=== PATIENT | male | born 1955 | race Caucasian/White ===

== ENCOUNTER → 2017-08-11 07:03 | Outpatient (CLI) | payer OTHER, SELFPAY ==
--- NOTE | 2017-08-11 07:45 | MRI_ITS ---
STUDY: MRI BRAIN WITH AND WITHOUT CONTRAST (ATTENTION INTERNAL AUDITORY CANALS - I.A.C.'s) REASON FOR EXAM: Male, 61 years old. Left ear tinnitus for 4 weeks TECHNIQUE: Standardized multiplanar fat and water weighted pulse sequences were obtained. 9 ml of Gadavist contrast material was administered intravenously for the contrast portion of the examination. COMPARISON: None. FINDINGS: Normal bilateral temporal bones. Normal bilateral internal auditory canals. There is no demonstrated intracanalicular or cisternal vestibular schwannoma (acoustic neuroma). There is no enhancement of the bilateral VIIth or VIIIth cranial nerves. Normal bilateral cochlea, vestibules and semicircular canals. Normal size of the ventricles and extra-axial spaces for the patient's age. Normal white matter tracts of the supratentorial brain. Normal bilateral basal ganglia. Normal thalami. Normal flow voids within the major intracranial circulation suggesting patency by spin echo criteria. Normal venous enhancement. There is no enhancing intra-axial or extra-axial abnormality. There is no extra-axial fluid accumulation. Normal sella turcica, pituitary gland, infundibular stalk, optic chiasm and hypothalamus. Normal tectal plate and pineal gland. Normal midbrain, pk and medulla. Normal cerebellum. Normal basal cisterns. No demonstrated orbital abnormality, within the constraints of a routine brain study. Right sphenoid sinus disease. Left mastoid sinus disease. Normal visualized soft tissue structures. Normal visualized upper cervical spine. MRI/Brain W/WO Contrast IMPRESSION: Normal unenhanced and enhanced MRI of the bilateral internal auditory canals (I.A.C's). No evidence of acute intra-axial pathology. Right sphenoid and left mastoid sinus disease. Electronically Signed: Saroj Villanueva MD at 3:20 EDT Tel , Service support ,
== END ==
PROVIDERS: Family Provider Internal Medicine; PCP Internal Medicine; Visit Provider Otolaryngology Otolaryngology/Facial Plastic Surgery
DX: H91.92 Unspecified hearing loss, left ear (principal)
CPT/HCPCS: 70553; A9585

== ENCOUNTER 2019-08-16 18:26 | Emergency (ER) | payer OTHER, SELFPAY ==
[2019-08-16 18:27] VITALS: BP 165/105; PULSE 87; RESP 16; TEMP 36.4; O2SAT 99; BMI 30.9
[2019-08-16] MEDS: Ondansetron 4 MG/2 ML Vial IV ×2 (19:08→21:20)
--- NOTE | 2019-08-16 19:16 | CT_ITS ---
STUDY: CT ABDOMEN AND PELVIS WITHOUT CONTRAST REASON FOR EXAM: Male, 63 years old. FREQUENT URINATION WITH DECREASED AMOUNTS, RIGHT FLANK PAIN AND ABD PAIN, HX HTN RADIATION DOSAGE (If Supplied By Facility): CTDIvol = ( 11.54 ) mGy, DLP = ( 623.03 ) mGycm TECHNIQUE: Transaxial images were obtained from the dome of the diaphragm to the symphysis pubis without oral contrast, and without intravenous contrast. Sagittal and coronal images were reconstructed. Individualized dose optimization techniques were used for this CT. COMPARISON: None. FINDINGS: There are mild bibasilar pulmonary opacities. The visualized portions of the heart are within normal limits. Normal liver. Normal gallbladder and extrahepatic biliary system. Normal spleen. Normal pancreas. Normal bilateral adrenal glands. There are multiple bilateral renal cysts. There are multiple right renal calculi. Largest measures 3 mm. There is moderate right hydronephrosis and hydroureter. There is a 3.5 mm calculus within the distal right ureter at the ureterovesical junction. There is 2.6 cm x 2 cm left renal cyst with peripheral calcification. There is a 1 cm hyperdense lesion in the upper pole of the left kidney. 1 mm calculus within upper pole left kidney best seen on coronal imaging. Normal visualized stomach. Normal small intestine. Normal colon. Punctate appendicolith otherwise normal appendix. No CT evidence for appendicitis Normal abdominal aorta. Normal inferior vena cava. Normal retroperitoneum. Normal urinary bladder. Normal abdominal wall. Normal osseous structures. CT/Abdomen/Pelvis without Cont IMPRESSION: moderate right hydronephrosis and hydroureter. There is a 3.5 mm calculus within the distal right ureter at the ureterovesical junction Bilateral renal nephrolithiasis Multiple bilateral renal cysts Complicated 2.6 x 2 cm left renal cyst with peripheral calcification Indeterminate 1 cm hyperdense lesion within the upper pole of the left kidney most likely a hemorrhagic cyst. This should be further evaluated with CT with contrast or MRI with and without contrast to exclude solid renal lesion Small periumbilical fatty hernia Punctate appendicoliths, no appendicitis Electronically Signed: Reginald Schultz, at 21:04 EDT Tel , Service support ,
[2019-08-16] MEDS: HYDROmorphone 1 MG/ML Syringe IV ×2 (19:21→21:21)
[2019-08-16 19:30] LABS: Bacteria 0 SEEN /hpf (None Seen); Squamous Epithelial Cells - UA 0 SEEN /hpf (0-5); White Blood Cells 0 SEEN /hpf (0-5)
[2019-08-16 19:32] LABS: Absolute Lymphocyte Count 1.59 X10^3/uL (0.83-4.51); Absolute Neutrophil Count 10.7 X10^3/uL (2.0-7.7); Basophil# 0.02 X10^3/uL; Basophil% 0.2 % (0-1); Color, Urine Yellow (Yellow); Eosinophil# 0.01 X10^3/uL; Eosinophils% 0.1 % (0-5); Glucose, Dipstick Normal (Normal); Hematocrit 45.3 % (40-54); Ketone-Dipstick 5 mg/dl (Negative); Leukocyte Esterase-Dipstick Negative /ul (Negative); Lymphocyte # 1.59 X10^3/ul (4.0); Lymphocyte % 12.4 % (19-41); Mean Corp Hgb Conc 35.3 g/dL (32-36); Mean Corpuscular Hgb 30.3 pg (27.0-32.0); Mean Corpuscular Volume 85.8 fL (80-94); Mean Platelet Vol. 9.5 fl (6.2-12.0); Monocyte# 0.44 X10^3/uL; Monocyte% 3.4 % (0-10); NRBC Flagged by Analyzer 0 % (0-5); Neutrophil # 10.71 X10^3/uL (2.7-7.7); Neutrophil % 83.5 % (47-70); Nitrite-Dipstick Negative (Negative); Occult Blood-Urine 150 /ul (Negative); Platelet Count 240 K/mm3 (150-450); Protein-Dipstick 100 mg/dl (Negative); RBC Distribution Width CV 12.9 % (11.6-14.6); RBC Distribution Width SD 39.9 fl (35.1-43.9); Red Blood Count 5.28 M/mm3 (4.6-6.2); Urine Bilirubin Dipstick Negative (Negative); Urine Clarity Clear (Clear); Urine Urobilinogen Normal (Normal); White Blood Count 12.8 K/mm3 (4.4-11.0)
[2019-08-16 19:37] LABS: Mucous, Urine RARE /hpf (<or=2+)
[2019-08-16 19:38] LABS: Red Blood Cells-Urine 0-5 SEEN /hpf (0-5)
[2019-08-16 19:40] LABS: Anion Gap 10 (5-15); BUN 23 mg/dL (7-18); BUN/Creat Ratio 23.8 RATIO (10-20); Calcium,Total 10.2 mg/dL (8.5-10.1); Chloride 103 mmol/L (98-107); Creatinine, Serum 0.97 mg/dL (0.70-1.30); EST Glomerular Filtration Rate 84 mL/min (>60); Est Glom Filt Rate - Afr Amer 101 mL/min (>60); Estimated Creatinine Clearance 79.97 ml/min; Glucose 114 mg/dL (74-106); Potassium 3.3 mmol/L (3.5-5.1); Sodium Level 138 mmol/L (136-145)
[2019-08-16] MEDS: 0.9% Normal Saline 1,000 ML 125 ML IV (20:22)
--- NOTE | 2019-08-16 22:21 | ED.DCSUM_ITS ---
- ER Visit Summary Date of Service: 08/16/19 Chief Complaint: Flank pain radiating to his groin. History of Present Illness: The patient is a 63 M past medical history of hypertension. Patient states that he had right flank pain started this morning gradually. Associated nausea vomiting secondary to the pain. This is been pretty constant but at times it waxes and wanes in severity. He feels the urge to urinate but says it does not hurt to pee. He has not seen any gross blood. He is able to empty his bladder when he voids. He denies any fever or chills. No abdominal trauma. No prior history. Physical Examination: Older male no acute distress complain of pain vital signs are stable afebrile. H EENT exam unremarkable. Neck nontender no lymphadenopathy. Lungs clear to auscultation bilaterally. Heart regular rhythm no murmur. Abdomen soft, mildly tender right lower quadrant. Not McBurney's point. No peritoneal signs. No hernia or masses. No pulsatile mass. No distention. External exam unremarkable nontender. Extremities moves all 4. Neurovascular intact. Back nontender. Neurologically is awake alert with no focal motor deficits. Test Results: CBC shows white count 12.8 hemoglobin 16. Electrolytes unremarkable potassium 3.3 normal creatinine and gap UA positive for blood but no signs of infection. CT flank study without contrast read both by the radiologist and me shows a right distal ureter 3.5 mm stone with hydroureter and hydronephrosis. There is also stones in both kidneys and renal cyst. The appendix is not seen and there is no signs of appendicitis. Emergency Department Course and Treatment: This appears to be an acute kidney stone. Patient was treated with Dilaudid fluids and Zofran. On multiple repeat exams his pain is much better. He had I discussed all test results. He is comfortable being discharged home. Treatment Plan: [place] for pain. Zofran for nausea. Follow-up with urology. Disposition: Discharge Impression: Acute right flank pain secondary to distal right 3 mm ureteral stone Incidental finding of a renal cyst that may need further evaluation. This note was generated with [employer] dictation software. It may contain incorrect words, spelling, and punctuation that were not noted in review of the chart prior to signing ED Disposition - Plan for ED Patient: Referrals: Garry Moran [Primary Care Provider] -
--- NOTE | 2019-08-16 22:24 | DCINST.ED_ITS ---
ED Disposition - Plan for ED Patient: Disposition: Home or Assisted Living Instructions: ED Renal Stone w Colic Prescriptions: Hydrocodone/Acetaminophen [[place] 10-325 Tablet] 1 ea PO Q4H PRN PRN #14 tab PRN Reason: Pain Or Fever Prescription Printed Ondansetron [Zofran Odt] 4 mg PO Q8H PRN PRN #10 tab PRN Reason: Nausea Prescription Printed Referrals: Garry Moran [Primary Care Provider] - As Needed Elfego Madison MD [STAFF PHYSICIAN] - 3-5 Days if not improving Additional Instructions: Plenty of fluids. Strain your urine for the past stone. Return if fever, intractable pain or intractable vomiting. This is a 3.5 mm stone and should pass. [place] for pain. Zofran for nausea. Plenty of fluids and fiber to prevent constipation due to the pain medication. Have a cyst on your kidney that may need further evaluation. You can follow-up with your primary care physician or the urologist about that.
== END 2019-08-16 22:44 | disposition home or self-care (01) ==
PROVIDERS: Emergency Provider Emergency Medicine; PCP Internal Medicine
DX: R10.9 Unspecified abdominal pain (principal); N20.0 Calculus of kidney; I10 Essential (primary) hypertension
CPT/HCPCS: 74176; 80048; 81001; 85025; 96361; 96374; 96375; 96376; 99283; J7030; A4216; J2405

== ENCOUNTER 2020-12-13 14:01 | Inpatient (IN) | payer OTHER, SELFPAY ==
[2020-12-13] VITALS (12 sets, daily range): BP systolic 90–158; BP diastolic 61–98; PULSE 53–93; RESP 15–32; TEMP 35.5–37.1; O2SAT 92–99; BMI 29.5
--- NOTE | 2020-12-13 | APP_PTH ---
PATIENT: RICARDO MERCADO LOC: MS3 U#:[id number] AGE/SX: 65/M ROOM: [facility] [place] RE12/14/[address]: Dr. Pb Lacey MD : 1955 BED: 1 DIS: 12/15/2020 SPEC #: [id number] RECD: 12/14/20 07:10 STATUS: MALENA NOGUEIRAUmu #: [id number] CELSO: 12/13/20 00:[address]: Pb Lacey DEPT: SURGICAL PATHOLOGY RECD BY: Arturo Alfredo ENTERED: 12/14/20 08:51 SP TYPE: APPENDIX OTHR DR: Dr. Garry Moran MD Tissues: Appendix, NOS Procedures: Surgery Specimen Level III HEADER OPERATION: Laparoscopic appendectomy PRE-OP DIAGNOSIS: Acute appendicitis TISSUE SUBMITTED: Appendix MICROSCOPIC DIAGNOSIS Appendix, appendectomy: Fecal impaction, acute appendicitis and acute serositis. AM:vish 12/15/2020 MICROSCOPIC DESCRIPTION Slides are reviewed. GROSS DESCRIPTION Received in fixative is one container labeled with the patient's name and designated appendix. The specimen consists of an L-shaped appendix measuring 6 cm in length and up to 1 cm in diameter. A focal area of rupture is noted 1 cm away from the tip. The serosa is congested. No obvious perforation is?identified. The lumen is filled with hemorrhagic and fecal material. No fecalith is identified. Audiometrist sections are submitted in one cassette. / SJ:vish 12/14/20 TC:2 CPT: 52039
[2020-12-13 14:28] LABS: Absolute Lymphocyte Count 1.66 X10^3/uL (0.83-4.51); Absolute Neutrophil Count 8.9 X10^3/uL (2.0-7.7); Basophil# 0.04 X10^3/uL; Basophil% 0.4 % (0-1); Eosinophil# 0.02 X10^3/uL; Eosinophils% 0.2 % (0-5); Hematocrit 43.7 % (40-54); Hemoglobin 15.2 g/dL (13.0-16.5); Lymphocyte # 1.66 X10^3/ul (0.83-4.51); Lymphocyte % 14.8 % (19-41); Mean Corp Hgb Conc 34.8 g/dL (32-36); Mean Corpuscular Hgb 30.3 pg (27.0-32.0); Mean Corpuscular Volume 87.1 fL (80-94); Mean Platelet Vol. 9.6 fl (6.2-12.0); Monocyte% 5.3 % (0-10); NRBC Flagged by Analyzer 0 % (0-5); Platelet Count 231 K/mm3 (150-450); RBC Distribution Width CV 13.1 % (11.6-14.6); RBC Distribution Width SD 41.3 fl (35.1-43.9); Red Blood Count 5.02 M/mm3 (4.6-6.2); White Blood Count 11.3 K/mm3 (4.4-11.0)
[2020-12-13 14:37] LABS: Anion Gap 7 (5-15); BUN 18 mg/dL (7-18); BUN/Creat Ratio 22.3 RATIO (10-20); Calcium,Total 8.9 mg/dL (8.5-10.1); Chloride 104 mmol/L (98-107); Creatinine, Serum 0.81 mg/dL (0.70-1.30); EST Glomerular Filtration Rate 103 mL/min (>60); Est Glom Filt Rate - Afr Amer 124 mL/min (>60); Estimated Creatinine Clearance 93.35 ml/min; Glucose 106 mg/dL (74-106); Potassium 3.8 mmol/L (3.5-5.1); Sodium Level 137 mmol/L (136-145)
--- NOTE | 2020-12-13 15:48 | CT_ITS ---
We are attempting to reach an attending provider to discuss findings. An addendum with communication details will be sent when the communication is complete. STUDY: CT ABDOMEN AND PELVIS WITH CONTRAST REASON FOR EXAM: Male, 65 years old. abdominal pain. Left partial renal nephrectomy RADIATION DOSAGE (If Supplied By Facility): CTDIvol = ( 14.29 ) mGy, DLP = ( 986.19 ) mGycm TECHNIQUE: Transaxial images were obtained from the dome of the diaphragm to the symphysis pubis without oral contrast. IV 100mL Isovue-300 was administered. Sagittal and coronal images were reconstructed. Individualized dose optimization techniques were used for this CT. COMPARISON: 08/16/2019 report only FINDINGS: The visualized lung bases are unremarkable. The visualized portions of the heart are within normal limits. Nonspecific fatty infiltrated liver without mass or bile duct dilatation Normal gallbladder and extrahepatic biliary system. Normal spleen. Normal pancreas. Normal bilateral adrenal glands. There are multiple approximately 5 tiny nonobstructing right renal calculi. Multiple small renal cysts.. Postsurgical changes status post partial nephrectomy of the upper pole of the left kidney. There are 3 simple cysts in left kidney. Normal visualized stomach. Normal small intestine. Normal colon. There are appendicoliths noted appendix which is diffusely dilated measuring approximately 12 mm in size suspicious for early changes of acute appendicitis extending into the lower right pelvis though there is no appreciable thickening of the wall or inflammatory stranding in the fat at this time Minor atherosclerotic changes of the aorta without evidence for aneurysm.. Normal inferior vena cava. Normal retroperitoneum. Normal urinary bladder. Nonspecific enlargement of prostate Normal abdominal wall. Lumbar spine demonstrates degenerative changes CT/Abdomen/Pelvis W IV Cont ONLY IMPRESSION: Findings which may be consistent with early changes of acute appendicitis. Postsurgical changes status post partial nephrectomy of the left kidney. Right nephrolithiasis without evidence for hydronephrosis. Bilateral renal cysts. Electronically Signed: Bimal Candelaria MD at 16:49 EDT , Service support ,
--- NOTE | 2020-12-13 15:49 | EDS_ITS ---
HPI History of Present Illness Chief Complaint: Abd Pain Informant: patient Narrative Narrative: 65-year-old male presents the emergency room with lower abdominal pain. Symptoms began acutely at around 0900 hours. He states that it came on quite strong and is now mostly a dull ache. He notes a couple episodes of vomiting. No bowel changes. No fevers. He has had a history of a partial left nephrectomy due to renal cancer. He also had a kidney stone about a year and a half ago. [facility] Medical History (Updated 12/13/20 @ 17:[address] Pb Stanley DO) Hypercholesterolemia Hypertension Renal cancer Home Medications atenolol 50 mg PO DAILY 09/06/13 [History Last Taken Unknown] atorvastatin 10 mg PO QHS 09/06/13 [History Last Taken Unknown] ondansetron 4 mg PO Q8H PRN PRN #10 tab 08/16/19 [Rx Last Taken Unknown] hydrochlorothiazide 12.5 mg PO DAILY 12/13/20 [History Last Taken Unknown] losartan 100 mg PO DAILY 12/13/20 [History Last Taken Unknown] sertraline 100 mg PO DAILY 12/13/20 [History Last Taken Unknown] Allergy/AdvReac Type Severity Reaction Status Date / Time No Known Allergies Allergy Verified 12/13/20 14:05 Surgical History H/O partial nephrectomy Social History (Updated 12/13/20 @ 15:[address] Pb Stanley DO) Smoking Status: Never smoker substance use type: does not use ROS ROS ED Constitutional Constitutional ED: Denies chills or weight loss Eyes Eyes: Denies change in vision or diplopia ENT ENT ED: Denies ear pain, rhinorrhea or sore throat Cardiovascular Cardiovascular: Denies chest pain, orthopnea, palpitations or racing heartbeat Respiratory/Chest Respiratory/Chest: Denies cough, dyspnea or orthopnea Gastrointestinal Gastrointestinal: Reports abdominal pain, nausea and vomiting; Denies constipation or diarrhea Genitourinary Genitourinary ED: Denies dysuria, hematuria or urinary frequency Musculoskeletal Musculoskeletal: Denies arthralgias or myalgias Integumentary Denies abscess or rash Neurologic Neurologic: Denies headache(s) or weakness Psychiatric Psychiatric: Denies anxiety, depression, suicidal ideation or suicidal thoughts Endocrine Endocrinology: Denies polydipsia, polyphagia or polyuria Allergic/Immunologic Allergic/Immunologic ED: Denies mouth swelling, tongue swelling or urticaria EXAM Physical Exam Const Vital Signs: 12/13/20 14:02 Temperature 96 F L Temperature Source Temporal Pulse Rate 53 L Respiratory Rate 17 Blood Pressure 117/68 Blood Pressure Mean 84 Pulse Ox 99 Oxygen Delivery Method Room Air Positive well nourished and well developed General Appearance ED: well developed HEENT Reports normocephalic, head/scalp atraumatic and moist mucous membranes Eyes PERRL and EOMs intact bilaterally Neck no lymphadenopathy, supple and no JVD Resp normal respiratory effort and clear to auscultation bilaterally Cardio regular rate, regular rhythm and no murmurs GI Palpation: soft and tender RLQ; Negative for guarding or rebound tenderness present Back/Spine no CVA tenderness and normal ROM Extremity normal to inspection General Extremety ED: Negative for edema General Extremity: Negative for edema Neuro oriented x3 and CN's II-XII intact bilaterally Sensorium / Orientation: alert Motor Exam: strength 5/5 throughout Psych mental status grossly normal Mood & Affect: Negative for depressed or tearful Skin no rashes or lesions noted and no wounds MDM MDM MDM Narrative Medical decision making narrative: White count returns 11.3. Urinalysis no overt infection. CT of the pelvis demonstrates findings consistent with appendicitis. Patient received pain and nausea medication as well as IV fluids. He is remained n.p.o. He will also get a Covid test and Zosyn. I spoke with Dr. Lacey from surgery who will be seeing the patient Lab Data Attestation: I reviewed the patient's lab results. Labs: Laboratory Results - last 24 hr 12/13/20 12/13/20 12/13/20 14:10 14:10 16:05 WBC 11.3 H RBC 5.02 Hgb 15.2 Hct 43.7 MCV 87.1 MCH 30.3 MCHC 34.8 RDW Std Deviation 41.3 RDW Coeff of Selin 13.1 Plt Count 231 MPV 9.6 Immature Gran % (Auto) 0.300 Neut % (Auto) 79.0 H Lymph % (Auto) 14.8 L [place] % (Auto) 5.3 Eos % (Auto) 0.2 Baso % (Auto) 0.4 Absolute Neuts (auto) 8.9 H Absolute Lymphs (auto) 1.66 Nucleated RBC % 0 Sodium 137 Potassium 3.8 Chloride 104 Carbon Dioxide 26.0 Anion Gap 7 BUN 18 Creatinine 0.81 Estim Creat Clear Calc 93.35 Est GFR (MDRD) Af Amer 124 Est GFR (MDRD) Non-Af 103 BUN/Creatinine Ratio 22.3 H Glucose 106 Calcium 8.9 Urine Color Yellow Urine Clarity Clear Urine pH 5.0 Ur Specific [place] 1.025 Urine Protein 15 H Urine Glucose (UA) Normal Urine Ketones Negative Urine Occult Blood Negative Urine Nitrite Negative Urine Bilirubin Negative Urine Urobilinogen Normal Ur Leukocyte Esterase 25 H Urine RBC 0 SEEN Urine WBC 0-5 SEEN Ur Squamous Epith Cells 0 SEEN Urine Bacteria 1+ Urine Mucus 3+ Radiography Diagnostic Testing: Radiology Impression Abdomen/Pelvis CT 12/13/20 15:48 IMPRESSION: Findings which may be consistent with early changes of acute appendicitis. Postsurgical changes status post partial nephrectomy of the left kidney. Right nephrolithiasis without evidence for hydronephrosis. Bilateral renal cysts. Electronically Signed: Bimal Candelaria MD at 16:49 EDT , Service support , Discharge Plan Triage Chief Complaint: Abd Pain ED Provider: Pb Stanley Dx/Rx/DC Orders Clinical Impression: Acute appendicitis Prescriptions: No Action atorvastatin 20 MG tablet 10 mg PO QHS RF: 0 atenolol 50 MG tablet 50 mg PO DAILY RF: 0 ondansetron 4 MG tablet 4 mg PO Q8H PRN PRN (Reason: Nausea) Qty: 10 RF: 0 sertraline 100 mg tablet 100 mg PO DAILY RF: 0 hydrochlorothiazide 12.5 mg capsule 12.5 mg PO DAILY RF: 0 losartan 100 mg tablet 100 mg PO DAILY RF: 0 Primary Care Provider: Garry Moran Referrals: Garry Moran MD [Primary Care Provider] - Disposition Disposition: [facility]
[2020-12-13] MEDS: Ondansetron 4 MG/2 ML Vial IV (16:04)
[2020-12-13] MEDS: Morphine 4 MG/ML Syringe IV (16:04)
[2020-12-13] MEDS: 0.9% Normal Saline 1,000 ML 1000 ML IV (16:04)
[2020-12-13 16:13] LABS: Red Blood Cells-Urine 0 SEEN /hpf (0-5); Squamous Epithelial Cells - UA 0 SEEN /hpf (0-5)
[2020-12-13 16:18] LABS: Color, Urine Yellow (Yellow); Glucose, Dipstick Normal (Normal); Ketone-Dipstick Negative (Negative); Leukocyte Esterase-Dipstick 25 /ul (Negative); Nitrite-Dipstick Negative (Negative); Occult Blood-Urine Negative /ul (Negative); Protein-Dipstick 15 mg/dl (Negative); Specific Gravity, Urine 1.025 (1.002-1.030); Urine Bilirubin Dipstick Negative (Negative); Urine Clarity Clear (Clear); Urine Urobilinogen Normal (Normal)
[2020-12-13 16:35] LABS: Bacteria 1+ /hpf (None Seen); Mucous, Urine 3+ /hpf (<or=2+); White Blood Cells 0-5 SEEN /hpf (0-5)
--- NOTE | 2020-12-13 17:03 | NURSING ---
DR CASTELAN FOR DR MOY
--- NOTE | 2020-12-13 17:11 | NURSING ---
DR CASTELAN IN ER
--- NOTE | 2020-12-13 17:12 | NURSING ---
OR FLIP ACUTE APPENDICITIS
--- NOTE | 2020-12-13 17:27 | CON.PCM.SX_ITS ---
Assessment & Plan Assessment/Plan (1) Acute appendicitis: QUALIFIERS: Acute appendicitis type: with localized peritonitis Appendicitis gangrene presence: without gangrene Appendicitis perforation presence: without perforation Appendicitis abscess presence: without abscess Qualified Code(s): K35.30 - Acute appendicitis with localized peritonitis, without perforation or gangrene PLAN: Plan will be to perform a laparoscopic appendectomy. Risk benefits include bleeding infection possible delayed abscess formation of all been reviewed with the patient. We reviewed the pre-operative plans with the patient. Risks and benefits of the procedure were fully explained, including but not limited to infection, neurovascular injury, continued pain, arthritis, stiffness, need for further surgery, re-injury, DVT, PE, general risks of anesthesia, and loss of the limb or life. The patient understands all the risks and does wish to proceed with written consent. HPI Consult Data Date of Consult: 12/13/20 HPI Narrative HPI Narrative: RICARDO MERCADO, is a 65 M who presents to the emergency room with lower abdominal pain. Symptoms began acutely at around 0900 hours. He states that it came on quite strong and is now mostly a dull ache. He notes a couple episodes of vomiting. No bowel changes. No fevers. He has had a history of a partial left nephrectomy due to renal cancer. He also had a kidney stone about a year and a half ago. CT scan of the abdomen and pelvis was obtained which showed early acute appendicitis. No signs of abscess or perforation. [facility] Medical History Hypercholesterolemia Hypertension Renal cancer Home Medications atenolol 50 mg PO DAILY 09/06/13 [History Last Taken 12/13/20] atorvastatin 10 mg PO DAILY 12/13/20 [History Last Taken 12/13/20] hydrochlorothiazide 12.5 mg PO DAILY 12/13/20 [History Last Taken 12/13/20] losartan 100 mg PO DAILY 12/13/20 [History Last Taken 12/13/20] sertraline 100 mg PO DAILY 12/13/20 [History Last Taken 12/13/20] Allergy/AdvReac Type Severity Reaction Status Date / Time No Known Allergies Allergy Verified 12/13/20 14:05 Surgical History H/O partial nephrectomy Social History Smoking Status: Never smoker substance use type: does not use ROS Constitutional Constitutional: Denies chills or fatigue Eyes Eyes: Denies blurry vision ENT HEENT: Denies dysphagia Cardiovascular Cardiovascular: Denies chest pain Respiratory/Chest Respiratory/Chest: Denies cough or dyspnea Gastrointestinal Gastrointestinal: Reports abdominal pain, nausea and vomiting; Denies constipation or diarrhea Genitourinary Genitourinary: Denies change in urinary stream Physical Exam Const alert and oriented x3 General Appearance: cooperative HEENT normocephalic and head/scalp atraumatic Eyes PERRL and EOMs intact bilaterally Neck no JVD Lymph Lymphatic: lymphadenopathy Resp clear to auscultation bilaterally Cardio Rate: regular rate Rhythm: regular rhythm GI soft to palpation Auscultation: normoactive bowel sounds Palpation: tender McBurney's point Bladder / Kidney Exam: no CVA tenderness Extremity normal to inspection Lab / Micro Data Result Diagrams: 12/13/20 14:10 12/13/20 14:10 Labs: Laboratory Results - last 24 hr 12/13/20 14:10: WBC 11.3 H, RBC 5.02, Hgb 15.2, Hct 43.7, MCV 87.1, MCH 30.3, MCHC 34.8, RDW Std Deviation 41.3, RDW Coeff of Selin 13.1, Plt Count 231, MPV 9.6, Immature Gran % (Auto) 0.300, Neut % (Auto) 79.0 H, Lymph % (Auto) 14.8 L, [place] % (Auto) 5.3, Eos % (Auto) 0.2, Baso % (Auto) 0.4, Absolute Neuts (auto) 8.9 H, Absolute Lymphs (auto) 1.66, Nucleated RBC % 0 12/13/20 14:10: Sodium 137, Potassium 3.8, Chloride 104, Carbon Dioxide 26.0, Anion Gap 7, BUN 18, Creatinine 0.81, Estim Creat Clear Calc 93.35, Est GFR (MDRD) Af Amer 124, Est GFR (MDRD) Non-Af 103, BUN/Creatinine Ratio 22.3 H, Glucose 106, Calcium 8.9 12/13/20 16:05: Urine Color Yellow, Urine Clarity Clear, Urine pH 5.0, Ur Specific [place] 1.025, Urine Protein 15 H, Urine Glucose (UA) Normal, Urine Ketones Negative, Urine Occult Blood Negative, Urine Nitrite Negative, Urine Bilirubin Negative, Urine Urobilinogen Normal, Ur Leukocyte Esterase 25 H, Urine RBC 0 SEEN, Urine WBC 0-5 SEEN, Ur Squamous Epith Cells 0 SEEN, Urine Bacteria 1+, Urine Mucus 3+ Radiology Impression Abdomen/Pelvis CT 12/13/20 15:48 IMPRESSION: Findings which may be consistent with early changes of acute appendicitis. Postsurgical changes status post partial nephrectomy of the left kidney. Right nephrolithiasis without evidence for hydronephrosis. Bilateral renal cysts. Electronically Signed: Bimal Candelaria MD at 16:49 EDT , Service support , ADDENDUM: 12/13/20 1718 IMPRESSION: Findings which may be consistent with early changes of acute appendicitis. Postsurgical changes status post partial nephrectomy of the left kidney. Right nephrolithiasis without evidence for hydronephrosis. Bilateral renal cysts. N.B. : Pb Stanley MD, confirmed on 12/13/2020 17:11:11 (ET) that the referring physician received the results and does not require a verbal communication. Electronically Signed: Bimal Candelaria MD at 16:49 EDT , Service support ,
--- NOTE | 2020-12-13 17:48 | EKG12_ITS ---
Test Reason : PREOP Blood Pressure : / mmHG Vent. Rate : 057 BPM Atrial Rate : 057 BPM P-R Int : 194 ms QRS Dur : 088 ms QT Int : 472 ms P-R-T Axes : 047 -08 027 degrees QTc Int : 459 ms Sinus bradycardia Otherwise normal ECG Confirmed by JEREMÍAS CR, REMI ([id number]), social media editor GABRIELLE ROGEL ([id number]) on 12/16/2020 10:01:32 AM Referred By: Confirmed By:REMI VERONICA MD
[2020-12-13] MEDS: 0.9% Normal Saline 1,000 ML 75 ML IV ×2 (18:30→21:30)
[2020-12-13] MEDS: Bupivacaine Mpf 0.5% 30 ML VIAL (19:01)
--- NOTE | 2020-12-13 19:06 | OP.PCM_ITS ---
Problems Associated Problem List Diagnoses (1) Acute appendicitis: Report of Operation Date of Procedure: 12/13/20 Pre-Operative Diagnosis: Acute appendicitis Post-Operative Diagnosis: Same Surgery/Procedure Performed:: Laparoscopic appendectomy Surgeon: Pb Lacey information technology assistant: None information technology assistant: Grant Thomas Type of Anesthesia: General Anesthesiologist: Carlos Schumacher Specimen's removed: Appendix Estimated Blood Loss (mL): < 25 cc Description of Procedure: Patient was brought into the operating room. Placed in the supine position. Under excellent general endotracheal ovation abdomen was sterilely prepped draped in usual fashion. Local was injected infraumbilically curvilinear incision was made. Dissection was carried down to the umbilical area had a very tiny umbilical defect varies needle placed inside the abdomen the abdomen was insufflated 15 torr a 10/12 trocar was placed without difficulty. Patient was placed in the headdown and rotated to the left. Suprapubic #5 trocar was placed, laterally a #5 trocar was placed. Both of these under direct visualization without injury to underlying structures patient was noted to have acute appendicitis very thin walled appendix as soon as I touched it it opened up and I had to contain some stool coming from it which I was easily able to do. I came down on the mesoappendix with the Enseal. I transected the base the appendix with a 45 linear cutter[address] Placed the specimen in a specimen bag and delivered through the umbilical port without difficulty. Around the small bowel no Meckel's diverticulum was identified. I irrigated out the pelvis with 2 L of irrigation all my irrigant was clear I saw no stool material within the peritoneal area. He did have a small little bleeding injury which I controlled with touch cautery. In the end he had excellent hemostasis. I removed the trochars under direct visualization good epistasis was noted. I closed the umbilical defect with 3 interrupted sutures of 3-0 nylon. Local was injected into the umbilical area. Skin incisions were closed with subcuticular stitches of 4-0 Monocryl. Steri-Strips were applied sterile dressings were applied and the patient tolerated the procedure well. Admit VTE Documentation VTE Present on Admission: No VTE Mechan Device Prophylaxis: SCD's VTE Pharm Prophylaxis ordered?: No Reason prophylaxis not ordered:: Treatment Not Indicated
--- NOTE | 2020-12-13 19:13 | EX.PCM.DISCH ---
Discharge Instructions Procedure Appendectomy Diet Discharge Diet: Light diet - advance as tolerated (if you have questions about your diet instructions, please talk to you doctor.) Activity Discharge Activity: May Not Drive (for 3-5 days or while taking narcotic pain meds.) May shower in (days): 1 Dressing / Incision Call your doctor if your incision/area has: Continuous Slow Oozing, Sudden Increased Bleeding, Increased Pain/ Swelling, Increased Redness and Foul Smelling Discharge Call your doctor if you observe: Fever of 101 or Higher Suture Line Care: Avoid Pulling/Pushing and Avoid Pinching/Bending Additional Dressing/Incision Instructions:: Keep dressing clean and dry. Change or remove dressing in 2 days. Leave steri strips for 1 week. May protect with a gauze bandaid. Follow Up Care Please Follow Up With: Flaquita Mckeon PA-C When: Call office to schedule an appointment to be seen in 1 week. Test Results: Test results from this visit will be discussed in further detail at your follow-up appointment, if applicable. Discharge Plan Admission Admit Date/Time: 12/13/20 18:47 Attending Provider: Pb Lacey Primary Care Provider: Garry Moran Instructions Patient Instructions: What Is Appendicitis?, Surgery for Appendicitis, Discharge Instructions for ... Discharge Orders/Prescriptions Prescriptions: New oxycodone-acetaminophen [Endocet] 5-325 mg tablet 1 tab PO Q4H PRN (Reason: pain) 5 Days Qty: 20 RF: 0 Continued atenolol 50 MG tablet 50 mg PO DAILY RF: 0 sertraline 100 mg tablet 100 mg PO DAILY RF: 0 hydrochlorothiazide 12.5 mg capsule 12.5 mg PO DAILY RF: 0 losartan 100 mg tablet 100 mg PO DAILY RF: 0 atorvastatin 10 mg tablet 10 mg PO DAILY RF: 0 Referrals / Follow Up: Garry Moran MD [Primary Care Provider] -
[2020-12-13] MEDS: oxyCODONE 5 MG Tablet PO (22:13)
[2020-12-14] VITALS (9 sets, daily range): BP systolic 126–143; BP diastolic 78–87; PULSE 84–92; RESP 16–18; TEMP 36.4–37.1; O2SAT 86–96
[2020-12-14] MEDS: HYDROmorphone 0.5 MG/0.5 ML SYRINGE IV (00:10)
[2020-12-14] MEDS: 0.9% Saline Lock 10 ML Syringe IV (00:15)
[2020-12-14] MEDS: oxyCODONE 5 MG Tablet PO ×2 (04:55→08:48)
[2020-12-14 06:18] LABS: Absolute Lymphocyte Count 0.81 X10^3/uL (0.83-4.51); Absolute Neutrophil Count 11.5 X10^3/uL (2.0-7.7); Basophil# 0.01 X10^3/uL; Basophil% 0.1 % (0-1); Hematocrit 40.6 % (40-54); Hemoglobin 13.9 g/dL (13.0-16.5); Lymphocyte # 0.81 X10^3/ul (0.83-4.51); Lymphocyte % 6.3 % (19-41); Mean Corp Hgb Conc 34.2 g/dL (32-36); Mean Corpuscular Hgb 29.9 pg (27.0-32.0); Mean Corpuscular Volume 87.3 fL (80-94); Mean Platelet Vol. 9.1 fl (6.2-12.0); Monocyte# 0.47 X10^3/uL; Monocyte% 3.7 % (0-10); NRBC Flagged by Analyzer 0 % (0-5); Neutrophil # 11.49 X10^3/uL (2.7-7.7); Neutrophil % 89.6 % (47-70); Platelet Count 186 K/mm3 (150-450); RBC Distribution Width CV 13.4 % (11.6-14.6); Red Blood Count 4.65 M/mm3 (4.6-6.2); White Blood Count 12.8 K/mm3 (4.4-11.0)
[2020-12-14 06:43] LABS: Anion Gap 6 (5-15); BUN 13 mg/dL (7-18); BUN/Creat Ratio 16.6 RATIO (10-20); Calcium,Total 8.2 mg/dL (8.5-10.1); Chloride 105 mmol/L (98-107); Creatinine, Serum 0.78 mg/dL (0.70-1.30); EST Glomerular Filtration Rate 106 mL/min (>60); Est Glom Filt Rate - Afr Amer 128 mL/min (>60); Estimated Creatinine Clearance 96.94 ml/min; Glucose 110 mg/dL (74-106); Potassium 3.5 mmol/L (3.5-5.1); Sodium Level 139 mmol/L (136-145)
--- NOTE | 2020-12-14 11:40 | PN.SURG_ITS ---
Subjective Subjective Patient had a rough night last night. Significant abdominal bloating some discomfort. He is not passing any flatus nor is he had a bowel movement yet he is complaining of a headache. Objective Data Objective Data Abdomen is distended dressings are dry hypoactive bowel sounds Vital Signs: Vital Signs Temp Pulse Resp BP Pulse Ox 98.6 F 89 18 138/86 H 92 12/14/20 09:20 12/14/20 09:20 12/14/20 09:20 12/14/20 09:20 12/14/20 09:41 Oxygen Flow Rate (L/min) 2 Oxygen Delivery Method Nasal Cannula Weight: 200 lb Body Mass Index (BMI) 29.5 Intake & Output: Intake and Output for Last 24 Hours 12/12/20 12/13/20 12/14/20 23:59 23:59 23:59 Intake Total 2049 / 0 1912.5 / 1912.5 Output Total 475 / 475 250 / 250 Balance 1575 / 1575 1662.5 / 1662.5 Lab / Micro Data Result Diagrams: 12/14/20 06:04 12/14/20 06:04 Labs: Laboratory Results - last 24 hr 12/13/20 14:10: WBC 11.3 H, RBC 5.02, Hgb 15.2, Hct 43.7, MCV 87.1, MCH 30.3, MCHC 34.8, RDW Std Deviation 41.3, RDW Coeff of Selin 13.1, Plt Count 231, MPV 9.6, Immature Gran % (Auto) 0.300, Neut % (Auto) 79.0 H, Lymph % (Auto) 14.8 L, [place] % (Auto) 5.3, Eos % (Auto) 0.2, Baso % (Auto) 0.4, Absolute Neuts (auto) 8.9 H, Absolute Lymphs (auto) 1.66, Nucleated RBC % 0 12/13/20 14:10: Sodium 137, Potassium 3.8, Chloride 104, Carbon Dioxide 26.0, Anion Gap 7, BUN 18, Creatinine 0.81, Estim Creat Clear Calc 93.35, Est GFR (MDRD) Af Amer 124, Est GFR (MDRD) Non-Af 103, BUN/Creatinine Ratio 22.3 H, Glucose 106, Calcium 8.9 12/13/20 16:05: Urine Color Yellow, Urine Clarity Clear, Urine pH 5.0, Ur Specific [place] 1.025, Urine Protein 15 H, Urine Glucose (UA) Normal, Urine Ketones Negative, Urine Occult Blood Negative, Urine Nitrite Negative, Urine Bilirubin Negative, Urine Urobilinogen Normal, Ur Leukocyte Esterase 25 H, Urine RBC 0 SEEN, Urine WBC 0-5 SEEN, Ur Squamous Epith Cells 0 SEEN, Urine Bacteria 1+, Urine Mucus 3+ 12/14/20 06:04: WBC 12.8 H, RBC 4.65, Hgb 13.9, Hct 40.6, MCV 87.3, MCH 29.9, MCHC 34.2, RDW Std Deviation 43.0, RDW Coeff of Selin 13.4, Plt Count 186, MPV 9.1, Immature Gran % (Auto) 0.300, Neut % (Auto) 89.6 H, Lymph % (Auto) 6.3 L, [place] % (Auto) 3.7, Eos % (Auto) 0.0, Baso % (Auto) 0.1, Absolute Neuts (auto) 11.5 H, Absolute Lymphs (auto) 0.81 L, Nucleated RBC % 0 12/14/20 06:04: Sodium 139, Potassium 3.5, Chloride 105, Carbon Dioxide 28.0, Anion Gap 6, BUN 13, Creatinine 0.78, Estim Creat Clear Calc 96.94, Est GFR (MDRD) Af Amer 128, Est GFR (MDRD) Non-Af 106, BUN/Creatinine Ratio 16.6, Glucose 110 H, Calcium 8.2 L Micro: Microbiology 12/13/20 Unknown Tissue - Aerobic & Anaerobic Swabs Gram Stain - Final 12/13/20 Unknown Tissue - Aerobic & Anaerobic Swabs Wound Culture - Preliminary GNR lactose parliamentary archivist 12/13/20 17:05 Mucosa - Nose SARS-CoV-2 Antigen (Rapid) - Final Radiography Diagnostic Testing: Radiology Impression Abdomen/Pelvis CT 12/13/20 15:48 IMPRESSION: Findings which may be consistent with early changes of acute appendicitis. Postsurgical changes status post partial nephrectomy of the left kidney. Right nephrolithiasis without evidence for hydronephrosis. Bilateral renal cysts. Electronically Signed: Bimal Candelaria MD at 16:49 EDT , Service support , ADDENDUM: 12/13/20 1718 IMPRESSION: Findings which may be consistent with early changes of acute appendicitis. Postsurgical changes status post partial nephrectomy of the left kidney. Right nephrolithiasis without evidence for hydronephrosis. Bilateral renal cysts. N.B. : Pb Stanley MD, confirmed on 12/13/2020 17:11:11 (ET) that the referring physician received the results and does not require a verbal communication. Electronically Signed: Bimal Candelaria MD at 16:49 EDT , Service support , Assessment & Plan Assessment/Plan (1) Acute appendicitis: QUALIFIERS: Acute appendicitis type: with localized peritonitis Appendicitis gangrene presence: without gangrene Appendicitis perforation presence: without perforation Appendicitis abscess presence: without abscess Qualified Code(s): K35.30 - Acute appendicitis with localized peritonitis, without perforation or gangrene PLAN: Postoperative day #1 We will make the patient a full admit. His white count did elevate slightly. We will keep him on his antibiotics. It is growing out a gram-negative lactose parliamentary archivist.
[2020-12-14] MEDS: Acetaminophen 325 MG Tablet 650 MG PO (12:02)
[2020-12-14] MEDS: 0.9% Normal Saline 1,000 ML 15 ML IV (12:04)
[2020-12-14] MEDS: Ibuprofen 600 MG Tablet PO (17:01)
[2020-12-14] MEDS: Senna/Docusate Sodium 1 Tablet 2 TABLET PO (19:15)
--- NOTE | 2020-12-14 23:54 | NURSING ---
Pt was able to ambulate independently in halls this evening. Encouraged ambulation and use of IS
[2020-12-15] MEDS: 0.9% Normal Saline 1,000 ML 75 ML IV (00:26)
[2020-12-15] MEDS: oxyCODONE 5 MG Tablet PO ×3 (00:27→15:29)
[2020-12-15 02:05] VITALS: BP 150/82; PULSE 82; RESP 18; TEMP 36.5; O2SAT 93
[2020-12-15] MEDS: Ibuprofen 600 MG Tablet PO (02:51)
[2020-12-15 06:32] LABS: Absolute Lymphocyte Count 0.84 X10^3/uL (0.83-4.51); Absolute Neutrophil Count 11.3 X10^3/uL (2.0-7.7); Basophil# 0.03 X10^3/uL; Basophil% 0.2 % (0-1); Eosinophil# 0.03 X10^3/uL; Eosinophils% 0.2 % (0-5); Lymphocyte # 0.84 X10^3/ul (0.83-4.51); Lymphocyte % 6.5 % (19-41); Mean Corp Hgb Conc 34.1 g/dL (32-36); Mean Corpuscular Hgb 30.1 pg (27.0-32.0); Mean Corpuscular Volume 88.2 fL (80-94); Mean Platelet Vol. 9.5 fl (6.2-12.0); Monocyte# 0.59 X10^3/uL; Monocyte% 4.6 % (0-10); NRBC Flagged by Analyzer 0 % (0-5); Neutrophil # 11.26 X10^3/uL (2.7-7.7); Neutrophil % 87.9 % (47-70); Platelet Count 177 K/mm3 (150-450); RBC Distribution Width CV 13.6 % (11.6-14.6); RBC Distribution Width SD 43.8 fl (35.1-43.9); Red Blood Count 4.65 M/mm3 (4.6-6.2); White Blood Count 12.8 K/mm3 (4.4-11.0)
[2020-12-15] MEDS: Acetaminophen 325 MG Tablet 650 MG PO (06:39)
[2020-12-15 06:50] LABS: AST(SGOT) 15 U/L (15-37); Alanine Aminotransfer ALT/SGPT 21 U/L (16-61); Albumin, Serum 3.6 g/dL (3.2-5.0); Alkaline Phosphatase 71 U/L (45-117); Anion Gap 5 (5-15); BUN 10 mg/dL (7-18); BUN/Creat Ratio 13.6 RATIO (10-20); Calcium,Total 8.9 mg/dL (8.5-10.1); Chloride 103 mmol/L (98-107); Creatinine, Serum 0.73 mg/dL (0.70-1.30); EST Glomerular Filtration Rate 115 mL/min (>60); Est Glom Filt Rate - Afr Amer 139 mL/min (>60); Estimated Creatinine Clearance 103.57 ml/min; Globulin 3.6 g/dL (2.2-4.2); Glucose 109 mg/dL (74-106); Potassium 3.1 mmol/L (3.5-5.1); Protein, Total 7.2 g/dL (6.4-8.2); Sodium Level 138 mmol/L (136-145)
[2020-12-15 07:17] VITALS: BP 160/94; PULSE 83; RESP 16; TEMP 36.9; O2SAT 93
[2020-12-15] MEDS: Senna/Docusate Sodium 1 Tablet 2 TABLET PO (07:21)
[2020-12-15 07:42] VITALS: O2SAT 93
[2020-12-15] MEDS: Calcium Carbonate 500 MG Tablet 1000 MG PO (07:55)
--- NOTE | 2020-12-15 11:25 | CASEMGMT ---
PRANEETH TAVAREZ Assessment: Face to Face with pt for initial transition planning/care coordination assessment. PRANEETH TAVAREZ introduced self and role at [facility], pt voices understanding and consents to assessment. Pt is A/O x4 and answers all questions appropriately at this time. Pt sitting up in chair in no distress. Care providers, pharmacy, and demographics verified/updated. Admitting Dx: acute appendicitis PCP:Luisa Specialists: Nephro from [facility], pt unsure of name. Preferred Pharmacy: [facility] while inpatient. Insurance: [employer] Prescription Benefit: yes LW/HPOA: Pt denies having any LW/DPOA. LNOK: Mady Morales, Living Arrangements: Pt lives with in a two story house with two steps to enter. Pt is I in ADL's and denies concerns at home. Transportation: Pt drives self and denies concerns with transportation. DME/HHC/SNF: Pt denies having any DME at home, hx of HHC or SNF stays. 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 Pt states no concerns with going home at time of dc. Pt states no further concerns/needs. CM to follow. Advised pt to ask CM if any further question/concerns/needs arise, voices understanding. Pt Goal: Home Plan: Home with support.
--- NOTE | 2020-12-15 13:32 | NURSING ---
pharmacy notified to change 1400 zosyn to [address] truong d/t brittney.
--- NOTE | 2020-12-15 13:37 | PCM.PN.SRG ---
Subjective Subjective Had some shoulder pain last night.Patient feeling significantly better today. Passing flatus. Objective Data Objective Data Dressings are dry abdomen is significantly softer today. No rebound guarding or peritoneal signs are identified. Vital Signs: Vital Signs Temp Pulse Resp BP Pulse Ox 98.5 F 83 16 160/94 H 93 12/15/20 07:17 12/15/20 07:17 12/15/20 07:17 12/15/20 07:17 12/15/20 07:42 Oxygen Flow Rate (L/min) 2 Oxygen Delivery Method Room Air Weight: 200 lb Body Mass Index (BMI) 29.5 Intake & Output: Intake and Output for Last 24 Hours 12/13/20 12/14/20 12/15/20 23:59 23:59 23:59 Intake Total 2050 / 2050 2802.75 / 2802.75 2226.25 / 2226.25 Output Total 475 / 475 250 / 250 Balance 1575 / 1575 2552.75 / 2552.75 2226.25 / 2226.25 Lab / Micro Data Result Diagrams: 12/15/20 06:20 12/15/20 06:20 Labs: Laboratory Results - last 24 hr 12/15/20 06:20: WBC 12.8 H, RBC 4.65, Hgb 14.0, Hct 41.0, MCV 88.2, MCH 30.1, MCHC 34.1, RDW Std Deviation 43.8, RDW Coeff of Selin 13.6, Plt Count 177, MPV 9.5, Immature Gran % (Auto) 0.600, Neut % (Auto) 87.9 H, Lymph % (Auto) 6.5 L, [place] % (Auto) 4.6, Eos % (Auto) 0.2, Baso % (Auto) 0.2, Absolute Neuts (auto) 11.3 H, Absolute Lymphs (auto) 0.84, Nucleated RBC % 0 12/15/20 06:20: Sodium 138, Potassium 3.1 L, Chloride 103, Carbon Dioxide 30.0, Anion Gap 5, BUN 10, Creatinine 0.73, Estim Creat Clear Calc 103.57, Est GFR (MDRD) Af Amer 139, Est GFR (MDRD) Non-Af 115, BUN/Creatinine Ratio 13.6, Glucose 109 H, Calcium 8.9, Total Bilirubin 1.00, AST 15, ALT 21, Alkaline Phosphatase 71, Total Protein 7.2, Albumin 3.6, Globulin 3.6, Albumin/Globulin Ratio 1.0 Micro: Microbiology 12/13/20 Unknown Tissue - Aerobic & Anaerobic Swabs Gram Stain - Final 12/13/20 Unknown Tissue - Aerobic & Anaerobic Swabs Wound Culture - Preliminary Escherichia coli 12/13/20 17:05 Mucosa - Nose SARS-CoV-2 Antigen (Rapid) - Final Assessment & Plan Assessment/Plan (1) Acute appendicitis: QUALIFIERS: Acute appendicitis type: with localized peritonitis Appendicitis gangrene presence: without gangrene Appendicitis perforation presence: without perforation Appendicitis abscess presence: without abscess Qualified Code(s): K35.30 - Acute appendicitis with localized peritonitis, without perforation or gangrene PLAN: Postoperative day #2 patient is ready to be discharged.
--- NOTE | 2020-12-15 13:38 | PCM.DC.SUM ---
Providers Date of Admission: 12/14/20 Primary Care Physician: Dr. Garry Moran MD Reason For Visit: ACUTE APPENDICITIS Diagnosis Discharge Diagnosis (1) Acute appendicitis: Status: Acute Code(s): K35.80 - Unspecified acute appendicitis Qualifiers: Acute appendicitis type: with localized peritonitis Appendicitis gangrene presence: without gangrene Appendicitis perforation presence: without perforation Appendicitis abscess presence: without abscess Qualified Code(s): K35.30 - Acute appendicitis with localized peritonitis, without perforation or gangrene Medications at Discharge Home Medications atenolol 50 mg PO DAILY 09/06/13 atorvastatin 10 mg PO DAILY 12/13/20 hydrochlorothiazide 12.5 mg PO DAILY 12/13/20 losartan 100 mg PO DAILY 12/13/20 oxycodone-acetaminophen [Endocet] 1 tab PO Q4H PRN 5 Days #20 tab 12/13/20 sertraline 100 mg PO DAILY 12/13/20 levofloxacin 500 mg PO DAILY #10 tab 12/15/20 Hospital Course Operations appendectomy Summary of Care Provided Hospital Course: This is a 65-year-old gentleman who presented to the hospital with acute appendicitis. Underwent a laparoscopic appendectomy appendix was very friable and was in the process of rupturing. He tolerated the procedure well cultures grew out E. coli which was sensitive to the antibiotics he was on he subsequently is going to be sent home on Levaquin 500 mg once daily. He will follow-up in 1 week with Flaquita Wilson. Weight / BMI Weight Weight: 200 lb Body Mass Index (BMI) 29.5 ABG / Lab / Microbiology Data Result Diagrams: 12/15/20 06:20 12/15/20 06:20 Laboratory: Laboratory Results - last 24 hr 12/15/20 06:20: WBC 12.8 H, RBC 4.65, Hgb 14.0, Hct 41.0, MCV 88.2, MCH 30.1, MCHC 34.1, RDW Std Deviation 43.8, RDW Coeff of Selin 13.6, Plt Count 177, MPV 9.5, Immature Gran % (Auto) 0.600, Neut % (Auto) 87.9 H, Lymph % (Auto) 6.5 L, [place] % (Auto) 4.6, Eos % (Auto) 0.2, Baso % (Auto) 0.2, Absolute Neuts (auto) 11.3 H, Absolute Lymphs (auto) 0.84, Nucleated RBC % 0 12/15/20 06:20: Sodium 138, Potassium 3.1 L, Chloride 103, Carbon Dioxide 30.0, Anion Gap 5, BUN 10, Creatinine 0.73, Estim Creat Clear Calc 103.57, Est GFR (MDRD) Af Amer 139, Est GFR (MDRD) Non-Af 115, BUN/Creatinine Ratio 13.6, Glucose 109 H, Calcium 8.9, Total Bilirubin 1.00, AST 15, ALT 21, Alkaline Phosphatase 71, Total Protein 7.2, Albumin 3.6, Globulin 3.6, Albumin/Globulin Ratio 1.0 Microbiology: Microbiology 12/13/20 Unknown Tissue - Aerobic & Anaerobic Swabs Gram Stain - Final 12/13/20 Unknown Tissue - Aerobic & Anaerobic Swabs Wound Culture - Preliminary Escherichia coli 12/13/20 17:05 Mucosa - Nose SARS-CoV-2 Antigen (Rapid) - Final D/C Instructions Discharge Diet: Light diet - advance as tolerated (if you have questions about your diet instructions, please talk to you doctor.) May shower in (days): 1 Call your doctor if your incision/area has: Continuous Slow Oozing, Sudden Increased Bleeding, Increased Pain/ Swelling, Increased Redness and Foul Smelling Discharge Call your doctor if you observe: Fever of 101 or Higher Suture Line Care: Avoid Pulling/Pushing and Avoid Pinching/Bending Additional Dressing/Incision Instructions: Keep dressing clean and dry. Change or remove dressing in 2 days. Leave steri strips for 1 week. May protect with a gauze bandaid. Please Follow Up With: Flaquita Mckeon PA-C When: Call office to schedule an appointment to be seen in 1 week. Meaningful Use Info Meaningful Use Diagnoses (Choose all that apply): None applicable Discharge Plan Admission Admit Date/Time: 12/14/20 11:40 Attending Provider: Pb Lacey Primary Care Provider: Garry Moran Instructions Patient Instructions: What Is Appendicitis?, Surgery for Appendicitis, Discharge Instructions for ... Discharge Orders/Prescriptions Prescriptions: New oxycodone-acetaminophen [Endocet] 5-325 mg tablet 1 tab PO Q4H PRN (Reason: pain) 5 Days Qty: 20 RF: 0 levofloxacin 500 mg tablet 500 mg PO DAILY Qty: 10 RF: 0 Continued atenolol 50 MG tablet 50 mg PO DAILY RF: 0 sertraline 100 mg tablet 100 mg PO DAILY RF: 0 hydrochlorothiazide 12.5 mg capsule 12.5 mg PO DAILY RF: 0 losartan 100 mg tablet 100 mg PO DAILY RF: 0 atorvastatin 10 mg tablet 10 mg PO DAILY RF: 0 Referrals / Follow Up: Garry Moran MD [Primary Care Provider] -
[2020-12-15 13:41] VITALS: BP 140/93; PULSE 93; RESP 18; TEMP 37; O2SAT 92
[2020-12-15] MEDS: levoFLOXacin IV 500 MG/100 ML BAG 100 MG IV (14:17)
--- NOTE | 2020-12-15 15:15 | PHA.DC.MC ---
Pharmacy Service has performed discharge medication reconciliation and counseling for this patient. 1. LEVOFLOXACIN 500MG PO DAILY X 10 DAYS 2. OXYCODONE/ACETAMINOPHEN 5/325MG 1T PO Q4H PRN PAIN The patient's discharge medication list was reviewed for discrepancies and discrepancies were resolved. Home Medications atenolol 50 mg PO DAILY 09/06/13 atorvastatin 10 mg PO DAILY 12/13/20 hydrochlorothiazide 12.5 mg PO DAILY 12/13/20 losartan 100 mg PO DAILY 12/13/20 oxycodone-acetaminophen [Endocet] 1 tab PO Q4H PRN 5 Days #20 tab 12/13/20 sertraline 100 mg PO DAILY 12/13/20 levofloxacin 500 mg PO DAILY #10 tab 12/15/20 The patient was counseled on the following discharge medications and changes in medications for homegoing were reviewed. The Reason for Use, instructions for use, and potential side effects were reviewed for all new medications. The patient's questions regarding all of their medications were answered. The patient was able to verbally demonstrate an understanding of their discharge medications.
[2020-12-15] MEDS: 0.9% Saline Lock 10 ML Syringe IV (15:28)
[2020-12-15] MEDS: Ondansetron 4 MG/2 ML Vial IV (15:29)
== END 2020-12-15 16:46 | disposition home or self-care (01) | DRG 343 ==
LOC: ED 17:05 → SDC 17:17 → MS3 19:54
PROVIDERS: Admitting Provider Surgery; Emergency Provider Emergency Medicine; PCP Internal Medicine; Visit Provider Surgery
PROC: 0DTJ4ZZ Resection of Appendix, Percutaneous Endoscopic Approach (ICD-10-PCS; CPT 44970; principal; 2020-12-13 18:30)
DX: K35.30 Acute appendicitis with localized peritonitis, without perforation or gangrene (principal); Z85.528 Personal history of other malignant neoplasm of kidney; I10 Essential (primary) hypertension; E78.00 Pure hypercholesterolemia, unspecified; Z79.899 Other long term (current) drug therapy; Z90.5 Acquired absence of kidney; R00.1 Bradycardia, unspecified
CPT/HCPCS: 36415; 74177; 80048; 80053; 81001; 85025; 87070; 87075; 87077; 87186; 87205; 87426; 88304; 93005; 94762; 99251; 99284; J7030; Q9967; A4216; C1760; G0463; J2405

== ENCOUNTER 2021-11-05 05:12 | Emergency (ER) | payer OTHER, SELFPAY ==
[2021-11-05 05:14] VITALS: BP 161/99; PULSE 85; RESP 14; TEMP 36.6; O2SAT 97; BMI 31.6
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
[2021-11-05] MEDS: Diphth,Pertuss(Acell),Tet Vac 0.5 ML Vial IM (06:33)
[2021-11-05 07:09] VITALS: BP 118/69; PULSE 72; RESP 16; O2SAT 97
== END 2021-11-05 07:10 | disposition home or self-care (01) ==
PROVIDERS: Emergency Provider Emergency Medicine; PCP Internal Medicine; Visit Provider Emergency Medicine
DX: S91.312A Laceration without foreign body, left foot, initial encounter (principal); T24.009A Burn of unspecified degree of unspecified site of unspecified lower limb, except ankle and foot, initial encounter; T20.00XA Burn of unspecified degree of head, face, and neck, unspecified site, initial encounter; Z23 Encounter for immunization; X58.XXXA Exposure to other specified factors, initial encounter
CPT/HCPCS: 12004; 90471; 90715; 99285

== ENCOUNTER 2023-01-05 11:12 | Emergency (ER) | payer OTHER, SELFPAY ==
[2023-01-05 11:12] VITALS: BP 163/97; PULSE 90; RESP 18; TEMP 36; O2SAT 100; BMI 31.3
--- NOTE | 2023-01-05 11:18 | EX.ED.UPPERE ---
HPI <DAKOTA Rebolledo - Last Filed: 01/05/23 11:46> History of Present Illness Chief Complaint: Laceration Narrative Narrative: 67-year-old male has a laceration on his left wrist from moving a fan just prior to arrival. Bleeding is controlled. He denies weakness numbness or tingling. He is right-hand dominant. States tetanus was updated 1 year ago. PFSH <DAKOTA Rebolledo - Last Filed: 01/05/23 11:46> [facility] Medical History Carpal tunnel syndrome on both sides Hypercholesterolemia Hypertension Renal cancer Home Medications atenolol 50 mg tablet 50 mg PO DAILY 09/06/13 [History Last Taken 12/13/20] atorvastatin 10 mg tablet 10 mg PO DAILY CHOLESTEROL 12/13/20 [History Last Taken 12/13/20] hydrochlorothiazide 12.5 mg capsule 12.5 mg PO DAILY FLUID 12/13/20 [History Last Taken 12/13/20] losartan 100 mg tablet 100 mg PO DAILY BP 12/13/20 [History Last Taken 12/13/20] sertraline 100 mg tablet 100 mg PO DAILY DEPRESSION 12/13/20 [History Last Taken 12/13/20] cephalexin 500 mg tablet 500 mg PO TID #30 tabs 04/22/22 [Rx Last Taken Unknown] Allergy/AdvReac Type Severity Reaction Status Date / Time No Known Allergies Allergy Verified 04/22/22 08:20 Surgical History H/O partial nephrectomy Social History Smoking Status: Never smoker substance use type: does not use ROS <DAKOTA Rebolledo - Last Filed: 01/05/23 11:46> ROS ED ROS Narrative Neuro: Negative for motor/sensory dysfunction. Skin: Positive for wound. Musc: Negative for joint pain, swelling. Heme: Negative for easy bruising, bleeding, lymphadenopathy. EXAM <DAKOTA Rebolledo - Last Filed: 01/05/23 11:46> Physical Exam Narrative Exam Narrative: CONST: Patient sitting in no acute distress. EYES: Normal inspection. NECK: Normal inspection. RESP: No respiratory distress, CTAB. CVS: Regular rate and rhythm, no murmur, no gallop. SKIN: 4 cm linear vertical laceration on the left mid volar wrist area extending onto the palm of the hand. No bleeding or foreign body. EXTREMITIES: Normal appearance, full range of motion of the left wrist and hand, normal motor and sensory function in median radial and ulnar distributions. 2+ radial pulse and brisk cap refill. NEURO: Oriented x4. PSYCH: Normal affect. Const Vital Signs: 01/05/23 11:12 Temperature 96.8 F L Temperature Source Temporal Pulse Rate 90 Respiratory Rate 18 Blood Pressure 163/97 H Blood Pressure Mean 119 Pulse Ox 100 Oxygen Delivery Method Room Air MDM <DAKOTA Rebolledo - Last Filed: 01/05/23 11:46> [facility] Narrative Medical decision making narrative: 4 cm left wrist laceration repaired. Neurovascularly intact. I discussed wound care and he was discharged in stable condition. I have personally performed a face to face assessment of the patient and have reviewed the LAMBERT Note. I performed a substantive portion of the visit including all aspects of the following. My lott findings include: 67-year-old male with left wrist and palm of hand laceration on a attic fan. Tetanus within the last year. He is right-hand dominant. Exam is [well-appearing male no acute distress. Vital signs stable afebrile. HEENT normal. Lungs clear. Heart regular rate and rhythm. There is a laceration of the skin and subcu tissue on the palmar aspect of the distal left wrist and proximal palm of the hand. It is 2 to 3 inches in length. Involves the skin and subcu tissue. There is dried blood but no active bleeding. No pulsatile bleeding. He has full flexion extension of the wrist and all digits of the hand. Normal touch sensation and cap refill. No foreign body.] Medical Decision Making [area will be cleaned with Shur-Clens. Washed. Irrigated. Explored. Closed using 4-0 Ethilon sutures.] Other additions or changes: [None] <Dr. Parish Kiran MD - Last Filed: 01/05/23 11:26> [facility] Narrative Medical decision making narrative: I have personally performed a face to face assessment of the patient and have reviewed the LAMBERT Note. I performed a substantive portion of the visit including all aspects of the following. My lott findings include: 67-year-old male with left wrist and palm of hand laceration on a attic fan. Tetanus within the last year. He is right-hand dominant. Exam is [well-appearing male no acute distress. Vital signs stable afebrile. HEENT normal. Lungs clear. Heart regular rate and rhythm. There is a laceration of the skin and subcu tissue on the palmar aspect of the distal left wrist and proximal palm of the hand. It is 2 to 3 inches in length. Involves the skin and subcu tissue. There is dried blood but no active bleeding. No pulsatile bleeding. He has full flexion extension of the wrist and all digits of the hand. Normal touch sensation and cap refill. No foreign body.] Medical Decision Making [area will be cleaned with Shur-Clens. Washed. Irrigated. Explored. Closed using 4-0 Ethilon sutures.] Other additions or changes: [None] Procedures <DAKOTA Rebolledo - Last Filed: 01/05/23 11:46> Lacerations left wrist: Length: 4 cm Depth: Sub Q Shape: Linear Prep: Sterile Conditions and Shure-Clens Laceration repair: Irrigated, Lidocaine, Skin sutures and Wound explored Irrigated (ml): 250 Number of Sutures/[place]: 6 Suture Information: Ethilon and 4-0 Discharge Plan Triage Chief Complaint: Laceration ED Midlevel Provider: Karen Mackay ED Provider: Parish Kiran Dx/Rx/DC Orders Clinical Impression: Laceration of left upper extremity Instructions: ED Laceration Extremity Prescriptions: No Action cephalexin 500 mg tablet 500 mg PO TID Qty: 30 0RF atenolol 50 MG tablet 50 mg PO DAILY sertraline 100 mg tablet 100 mg PO DAILY hydrochlorothiazide 12.5 mg capsule 12.5 mg PO DAILY losartan 100 mg tablet 100 mg PO DAILY atorvastatin 10 mg tablet 10 mg PO DAILY Primary Care Provider: Garry Moran Referrals: Garry Moran MD [Primary Care Provider] - Activity Restrictions/Additional Instructions: Keep area clean. You can shower as normal and then gently pat dry. Sutures need removed in 10 to 14 days. Please seek reevaluation sooner if you develop any signs of infection like redness, swelling, increased pain or pus. Disposition Disposition: Home, Self Care
== END 2023-01-05 11:52 | disposition home or self-care (01) ==
PROVIDERS: Emergency Provider Emergency Medicine; PCP Internal Medicine; Visit Provider Emergency Medicine
DX: S61.512A Laceration without foreign body of left wrist, initial encounter (principal); X58.XXXA Exposure to other specified factors, initial encounter
CPT/HCPCS: 12002; 99284

== ENCOUNTER 2023-09-13 01:27 | Inpatient (IN) | payer OTHER, MEDICARE, SELFPAY ==
[2023-09-13] VITALS (42 sets, daily range): BP systolic 82–154; BP diastolic 49–107; PULSE 76–136; RESP 14–48; TEMP 36.6–40.8; O2SAT 86–899; BMI 31.9; BMI 31.8
--- NOTE | 2023-09-13 01:34 | CT_ITS ---
STUDY: CT ABDOMEN AND PELVIS WITH CONTRAST REASON FOR EXAM: Male, 67 years old. abd pain RADIATION DOSAGE (If Supplied By Facility): CTDIvol = ( 20.30 ) mGy, DLP = ( 2686.48 ) mGycm TECHNIQUE: IV 100mL Isovue-370 was administered. Transaxial images were obtained from the dome of the diaphragm to the symphysis pubis in the portal venous phase. Multiplanar coronal and sagittal images were reformatted. Individualized Dose Optimization Techniques Were Used For This CT. COMPARISON: No relevant prior comparison study available FINDINGS: LOWER CHEST: Lung bases are clear. No cardiomegaly or pericardial effusion. LIVER: The liver is normal in size, shape, and attenuation. No focal mass. GALLBLADDER AND BILIARY TREE: The gallbladder is normally distended. No gallstones. No gallbladder wall thickening or edema. No pericholecystic fluid. No intra- or extrahepatic biliary ductal dilation. PANCREAS: No focal cystic or solid mass. SPLEEN: Normal size without focal cystic or solid mass. ADRENAL GLANDS: No nodules. KIDNEYS AND URETERS: Normal renal size and position. No hydronephrosis or nephrolithiasis. PERITONEUM: No ascites or free air. No other fluid collection. BOWEL: The stomach is unremarkable. Normal caliber small bowel. There is no obstruction. No colonic wall thickening or inflammation. No free air or free fluid. No evidence of acute appendicitis. LYMPH NODES: No enlarged mesenteric or retroperitoneal lymph nodes. VESSELS: Aorta is non-dilated. URINARY BLADDER: Decompressed by Gonzales catheter. REPRODUCTIVE ORGANS: No pelvic masses. ABDOMINAL WALL: No discrete abdominal or pelvic wall hernia. BONES: No lytic or blastic abnormality. CT/Abdomen/Pelvis W IV Cont ONLY IMPRESSION: No acute findings to explain the patient''s symptomatology. Electronically Signed: Tim Gant MD at 4:05 EDT ,
--- NOTE | 2023-09-13 01:34 | CT_ITS ---
INDICATION: altered mental EXAMINATION: CT BRAIN - CT Head or Brain W/O Contrast Injection TECHNIQUE: Multiple axial images were obtained of the head without intravenous contrast. A radiation dose optimization technique was used for this scan. IV Contrast dosage and agent: None. RADIATION DOSAGE (If Supplied By Facility): CTDIvol = ( 44.99 ) mGy, DLP = ( 846.73 ) mGycm COMPARISON: FINDINGS: BRAIN PARENCHYMA: No intra- or extra-axial hemorrhage. No evidence of acute infarct. No intracranial mass or mass effect. There is preservation of the rivera/white matter interface. Posterior fossa structures are unremarkable. No parenchymal abnormality. CSF SPACES: No cerebral volume loss. No hydrocephalus. Basal cisterns are patent. CALVARIUM, SKULL BASE, PARANASAL SINUSES AND MASTOID AIR CELLS: Regional soft tissues and scalp unremarkable. Calvarium and skull base are intact. Paranasal sinuses are clear. Mastoid air cells are clear. No discrete lytic or blastic abnormalities. ORBITS: Both globes, extraocular muscles, optic nerves and retrobulbar fat appear unremarkable. CT/Brain/Head without Contrast IMPRESSION: No acute intracranial finding. Electronically Signed: Tim Gant MD at 3:44 EDT ,
--- NOTE | 2023-09-13 01:34 | EKG12_ITS ---
Test Reason : A-FIB Blood Pressure : / mmHG Vent. Rate : 139 BPM Atrial Rate : 000 BPM P-R Int : 000 ms QRS Dur : 082 ms QT Int : 310 ms P-R-T Axes : 000 -10 -50 degrees QTc Int : 471 ms Atrial fibrillation with rapid ventricular response Low voltage QRS Inferior infarct , age undetermined Cannot rule out Anterior infarct , age undetermined Abnormal ECG No previous ECGs available Confirmed by DOMINIQUE CR, AIMEE ([id number]), newspaper or periodical editor GABRIELLE ROGEL ([id number]) on 09/20/2023 11:44:13 AM Referred By: RUIZ Confirmed By:AIMEE FOX MD
--- NOTE | 2023-09-13 01:34 | RAD_ITS ---
INDICATION: cough EXAMINATION/TECHNIQUE: X-RAY - XR Chest 1 View COMPARISON: No relevant prior comparison study available FINDINGS: LINES/DEVICES: None. LUNGS: The lungs are well expanded. No consolidation, edema or effusion. No pneumothorax. MEDIASTINUM AND CARDIOVASCULAR STRUCTURES: Cardiac silhouette not enlarged. Central airways and mediastinal contour are unremarkable. BONES AND SOFT TISSUES: No acute osseous abnormalities. RAD/Chest 1 View (Portable) IMPRESSION: No acute pulmonary finding. Electronically Signed: Tim Gant MD at 3:39 EDT ,
[2023-09-13] MEDS: Acetaminophen 650 MG Suppository RC (01:49)
[2023-09-13] MEDS: 0.9% Normal Saline (1000mL) 1,000 ML 999 ML IV ×3 (01:49→03:03)
[2023-09-13 01:50] LABS: Absolute Lymphocyte Count 0.81 X10^3/uL (0.83-4.51); Absolute Neutrophil Count 0.8 X10^3/uL (2.0-7.7); Basophil# 0.01 X10^3/uL; Basophil% 0.6 % (0-1); Hematocrit 45.6 % (40-54); Hemoglobin 15.4 g/dL (13.0-16.5); Lymphocyte # 0.81 X10^3/ul (0.83-4.51); Lymphocyte % 47.1 % (19-41); Mean Corp Hgb Conc 33.8 g/dL (32-36); Mean Corpuscular Hgb 29.3 pg (27.0-32.0); Mean Corpuscular Volume 86.7 fL (80-94); Mean Platelet Vol. 9.7 fl (6.2-12.0); Monocyte# 0.03 X10^3/uL; Monocyte% 1.7 % (0-10); NRBC Flagged by Analyzer 0 % (0-5); Neutrophil # 0.83 X10^3/uL (2.7-7.7); Neutrophil % 48.3 % (47-70); POSITIVE DIFFERENTIAL YES; Platelet Count 185 K/mm3 (150-450); RBC Distribution Width CV 13.5 % (11.6-14.6); RBC Distribution Width SD 42.9 fl (35.1-43.9); Red Blood Count 5.26 M/mm3 (4.6-6.2); White Blood Count 1.7 K/mm3 (4.4-11.0)
[2023-09-13 01:53] LABS: Differential Indicated SCAN CRITERIA MET
[2023-09-13 02:02] LABS: International Normalized Ratio 1.2
[2023-09-13 02:03] LABS: Partial Thromboplast Time 24.1 Seconds (24.1-36.2)
[2023-09-13 02:08] LABS: Color, Urine Yellow (Yellow); Glucose, Dipstick Normal (Normal); Ketone-Dipstick 5 mg/dl (Negative); Leukocyte Esterase-Dipstick 500 /ul (Negative); Nitrite-Dipstick Positive (Negative); Occult Blood-Urine 250 /ul (Negative); Protein-Dipstick 100 mg/dl (Negative); Specific Gravity, Urine 1.015 (1.002-1.030); Urine Bilirubin Dipstick Negative (Negative); Urine Clarity Sl. Cloudy (Clear); Urine Urobilinogen Normal (Normal)
[2023-09-13] MEDS: Piperacil/Tazobactam 3.375 GM in 0.9% Normal Saline (50mL MB+) 50 ML IV ×3 (02:13→22:48)
[2023-09-13 02:16] LABS: Procalcitonin 1.77 ng/mL (0.00-0.09)
[2023-09-13 02:17] LABS: AST(SGOT) 31 U/L (15-37); Alanine Aminotransfer ALT/SGPT 45 U/L (16-61); Alkaline Phosphatase 87 U/L (45-117); Anion Gap 13 (5-15); BUN 22 mg/dL (7-18); BUN/Creat Ratio 15.3 RATIO (10-20); Bilirubin, Direct 0.43 mg/dL (0.00-0.30); Calcium,Total 9.7 mg/dL (8.5-10.1); Chloride 102 mmol/L (98-107); Creatinine, Serum 1.44 mg/dL (0.70-1.30); EST Glomerular Filtration Rate 52 mL/min (>60); Est Glom Filt Rate - Afr Amer 63 mL/min (>60); Estimated Creatinine Clearance 59.07 ml/min; Globulin 3.7 g/dL (2.2-4.2); Glucose 118 mg/dL (74-106); Magnesium 1.4 mg/dL (1.6-2.6); Potassium 3.8 mmol/L (3.5-5.1); Protein, Total 7.7 g/dL (6.4-8.2); Sodium Level 137 mmol/L (136-145); Thyroid Stim Hormone (TSH) 0.51 uIU/mL (0.358-3.74)
[2023-09-13] MEDS: Vancomycin HCl 1,500 MG in 0.9% Normal Saline (500mL Bag) 500 ML 250 MG IV (02:21)
[2023-09-13] MEDS: Ondansetron 4 MG/2 ML Vial IV (02:22)
[2023-09-13 02:26] LABS: Lactic Acid 6.3 mmol/L (0.4-1.9)
[2023-09-13 02:28] LABS: Bacteria 3+ /hpf (None Seen); Red Blood Cells-Urine 25-50 SEEN /hpf (0-5); Squamous Epithelial Cells - UA 5-10 SEEN /hpf (0-5); White Blood Cells 50-100 SEEN /hpf (0-5)
[2023-09-13 02:29] LABS: Mucous, Urine RARE /hpf (<or=2+)
[2023-09-13 02:57] LABS: Differential Comment SCANNED
--- NOTE | 2023-09-13 04:24 | HP.PCM.HOS_ITS ---
HPI - General General Date of Admission: 09/13/23 Date of Service: 09/13/23 Chief Complaint: Fevers and chills, confusion HPI Narrative RICARDO MERCADO, is a 67 M who presented to [facility] ED via EMS on 09/13/2023 with worsening fevers and chills and confusion. Patient seen at bedside in the ED, present. Patient was sitting up in bed and making eye contact with me, but he appeared confused and was not answering any questions appropriately for me. He was not able to tell me where he was. He did have fairly shallow breaths and was breathing around 30-40 times per minute, however he did not look like he was working hard to breathe by any means. He only had underwear on and had no blankets over him because he was feeling very warm. provided patient's history. Patient has a history of prostate cancer, had radical prostatectomy done at [facility] about 7 weeks ago. She states that he tolerated the procedure well. He did have a UTI about 2 weeks after the procedure that was treated with outpatient antibiotics and improved. noted that he began to have some chills yesterday evening and then he fairly quickly became encephalopathic that prompted her to call EMS to bring him in. On arrival to the ED, patient was found to have a rectal temp of 105F. Heart rate was in the 120s and 130s, BP was normal, respiration rate was elevated in the 30s to 40s with oxygen saturations in the 90 to 95% range on 3 to 4 L nasal cannula. CBC showed a WBC count of 1.7 that was lymphocytic predominant. UA f indings were consistent with infection. Lactate was 6.3. CT abdomen pelvis with contrast, CT brain without contrast and chest x-ray all showed no significant findings. Patient was given doses of vancomycin and Zosyn as well as 1 L of normal saline, and patient was admitted for further management. [facility] Medical History Carpal tunnel syndrome on both sides Cellulitis of left hand Hypercholesterolemia Hypertension Laceration of left hand Renal cancer Home Medications atenolol 50 mg tablet 50 mg PO DAILY 09/06/13 [History Last Taken 12/13/20] atorvastatin 10 mg tablet 10 mg PO DAILY CHOLESTEROL 12/13/20 [History Last Taken 12/13/20] hydrochlorothiazide 12.5 mg capsule 12.5 mg PO DAILY FLUID 12/13/20 [History Last Taken 12/13/20] losartan 100 mg tablet 100 mg PO DAILY BP 12/13/20 [History Last Taken 12/13/20] sertraline 100 mg tablet 100 mg PO DAILY DEPRESSION 12/13/20 [History Last Taken 12/13/20] Allergy/AdvReac Type Severity Reaction Status Date / Time No Known Allergies Allergy Verified 09/13/23 01:28 Surgical History H/O partial nephrectomy Social History Smoking Status: Never smoker substance use type: does not use ROS Review of Systems ROS Unobtainable: due to encephalopathy Vital Signs Vital Signs Vital Signs: 09/13/23 01:29 09/13/23 01:27 09/13/23 01:50 Temperature 99.1 F 99.1 F 105.4 F H Temperature Source Axillary Axillary Rectal Pulse Rate 132 H 132 H 136 H Respiratory Rate 38 H 21 H 35 H Blood Pressure 132/103 H 132/103 H 129/67 H Blood Pressure Mean 112 112 87 Pulse Ox 86 91 92 Oxygen Delivery Method Room Air Nasal Cannula Nasal Cannula Oxygen Flow Rate (L/min) 2 4 09/13/23 02:27 09/13/23 02:35 09/13/23 03:00 Temperature 101.5 F H 99.1 F Temperature Source Oral Oral Pulse Rate 130 H 131 H 120 H Respiratory Rate 48 H 44 H 22 H Blood Pressure 154/88 H 122/81 H 121/71 H Blood Pressure Mean 110 94 87 Pulse Ox 93 93 97 Oxygen Delivery Method Nasal Cannula Nasal Cannula Nasal Cannula Oxygen Flow Rate (L/min) 4 4 09/13/23 03:00 09/13/23 04:00 09/13/23 04:00 Temperature 97.9 F 97.9 F Temperature Source Oral Oral Pulse Rate 120 H 120 H 120 H Respiratory Rate 22 H 20 H 20 H Blood Pressure 121/71 H 130/83 H 130/83 H Blood Pressure Mean 87 98 98 Pulse Ox 97 95 95 Oxygen Delivery Method Nasal Cannula Nasal Cannula Nasal Cannula Oxygen Flow Rate (L/min) 4 4 09/13/23 04:09 Temperature 97.9 F Temperature Source Temporal Pulse Rate 119 H Respiratory Rate 20 H Blood Pressure 130/83 H Blood Pressure Mean 98 Pulse Ox 95 Oxygen Delivery Method Nasal Cannula Oxygen Flow Rate (L/min) 4 Weight Weight: 98.1 kg Body Mass Index (BMI) 31.9 Physical Exam Const alert and no apparent distress Constitutional Narrative: Elderly male, obese, sitting up fairly comfortably in bed, making eye contact but appears confused and is not answering any questions appropriately, otherwise in no acute distress. General Appearance: cooperative and comfortable HEENT normocephalic, head/scalp atraumatic, hearing grossly normal bilaterally and nasal mucous membranes and turbinates normal HEENT Narrative: Dry mucous membranes. Eyes PERRL, EOMs intact bilaterally and conjunctivae normal Neck full ROM Chest inspection of chest normal Resp normal respiratory effort, normal air movement, no use of accessory muscles and clear to auscultation bilaterally Cardio regular rate, regular rhythm, no murmurs and peripheral pulses 2+ throughout GI normal to inspection, nondistended, normoactive bowel sounds, soft to palpation, non-tender and non-distended Back/Spine normal ROM Extremity normal to inspection, full ROM and no pedal edema Skin no rashes or lesions noted Neuro moves all extremities and no focal motor deficits Results Lab / Micro Data 09/13/23 01:30 09/13/23 01:30 Labs: Laboratory Results - last 24 hr 09/13/23 01:30: WBC 1.7 L, RBC 5.26, Hgb 15.4, Hct 45.6, MCV 86.7, MCH 29.3, MCHC 33.8, RDW Std Deviation 42.9, RDW Coeff of Selin 13.5, Plt Count 185, MPV 9.7, Immature Gran % (Auto) 2.300 H, Neut % (Auto) 48.3, Lymph % (Auto) 47.1 H, [place] % (Auto) 1.7, Eos % (Auto) 0.0, Baso % (Auto) 0.6, Absolute Neuts (auto) 0.8 L, Absolute Lymphs (auto) 0.81 L, Nucleated RBC % 0, Differential Comment SCANNED, PT 15.0 H, INR 1.2, APTT 24.1, Sodium 137, Potassium 3.8, Chloride 102, Carbon Dioxide 22.0, Anion Gap 13, BUN 22 H, Creatinine 1.44 H, Estim Creat Clear Calc 59.07, Est GFR (MDRD) Af Amer 63, Est GFR (MDRD) Non-Af 52 L, BUN/Creatinine Ratio 15.3, Glucose 118 H, Lactic Acid 6.3 H*, Calcium 9.7, Magnesium 1.4 L, Total Bilirubin 1.60 H, Direct Bilirubin 0.43 H, AST 31, ALT 45, Alkaline Phosphatase 87, Ammonia 11.0, Total Protein 7.7, Albumin 4.0, Globulin 3.7, Procalcitonin 1.77 H, TSH 0.51 09/13/23 02:00: Urine Color Yellow, Urine Clarity Sl. Cloudy, Urine pH 6.0, Ur Specific [place] 1.015, Urine Protein 100 H, Urine Glucose (UA) Normal, Urine Ketones 5 H, Urine Occult Blood 250 H, Urine Nitrite Positive H, Urine Bilirubin Negative, Urine Urobilinogen Normal, Ur Leukocyte Esterase 500 H, Urine RBC 25- 50 SEEN, Urine WBC 50-100 SEEN, Ur Squamous Epith Cells 5-10 SEEN, Urine Bacteria 3+, Urine Mucus RARE Micro: Microbiology 09/13/23 01:58 Mucosa - Nose SARS-CoV-2, Influenza & RSV (PCR) - Final Imaging Radiology Impression Abdomen/Pelvis CT 09/13/23 01:34 IMPRESSION: No acute findings to explain the patient''s symptomatology. Electronically Signed: Tim Gant MD at 4:05 EDT , Brain CT 09/13/23 01:34 IMPRESSION: No acute intracranial finding. Electronically Signed: Tim Gant MD at 3:44 EDT , Chest X-Ray 09/13/23 01:34 IMPRESSION: No acute pulmonary finding. Electronically Signed: Tim Gant MD at 3:39 EDT , Assessment & Plan Assessment/Plan (1) Sepsis: (2) Urinary tract infection: PLAN: Plan Patient is a 67-year-old male who presented [facility] ED on 09/12/2024 for with fevers/chills and confusion. 1. Sepsis without shock presumed secondary to UTI ? Admit under inpatient status to PCU. Presented with severe fever, suspected urinary source with dirty UA, elevated lactic acid, acute renal dysfunction and acute encephalopathy; thus, met sepsis criteria on admission. UA showed 500 leukocyte esterase, positive nitrites, 3+ bacteria. CT abdomen pelvis with contrast showed bladder was decompressed by Gonzales catheter, normal-sized kidneys and ureters. Will treat with IV Zosyn for now. Was given 1 L of IV fluids in the ED, will give another 1 L over the next 8 hours. 2. Acute toxic encephalopathy ? Patient has remained alert during hospitalization but was not able to answer any questions appropriately for me on day of admission. CT brain without contrast on admit was nonacute. Treatment as above. 3. Leukopenia ? WBC count 1.7 on admit. Suspect due to sepsis as above. No previous history of leukopenia reported in the chart for him. COVID/flu/RSV negative. Blood cultures, urine culture pending. Trend daily CBC. Treated with IV antibiotics as noted above. 4. JUSTIN ? Creatinine 1.44 on admit, baseline appears to be around 0.7-0.9. Seems most likely prerenal in setting from recent poor p.o. intake. Given IV fluids as noted above. Follow-up a.m. BMP. 5. Elevated lactic acid ? Lactate 6.3 on admit. No anion gap noted. Very likely secondary to dehydration. Given IV fluids as noted above. Follow-up repeat lactate. 6. Recent history of prostate cancer s/p radical prostatectomy, history of BPH with obstructive symptoms ? Per , patient had procedure done over at [facility] about 7 weeks ago. Did have 1 small UTI about 2 weeks after the procedure that was treated with oral antibiotics and patient did fine. Outpatient follow-up as needed. Chronic medical conditions: ? Obesity: BMI 31 on admit. Complicates hospital course, care and prognosis. ? Hypertension: Holding home atenolol, losartan and hydrochlorothiazide given normotensive to borderline hypotensive on admit. ? Hyperlipidemia: Continue home statin. ? Mood disorder: Continue home sertraline. DVT prophylaxis: Lovenox CODE STATUS: Full code, verified Expected disposition: TBD Total clinical time spent by myself addressing the patient's medical issues, reviewing all the data, and collaborating with patient's care team: 55 minutes. Charges/Coding Visit Charges Inpatient E&M: 44876 Init Hosp L2
--- NOTE | 2023-09-13 04:24 | EDS_ITS ---
HPI History of Present Illness Chief Complaint: Confusion Informant: spouse/S.O. and EMS Narrative Narrative: Patient is a 67-year-old male with past medical history of renal cancer and prostate cancer as well as hypertension. He underwent a radical prostatectomy roughly 7 weeks ago. According to he has been doing well but that today he had a bout of vomiting and later in the day began with subjective fevers and chills. She states this evening/expert witness his mental status worsened and he reported increasing pain and secondary to this EMS was called to bring him in for evaluation [facility] Medical History Carpal tunnel syndrome on both sides Cellulitis of left hand Hypercholesterolemia Hypertension Laceration of left hand Renal cancer Home Medications atenolol 50 mg tablet 50 mg PO DAILY 09/06/13 [History Last Taken 12/13/20] atorvastatin 10 mg tablet 10 mg PO DAILY CHOLESTEROL 12/13/20 [History Last Taken 12/13/20] hydrochlorothiazide 12.5 mg capsule 12.5 mg PO DAILY FLUID 12/13/20 [History Last Taken 12/13/20] losartan 100 mg tablet 100 mg PO DAILY BP 12/13/20 [History Last Taken 12/13/20] sertraline 100 mg tablet 100 mg PO DAILY DEPRESSION 12/13/20 [History Last Taken 12/13/20] Allergy/AdvReac Type Severity Reaction Status Date / Time No Known Allergies Allergy Verified 09/13/23 01:28 Surgical History H/O partial nephrectomy Social History Smoking Status: Never smoker substance use type: does not use ROS ROS ED Constitutional Constitutional ED: Reports chills and fever(s) ENT ENT ED: Denies rhinorrhea or sore throat Cardiovascular Cardiovascular: Reports racing heartbeat; Denies chest pain Respiratory/Chest Respiratory/Chest: Reports cough; Denies dyspnea Gastrointestinal Gastrointestinal: Reports nausea and vomiting; Denies abdominal pain Genitourinary Genitourinary ED: Reports urinary frequency Musculoskeletal Musculoskeletal: Reports myalgias Integumentary Denies rash Neurologic Neurologic: Reports headache(s) EXAM Physical Exam Const Vital Signs: 09/13/23 01:29 09/13/23 01:27 09/13/23 01:50 Temperature 99.1 F 99.1 F 105.4 F H Temperature Source Axillary Axillary Rectal Pulse Rate 132 H 132 H 136 H Respiratory Rate 38 H 21 H 35 H Blood Pressure 132/103 H 132/103 H 129/67 H Blood Pressure Mean 112 112 87 Pulse Ox 86 91 92 Oxygen Delivery Method Room Air Nasal Cannula Nasal Cannula Oxygen Flow Rate (L/min) 2 4 09/13/23 02:27 09/13/23 02:35 09/13/23 03:00 Temperature 101.5 F H 99.1 F Temperature Source Oral Oral Pulse Rate 130 H 131 H 120 H Respiratory Rate 48 H 44 H 22 H Blood Pressure 154/88 H 122/81 H 121/71 H Blood Pressure Mean 110 94 87 Pulse Ox 93 93 97 Oxygen Delivery Method Nasal Cannula Nasal Cannula Nasal Cannula Oxygen Flow Rate (L/min) 4 4 09/13/23 03:00 09/13/23 04:00 09/13/23 04:00 Temperature 97.9 F 97.9 F Temperature Source Oral Oral Pulse Rate 120 H 120 H 120 H Respiratory Rate 22 H 20 H 20 H Blood Pressure 121/71 H 130/83 H 130/83 H Blood Pressure Mean 87 98 98 Pulse Ox 97 95 95 Oxygen Delivery Method Nasal Cannula Nasal Cannula Nasal Cannula Oxygen Flow Rate (L/min) 4 4 09/13/23 04:09 Temperature 97.9 F Temperature Source Temporal Pulse Rate 119 H Respiratory Rate 20 H Blood Pressure 130/83 H Blood Pressure Mean 98 Pulse Ox 95 Oxygen Delivery Method Nasal Cannula Oxygen Flow Rate (L/min) 4 Positive well nourished and well developed General Appearance ED: well developed; Negative for pallor HEENT Reports dry mucous membranes HEENT Narrative: No signs of infection movement posterior pharynx No airway edema or compromise Mouth ED: Yes dry mucous membranes Mouth: dry mucous membranes Eyes PERRL and EOMs intact bilaterally General Eye ED: Negative for scleral icterus Neck supple and no JVD Neck Narrative: No nuchal rigidity or meningeal signs noted Chest Wall palpation of chest normal Chest Narrative: No bony deformity or crepitance Resp clear to auscultation bilaterally Resp Narrative: Patient is tachypneic and breath sounds are diminished throughout but overall clear to auscultation Cardio regular rhythm Rate: tachycardic and other Other Details: Tachycardic rate with regular rhythm GI normal to inspection, nondistended, normoactive bowel sounds, non-tender, non- distended and no masses GI Narrative: Abdomen is soft nontender and nondistended with normal active bowel sounds. No voluntary guarding or rigidity or pulsatile mass Postsurgical changes are noted that are clean dry and intact without secondary findings to suggest infection Auscultation: normoactive bowel sounds Palpation: soft Extremity normal to inspection Extremity Narrative: No asymmetric edema no pitting edema negative Homans' sign bilaterally Neuro CN's II-XII intact bilaterally Neuro Narrative: Patient is obtunded with GCS of 13. No focal neurologic deficit noted Sensorium / Orientation: orientation impaired Skin no rashes or lesions noted Skin Narrative: Postsurgical changes are noted to his abdomen that are clean dry and intact without secondary changes to suggest infection General Skin Exam: Negative for jaundice or pallor MDM MDM MDM Narrative Medical decision making narrative: Patient arrived to the ER tachycardic tachypneic and hypertensive with this his mental status was diminished and according to the there was concern for infection/sepsis. The patient's GCS upon arrival was 13 but he is protecting his airway and therefore there is no need for emergent intubation. Differential diagnosis is for pneumonia versus COVID versus influenza versus RSV versus UTI versus acute kidney injury versus postsurgical infection. Secondary to concern for sepsis from secondary infection patient was started on vancomycin and Zosyn and given 30 mL/kg fluid bolus. Tylenol was given secondary to the fever. Blood cultures and urine cultures were also obtained. The patient's workup shows a decreased white blood cell count and neutropenia consistent with severe infection. Patient's procalcitonin value was also elevated consistent with infection. Otherwise there is no clinically significant laboratory findings other than the urine sample showing changes consistent with infection. After the patient's temperature improved and he was hydrated his mental status came to baseline. At this time he is still tachycardic but he has improved from initial arrival and his blood pressure is normalized. Therefore there is no need for vasopressors. Patient will be admitted to the hospital for further care of his infection but as he is not requiring intubation and vasopressors and has had improvement of mental status with control of his fever and do not feel there is need for ICU placement and he will be admitted to the stepdown floor History & Record Review Discussion w/independent historian: Patient and Family Lab Data Attestation: I reviewed the patient's lab results. Labs: Laboratory Results - last 24 hr 09/13/23 09/13/23 01:30 02:00 WBC 1.7 L RBC 5.26 Hgb 15.4 Hct 45.6 MCV 86.7 MCH 29.3 MCHC 33.8 RDW Std Deviation 42.9 RDW Coeff of Selin 13.5 Plt Count 185 MPV 9.7 Immature Gran % (Auto) 2.300 H Neut % (Auto) 48.3 Lymph % (Auto) 47.1 H [place] % (Auto) 1.7 Eos % (Auto) 0.0 Baso % (Auto) 0.6 Absolute Neuts (auto) 0.8 L Absolute Lymphs (auto) 0.81 L Nucleated RBC % 0 Differential Comment SCANNED PT 15.0 H INR 1.2 APTT 24.1 Sodium 137 Potassium 3.8 Chloride 102 Carbon Dioxide 22.0 Anion Gap 13 BUN 22 H Creatinine 1.44 H Estim Creat Clear Calc 59.07 Est GFR (MDRD) Af Amer 63 Est GFR (MDRD) Non-Af 52 L BUN/Creatinine Ratio 15.3 Glucose 118 H Lactic Acid 6.3 H* Calcium 9.7 Magnesium 1.4 L Total Bilirubin 1.60 H Direct Bilirubin 0.43 H AST 31 ALT 45 Alkaline Phosphatase 87 Ammonia 11.0 Total Protein 7.7 Albumin 4.0 Globulin 3.7 Procalcitonin 1.77 H TSH 0.51 Urine Color Yellow Urine Clarity Sl. Cloudy Urine pH 6.0 Ur Specific [place] 1.015 Urine Protein 100 H Urine Glucose (UA) Normal Urine Ketones 5 H Urine Occult Blood 250 H Urine Nitrite Positive H Urine Bilirubin Negative Urine Urobilinogen Normal Ur Leukocyte Esterase 500 H Urine RBC 25-50 SEEN Urine WBC 50-100 SEEN Ur Squamous Epith Cells 5-10 SEEN Urine Bacteria 3+ Urine Mucus RARE Radiography Diagnostic Testing: Clinical Impression(s) from Imaging Studies Abdomen/Pelvis CT 09/13/23 01:34 IMPRESSION: No acute findings to explain the patient''s symptomatology. Electronically Signed: Tim Gant MD at 4:05 EDT , Brain CT 09/13/23 01:34 IMPRESSION: No acute intracranial finding. Electronically Signed: Tim Gant MD at 3:44 EDT , Chest X-Ray 09/13/23 01:34 IMPRESSION: No acute pulmonary finding. Electronically Signed: Tim Gant MD at 3:39 EDT , Chest x-ray as interpreted by the emergency medicine physician reveals no acute infiltrate pneumothorax or pleural effusion Management Discussion w/another healthcare provider: Hospitalist Discharge Plan Triage Chief Complaint: Confusion ED Provider: Jovany Zaidi Dx/Rx/DC Orders Clinical Impression: Urinary tract infection, Pyrexia, Hyperlipidemia, Sepsis, Hypertension Prescriptions: No Action atenolol 50 MG tablet 50 mg PO DAILY sertraline 100 mg tablet 100 mg PO DAILY hydrochlorothiazide 12.5 mg capsule 12.5 mg PO DAILY losartan 100 mg tablet 100 mg PO DAILY atorvastatin 10 mg tablet 10 mg PO DAILY Primary Care Provider: Garry Moran Referrals: Garry Moran MD [Primary Care Provider] - Disposition Disposition: Acute Care [facility]
--- NOTE | 2023-09-13 05:14 | EKG12_ITS ---
Test Reason : DYSRHYTHMIA Blood Pressure : / mmHG Vent. Rate : 123 BPM Atrial Rate : 123 BPM P-R Int : 180 ms QRS Dur : 082 ms QT Int : 346 ms P-R-T Axes : 038 -19 033 degrees QTc Int : 495 ms Sinus tachycardia Minimal voltage criteria for LVH, may be normal variant ( R in aVL ) Inferior infarct , age undetermined Abnormal ECG Confirmed by RANJIT CR, TOLU ([id number]), material expeditor MARKUS TRUONG ([id number]) on 09/17/2023 10:09:51 AM Referred By: AM Confirmed By:MIKKI CHURCH MD
[2023-09-13 05:41] LABS: Reflex Lactate? Y
[2023-09-13] MEDS: Acetaminophen 325 MG Tablet 650 MG PO ×3 (06:09→19:41)
[2023-09-13] MEDS: Lactated Ringers 1,000 ML 125 ML IV (06:12)
--- NOTE | 2023-09-13 07:15 | RAD_ITS ---
STUDY: X-RAY CHEST REASON FOR EXAM: Male, 67 years old. Worsening hypoxia TECHNIQUE: Single AP portable view of the chest. COMPARISON: Comparison is made with prior study done earlier in the day. FINDINGS: EKG electrodes are seen. Mild degree of vascular congestion. Increased markings at the left lung base suggestive of left basilar atelectasis with blunting of the left costo phrenic angle. There is borderline cardiomegaly. Normal mediastinum and milka. Normal visualized pulmonary arteries. There is atherosclerotic tortuosity of the aortic arch and descending thoracic aorta. There are diffuse degenerative changes of the visualized thoracic spine. Normal visualized ribs, clavicles, and shoulders. There is no demonstrated abnormality of the visualized soft tissue structures of the upper abdomen. RAD/Chest 1 View (Portable) IMPRESSION: Mild degree of vascular congestion with increased markings at the left lung base suggestive of linear atelectasis with blunting of the left costophrenic angle. Borderline cardiomegaly. Electronically Signed: Phil Parisi MD at 8:32 EDT ,
[2023-09-13 07:21] LABS: Absolute Lymphocyte Count 0.27 X10^3/uL (0.83-4.51); Absolute Neutrophil Count 3.9 X10^3/uL (2.0-7.7); Basophil# 0.01 X10^3/uL; Basophil% 0.2 % (0-1); Hematocrit 41.3 % (40-54); Hemoglobin 13.9 g/dL (13.0-16.5); Lymphocyte # 0.27 X10^3/ul (0.83-4.51); Lymphocyte % 6.4 % (19-41); Mean Corp Hgb Conc 33.7 g/dL (32-36); Mean Corpuscular Hgb 29.7 pg (27.0-32.0); Mean Corpuscular Volume 88.2 fL (80-94); Mean Platelet Vol. 9.8 fl (6.2-12.0); Monocyte# 0.03 X10^3/uL; Monocyte% 0.7 % (0-10); NRBC Flagged by Analyzer 0 % (0-5); Neutrophil # 3.89 X10^3/uL (2.7-7.7); Neutrophil % 92.2 % (47-70); POSITIVE DIFFERENTIAL YES; POSITIVE MORPHOLOGY YES; Platelet Count 102 K/mm3 (150-450); RBC Distribution Width CV 13.9 % (11.6-14.6); Red Blood Count 4.68 M/mm3 (4.6-6.2); White Blood Count 4.2 K/mm3 (4.4-11.0)
[2023-09-13 07:34] LABS: Differential Indicated SCAN CRITERIA MET
[2023-09-13 07:36] LABS: Anion Gap 10 (5-15); BUN 23 mg/dL (7-18); BUN/Creat Ratio 15.8 RATIO (10-20); Calcium,Total 8.2 mg/dL (8.5-10.1); Chloride 107 mmol/L (98-107); Creatinine, Serum 1.46 mg/dL (0.70-1.30); EST Glomerular Filtration Rate 51 mL/min (>60); Est Glom Filt Rate - Afr Amer 62 mL/min (>60); Estimated Creatinine Clearance 58.23 ml/min; Glucose 94 mg/dL (74-106); Potassium 3.1 mmol/L (3.5-5.1); Sodium Level 140 mmol/L (136-145)
[2023-09-13 07:42] LABS: Lactic Acid 5.1 mmol/L (0.4-1.9)
[2023-09-13 08:04] LABS: Troponin-I HS 717 pg/mL (3.0-78.0)
[2023-09-13] MEDS: Sertraline 100 MG Tablet PO (08:31)
[2023-09-13] MEDS: Magnesium Sulfate 4gm/100mL 4 GM/100 ML IV.SOLN. IV (08:31)
[2023-09-13] MEDS: Enoxaparin 40 MG/0.4 ML Syringe SC (08:31)
--- NOTE | 2023-09-13 08:33 | EX.PCM.CONCC ---
Assessment & Plan Assessment/Plan (1) Sepsis: (2) Urinary tract infection: PLAN: Plan RECOMMENDATIONS: 1. Continue antimicrobial therapy, pending culture results. 2. Avoid further fluid resuscitation. 3. Initiate vasopressor support, if hypotension persists. 4. Aggressive electrolyte repletion. 5. Continue appropriate DVT prophylaxis. 6. Supplemental oxygen to maintain saturations at or above 90%. 7. Encourage incentive spirometer use and mobilize patient as tolerated. IMPRESSIONS: 1. Gram-negative septic shock Clinical concern for underlying gram-negative UTI with secondary hematogenous spread. The patient did develop fluid refractory hypotension, which required transfer to the medical intensive care unit. Ultimately, plan to initiate vasopressor support, if needed to maintain hemodynamic stability. Recommend holding additional IV fluids, given tenuous respiratory status. 2. Acute hypoxemic respiratory failure Clinical concern for pulmonary edema in the setting of volume resuscitation. Although troponin was elevated, BNP was unremarkable. Echocardiogram will be obtained. In the interim, supplemental oxygen will be weaned to maintain saturations at or above 90%. Volume optimization with diuretics can be considered once the patient's hemodynamic status has improved. BiPAP may need to be utilized. Arterial blood gas will be obtained. 3. Acute kidney injury Most likely prerenal in etiology in the setting #1. Continue current supportive care and monitor urine output. No current indication for renal replacement therapy. 4. Hypokalemia/hypophosphatemia/hypomagnesemia Aggressive electrolyte repletion as ordered. Recheck levels status post repletion. 5. Recent history of radical prostatectomy/obesity/hypertension/hyperlipidemia Complicates care, management, recovery and prognosis. Continue to hold home antihypertensives. This note was generated with [employer] dictation software. It may contain incorrect words, spelling, and punctuation that were not noted in checking the note before signing. HPI Consult Data Date of Consult: 09/13/23 HPI Narrative Reason for Consultation: Septic shock HPI Narrative: The patient is a 67-year-old male, with a history as outlined below, who presented to the emergency department via EMS on September 12 with altered mentation, fevers and chills. The patient reported that approximately 7 weeks ago he underwent a radical prostatectomy at [facility]. He did have a urinary tract infection following that procedure which was treated with outpatient antibiotics, with subsequent improvement. The patient currently denies any abdominal pain, dysuria, urgency or frequency. He does not utilize supplemental oxygen at his baseline. He does not endorse any pre-existing pulmonary conditions. He has never been diagnosed with obstructive sleep apnea. On presentation to the emergency department, the patient was documented to be febrile, tachycardic and tachypneic. He was initially hemodynamically stable. Laboratory evaluation was notable for acute kidney injury with a creatinine of 1.4 and lactate of 6.3. Troponin was elevated at 717 with a normal BNP. Urine analysis was notable for leukocyte esterase, nitrates and 3+ urine bacteria. CT abdomen/pelvis was unremarkable. Head CT demonstrated no acute intracranial process. The patient's most recent chest imaging study demonstrated a mild degree of pulmonary vascular congestion. The patient was initially ordered to receive IV fluids and antimicrobials. He was admitted to the progressive care unit. However, the patient ultimately developed hypotension, which necessitated transfer to the medical intensive care unit. On arrival to the ICU, the patient was noted to be alert and oriented to person place and time. He denied any specific complaints. [facility] Medical History (Updated 09/13/23 @ 06:24 by Yanci Dowling) Anxiety Carpal tunnel syndrome on both sides Cellulitis of left hand Depression Hypercholesterolemia Hypertension Kidney stones Laceration of left hand Renal cancer Home Medications atenolol 50 mg tablet 50 mg PO DAILY 09/06/13 [History Last Taken 12/13/20] atorvastatin 10 mg tablet 10 mg PO DAILY CHOLESTEROL 12/13/20 [History Last Taken 12/13/20] hydrochlorothiazide 12.5 mg capsule 12.5 mg PO DAILY FLUID 12/13/20 [History Last Taken 12/13/20] losartan 100 mg tablet 100 mg PO DAILY BP 12/13/20 [History Last Taken 12/13/20] sertraline 100 mg tablet 100 mg PO DAILY DEPRESSION 12/13/20 [History Last Taken 12/13/20] Allergy/AdvReac Type Severity Reaction Status Date / Time No Known Allergies Allergy Verified 09/13/23 01:28 Surgical History (Updated 09/13/23 @ 06:24 by Yanci Dowling) H/O partial nephrectomy History of appendectomy Social History Smoking Status: Never smoker substance use type: does not use ROS ROS Narrative 10 systems were reviewed with pertinent positives as noted in the HPI above. Physical Exam Const alert and no apparent distress Constitutional Narrative: Obese. Sitting upright in bed. General Appearance: cooperative HEENT normocephalic and head/scalp atraumatic Eyes PERRL, EOMs intact bilaterally and conjunctivae normal Neck supple General: trachea midline Chest inspection of chest normal Resp normal respiratory effort Resp Narrative: Mild Rales Cardio regular rate and regular rhythm GI normal to inspection, nondistended, normoactive bowel sounds Extremity no clubbing, cyanosis or edema Skin no rashes or lesions noted Neuro CN's II-XII intact bilaterally, moves all extremities and no focal motor deficits Psych cooperative and affect normal Lab / Micro Data 09/13/23 06:25 09/13/23 06:25 Labs: Laboratory Results - last 24 hr 09/13/23 01:30: WBC 1.7 L, RBC 5.26, Hgb 15.4, Hct 45.6, MCV 86.7, MCH 29.3, MCHC 33.8, RDW Std Deviation 42.9, RDW Coeff of Selin 13.5, Plt Count 185, MPV 9.7, Immature Gran % (Auto) 2.300 H, Neut % (Auto) 48.3, Lymph % (Auto) 47.1 H, Chambers % (Auto) 1.7, Eos % (Auto) 0.0, Baso % (Auto) 0.6, Absolute Neuts (auto) 0.8 L, Absolute Lymphs (auto) 0.81 L, Nucleated RBC % 0, Differential Comment SCANNED, PT 15.0 H, INR 1.2, APTT 24.1, Sodium 137, Potassium 3.8, Chloride 102, Carbon Dioxide 22.0, Anion Gap 13, BUN 22 H, Creatinine 1.44 H, Estim Creat Clear Calc 59.07, Est GFR (MDRD) Af Amer 63, Est GFR (MDRD) Non-Af 52 L, BUN/Creatinine Ratio 15.3, Glucose 118 H, Lactic Acid 6.3 H*, Calcium 9.7, Magnesium 1.4 L, Total Bilirubin 1.60 H, Direct Bilirubin 0.43 H, AST 31, ALT 45, Alkaline Phosphatase 87, Ammonia 11.0, Total Protein 7.7, Albumin 4.0, Globulin 3.7, Procalcitonin 1.77 H, TSH 0.51 09/13/23 02:00: Urine Color Yellow, Urine Clarity Sl. Cloudy, Urine pH 6.0, Ur Specific [place] 1.015, Urine Protein 100 H, Urine Glucose (UA) Normal, Urine Ketones 5 H, Urine Occult Blood 250 H, Urine Nitrite Positive H, Urine Bilirubin Negative, Urine Urobilinogen Normal, Ur Leukocyte Esterase 500 H, Urine RBC 25-50 SEEN, Urine WBC 50-100 SEEN, Ur Squamous Epith Cells 5-10 SEEN, Urine Bacteria 3+, Urine Mucus RARE 09/13/23 06:25: WBC 4.2 L, RBC 4.68, Hgb 13.9, Hct 41.3, MCV 88.2, MCH 29.7, MCHC 33.7, RDW Std Deviation 45.0 H, RDW Coeff of Selin 13.9, Plt Count 102 L, MPV 9.8, Immature Gran % (Auto) 0.500, Neut % (Auto) 92.2 H, Lymph % (Auto) 6.4 L, Chambers % (Auto) 0.7, Eos % (Auto) 0.0, Baso % (Auto) 0.2, Absolute Neuts (auto) 3.9, Absolute Lymphs (auto) 0.27 L, Nucleated RBC % 0, Sodium 140, Potassium 3.1 L, Chloride 107, Carbon Dioxide 23.0, Anion Gap 10, BUN 23 H, Creatinine 1.46 H, Estim Creat Clear Calc 58.23, Est GFR (MDRD) Af Amer 62, Est GFR (MDRD) Non-Af 51 L, BUN/Creatinine Ratio 15.8, Glucose 94, Lactic Acid 5.1 H*, Calcium 8.2 L, Phosphorus 1.0 L*, Troponin I High Sens 717 H*, B-Natriuretic Peptide 52.0 Micro: Microbiology 09/13/23 01:58 Mucosa - Nose SARS-CoV-2, Influenza & RSV (PCR) - Final Imaging Radiology Impression Abdomen/Pelvis CT 09/13/23 01:34 IMPRESSION: No acute findings to explain the patient''s symptomatology. Electronically Signed: Tim Gant MD at 4:05 EDT , Brain CT 09/13/23 01:34 IMPRESSION: No acute intracranial finding. Electronically Signed: Tim Gant MD at 3:44 EDT , Chest X-Ray 09/13/23 01:34 IMPRESSION: No acute pulmonary finding. Electronically Signed: Tim Gant MD at 3:39 EDT , Charges/Coding Visit Charges Inpatient E&M: 19820 Init Hosp L3
--- NOTE | 2023-09-13 08:37 | ECHOD_ITS ---
Reason For Study: abn ekg Procedure This was a 2D Doppler, Color Flow transthoracic echocardiogram. Exam performed in department. Left Ventricle Normal LV size. The estimated ejection fraction is 60 %. No evidence for diastolic dysfunction. No regional wall motion abnormalities noted. Right Ventricle Normal RV size. Normal systolic function. Atria The left and right atria are normal. No doppler evidence for ASD. Mitral Valve There is no mitral valve stenosis. Trivial mitral valve insufficiency. Tricuspid Valve There is no tricuspid stenosis. Trivial tricuspid valve insufficiency. Pulmonary artery systolic pressure is 30 mmHg. Aortic Valve Trisinus/trileaflet aortic valve. Aortic sclerosis, no stenosis. There is no aortic stenosis. No aortic valve insufficiency. Pulmonic Valve There is no pulmonic valvular stenosis. No pulmonic valve insufficiency. Great Vessels Normal aortic root. Pericardium/Pleural No pericardial effusion. MMode/2D Measurements & Calculations LVIDd: 4.4 cm IVSd: 1.7 cm Ao root diam: 3.6 cm LVIDs: 3.4 cm LVPWd: 1.5 cm FS: 22.7 % LAV(MOD-bp): 61.7 ml LVAd ap4: 29.6 cm2 SV(MOD-sp4): 43.4 ml LAV(MOD-bp) Indexed: 28.9 ml/m2 LVLd ap4: 8.3 cm LAV(MOD-sp2): 55.3 ml EDV(MOD-sp4): 89.8 ml LAV(MOD-sp4): 63.2 ml EDV(sp4-el): 90.1 ml LVAs ap4: 18.7 cm2 LVLs ap4: 6.3 cm ESV(MOD-sp4): 46.4 ml ESV(sp4-el): 46.7 ml EF(MOD-sp4): 48.3 % EF(sp4-el): 48.2 % SV(sp4-el): 43.5 ml LA A4 area: 19.8 cm2 LA dimension(2D): 3.2 cm RA A4 area: 11.9 cm2 TAPSE: 2.0 cm Time Measurements MV dec time: 0.11 sec Doppler Measurements & Calculations MV E max jay: 72.8 cm/sec Lat Peak E' Jay: 5.7 cm/sec Med Peak E' Jay: 8.6 cm/sec MV A max jay: 84.1 cm/sec E/E' lat: 12.7 E/E' med: 8.4 MV E/A: 0.87 MV V2 max: 88.5 cm/sec Ao V2 max: 131.3 cm/sec MV max P.1 mmHg MV dec slope: 656.0 cm/sec2 Ao max P.9 mmHg MV V2 mean: 48.6 cm/sec Ao V2 mean: 96.7 cm/sec MV mean P.2 mmHg Ao mean P.2 mmHg MV V2 VTI: 14.4 cm Ao V2 VTI: 22.0 cm AV (velocity ratio): 1.1 LV V1 max: 118.8 cm/sec PA V2 max: 93.5 cm/sec TR max jay: 245.0 cm/sec LV V1 max P.6 mmHg PA V2 mean: 71.2 cm/sec TR max P.0 mmHg LV V1 mean P.9 mmHg LV V1 mean: 76.7 cm/sec LV V1 VTI: 23.7 cm ECHO/Echo Complete Interpretation Summary The estimated ejection fraction is 60 %. No evidence for diastolic dysfunction. Trivial mitral valve insufficiency. Ordering Physician: Claire Arias Referring Physician: Garry tiwari Performed By: Adelita Avalos and Student
[2023-09-13] MEDS: Potassium Phosphate 40 MM in 0.9% Normal Saline (500mL Bag) 500 ML 62.5 MM IV (09:41)
[2023-09-13 09:47] LABS: Differential Comment SCANNED; Reactive Lymphocyte 1+
[2023-09-13 09:52] LABS: Allen Test Positive; Base Excess -7 mmol/L (-2 to +2); Bicarbonate 18.5 mmol/L (22-26); Blood Gas Specimen Type ART; Mode Not entered; O2 Delivery Device Venti Mask; PO2 90 mmHG (75-100); SITE R Radial; SO2 97 % (95-99); Total Carbon Dioxide 20 mmol/L; pCO2 31.2 mmHg (35-45); pH 7.38 (7.35-7.45)
--- NOTE | 2023-09-13 10:02 | CASEMGMT ---
PRANEETH TAVAREZ Assessment Face to Face with patient for initial transition planning/care coordination assessment. PRANEETH TAVAREZ introduced self and role at [facility], pt voices understanding. Pt is A&Ox4 and is resting comfortably in bed and is calm. Pt at bedside. Care providers, pharmacy, and demographics verified. Admitting dx: Sepsis, UTI LACE Strata: 1 PCP: Garry Moran Specialists: Dr. Martinez ([facility] - [facility]) Preferred Pharmacy: [facility] [place] Insurance: [employer] Prescription Benefit: Yes LNOK: Mady Morales (W) Living Arrangements: Pt lives with his in a 2 story home with a BM with handrails throughout with 2 steps to enter ADLs/IADLs: States Ind Transportation: Self, DME: Walk in shower. BP Cuff. Pulse Ox. Pt is currently on HF oxygen. Pt denies wearing oxygen at home. A local list of in-network DME companies provided to the pt. Pt chose [employer] for potential home oxygen needs. HHC/SNF: Denies history or needs Pt?s goal: Home Plan: Pt refuses HHC, OP Therapy, and SNF placement at this time. Pt wishes to return home once medically ready. Dr. Perez states to hold PT today. Will follow evaluation for recommendations once completed. CM to follow for home O2 needs. CM to follow for safe DC from [facility]. Saranya Dang RN, CM
[2023-09-13] MEDS: 0.9 % NaCl (Sterile) Posiflush 10 mL IV (11:52)
--- NOTE | 2023-09-13 11:57 | SEPSISATNOTE ---
Sepsis Attestation Sepsis Attestation: Agree w/Sepsis Date exam was performed: 09/13/23 Time exam was performed: 11:57 Possible Source of Sepsis: Genitourinary Sepsis Organ Dysfunction Criteria Present: SBP < 90 mmHg or MAP < 65 mmHg and Lactic Acid > 2 mmol/L Fluid Resuscitation Fluid resuscitation indicated?: Yes Fluid Resuscitation ordered: 30 ml/kg fluid bolus ordered Amount of fluid ordered: 3
[2023-09-13] MEDS: Polyethylene Glycol 3350 17 GM PACKET PO (13:28)
--- NOTE | 2023-09-13 14:32 | PCM.PN.HOSP ---
Reason for Visit Reason for Visit: Fevers/chills/confusion Subjective Subjective Mr. Morales is a 67-year-old white male who presented to the emergency department on 09/13/2023 early in the morning with fevers, chills, and confusion. His assisted with his history and physical in the emergency department as he was confused and not really able to partake in answering questions. She reported that he has a history of prostate cancer and had a radical prostatectomy at [facility] in [place] about 7 weeks ago. He evidently did well following the procedure but he did have a UTI about 2 weeks after the procedure was performed that was treated with outpatient antibiotics and improved. His reported that he began to have chills the day prior to presentation and fairly quickly became encephalopathic which prompted her to call the emergency department as she was concerned that me he may have a recurrent UTI. Upon arrival to the emergency department he was found to have a rectal temperature of 105 degrees, heart rate was in the 120s to 130s but blood pressure was in normal range at that time. He was tachypneic with respiratory rates between 30 and 40 and his oxygen saturations were 90 to 95% on 3 to 4 L nasal cannula. His CBC showed leukopenia with a white count of 1.7 and a lymphocytosis. Coags were normal. His chemistry panel showed normal electrolytes with a normal anion gap and a bicarb of 22. His BUN was 22 and his serum creatinine is 1.44 with an unknown baseline. His glucose was 118. His initial lactate was 6.3 with a repeat at 5.1. His phosphorus was 1.0 and his magnesium level was 1.4. Total bilirubin was mildly elevated 1.6 and his LFTs were normal. His troponin was 717 with a normal BNP. Procalcitonin was elevated at 1.77 with a TSH that was 0.5. His UA was suggestive of infection having nitrates, leuk esterase, white cells and 3+ bacteria. CT of the abdomen pelvis showed no acute findings. She the brain had no acute cranial findings. Chest x-ray had no acute pulmonary findings. Urine and blood cultures were obtained and he was started on vancomycin and Zosyn by the emergency department and then admitted to the PCU on Zosyn for suspected gram-negative infection. After he received antibiotics he unfortunately decompensated with regards to his blood pressure and was transferred to the ICU. Fluid boluses were given per sepsis guidelines at 30 cc/kg body weight and he was responsive to fluids. He is currently in ICU. His mentation seems to be improving. He still is on supplemental oxygen with some respiratory distress. But no extremis. His and daughter at the bedside. They do indicate he is appearing much better than he was upon presentation. Objective Data Objective Data Vital Signs: Vital Signs Temp Pulse Resp BP Pulse Ox O2 Del Method O2 Flow Rate 99.1 F 106 H 26 H 101/68 96 Venturi Mask 4 09/13/23 12:00 09/13/23 14:00 09/13/23 14:00 09/13/23 14:00 09/13/23 14:00 09/13/23 14:00 09/13/23 13:00 FiO2 50 09/13/23 14:00 Oxygen Flow Rate (L/min) 4 Oxygen Delivery Method Venturi Mask Weight: 98 kg Body Mass Index (BMI) 31.8 Intake & Output: Intake and Output for Last 24 Hours 09/11/23 09/12/23 09/13/23 23:59 23:59 23:59 Intake Total 4485 / 4485 Output Total 825 / 825 Balance 3660 / 3660 Lab / Micro Data 09/13/23 06:25 09/13/23 06:25 Labs: Laboratory Results - last 24 hr 09/13/23 01:30: WBC 1.7 L, RBC 5.26, Hgb 15.4, Hct 45.6, MCV 86.7, MCH 29.3, MCHC 33.8, RDW Std Deviation 42.9, RDW Coeff of Selin 13.5, Plt Count 185, MPV 9.7, Immature Gran % (Auto) 2.300 H, Neut % (Auto) 48.3, Lymph % (Auto) 47.1 H, Morrison % (Auto) 1.7, Eos % (Auto) 0.0, Baso % (Auto) 0.6, Absolute Neuts (auto) 0.8 L, Absolute Lymphs (auto) 0.81 L, Nucleated RBC % 0, Differential Comment SCANNED, PT 15.0 H, INR 1.2, APTT 24.1, Sodium 137, Potassium 3.8, Chloride 102, Carbon Dioxide 22.0, Anion Gap 13, BUN 22 H, Creatinine 1.44 H, Estim Creat Clear Calc 59.07, Est GFR (MDRD) Af Amer 63, Est GFR (MDRD) Non-Af 52 L, BUN/Creatinine Ratio 15.3, Glucose 118 H, Lactic Acid 6.3 H*, Calcium 9.7, Magnesium 1.4 L, Total Bilirubin 1.60 H, Direct Bilirubin 0.43 H, AST 31, ALT 45, Alkaline Phosphatase 87, Ammonia 11.0, Total Protein 7.7, Albumin 4.0, Globulin 3.7, Procalcitonin 1.77 H, TSH 0.51 09/13/23 02:00: Urine Color Yellow, Urine Clarity Sl. Cloudy, Urine pH 6.0, Ur Specific [place] 1.015, Urine Protein 100 H, Urine Glucose (UA) Normal, Urine Ketones 5 H, Urine Occult Blood 250 H, Urine Nitrite Positive H, Urine Bilirubin Negative, Urine Urobilinogen Normal, Ur Leukocyte Esterase 500 H, Urine RBC 25-50 SEEN, Urine WBC 50-100 SEEN, Ur Squamous Epith Cells 5-10 SEEN, Urine Bacteria 3+, Urine Mucus RARE 09/13/23 06:25: WBC 4.2 L, RBC 4.68, Hgb 13.9, Hct 41.3, MCV 88.2, MCH 29.7, MCHC 33.7, RDW Std Deviation 45.0 H, RDW Coeff of Selin 13.9, Plt Count 102 L, MPV 9.8, Immature Gran % (Auto) 0.500, Neut % (Auto) 92.2 H, Lymph % (Auto) 6.4 L, Morrison % (Auto) 0.7, Eos % (Auto) 0.0, Baso % (Auto) 0.2, Absolute Neuts (auto) 3.9, Absolute Lymphs (auto) 0.27 L, Nucleated RBC % 0, Differential Comment SCANNED, Reactive Lymphocytes 1+, Sodium 140, Potassium 3.1 L, Chloride 107, Carbon Dioxide 23.0, Anion Gap 10, BUN 23 H, Creatinine 1.46 H, Estim Creat Clear Calc 58.23, Est GFR (MDRD) Af Amer 62, Est GFR (MDRD) Non-Af 51 L, BUN/Creatinine Ratio 15.8, Glucose 94, Lactic Acid 5.1 H*, Calcium 8.2 L, Phosphorus 1.0 L*, Troponin I High Sens 717 H*, B-Natriuretic Peptide 52.0 Micro: Microbiology 09/13/23 01:30 Blood Culture (Wb) - Anticubital Right Blood Culture - Preliminary 09/13/23 01:35 Blood Culture (Wb) - Left Forearm Blood Culture - Preliminary 09/13/23 01:58 Mucosa - Nose SARS-CoV-2, Influenza & RSV (PCR) - Final ABG Data ABG results: ABG 09/13/23 09:34 Specimen Type ART Sample Site R Radial pH 7.38 Bicarbonate Actual 18.5 L Total CO2 20 Base Excess -7 L O2 Saturation 97 O2 % 50.0 ABG pCO2 31.2 L ABG pO2 90 Rebel Test Positive O2 Delivery Device Venti Mask Vent Mode Not entered Radiography Diagnostic Testing: Radiology Impression Abdomen/Pelvis CT 09/13/23 01:34 IMPRESSION: No acute findings to explain the patient''s symptomatology. Electronically Signed: Tim Gant MD at 4:05 EDT , Brain CT 09/13/23 01:34 IMPRESSION: No acute intracranial finding. Electronically Signed: Tim Gant MD at 3:44 EDT , Chest X-Ray 09/13/23 01:34 IMPRESSION: No acute pulmonary finding. Electronically Signed: Tim Gant MD at 3:39 EDT , Chest X-Ray 09/13/23 07:15 IMPRESSION: Mild degree of vascular congestion with increased markings at the left lung base suggestive of linear atelectasis with blunting of the left costophrenic angle. Borderline cardiomegaly. Electronically Signed: Phil Parisi MD at 8:32 EDT , Echocardiogram 09/13/23 08:37 Interpretation Summary The estimated ejection fraction is 60 %. No evidence for diastolic dysfunction. Trivial mitral valve insufficiency. Ordering Physician: Claire Arias Referring Physician: Garry tiwari Performed By: Adelita Avalos and Student Assessment & Plan Assessment/Plan (1) Sepsis: (2) Urinary tract infection: (3) Elevated troponin I level: (4) Acute hypoxic respiratory failure: (5) Hypomagnesemia: (6) Hypokalemia: (7) Hypophosphatemia: (8) Lactic acidosis: (9) Elevated serum creatinine: PLAN: Plan Sepsis shock secondary to probable gram-negative bacteremia due to UTI -Patient meets sepsis criteria with marked lactic acidosis, altered mental status, acute respiratory failure, fever and a source -Meets criteria for shock with lactate greater than 4 -Has been responsive to fluid boluses thus far and no pressors at this time are required -Continue Zosyn -Will narrow once we have culture results and sensitivities -No signs of obstruction on imaging -Continue monitoring in the ICU -Appreciate pulmonary/critical care involvement Acute hypoxic respiratory failure -ABG does not show any signs of hypercapnia and he seems to be oxygenating well on current oxygen -Could potentially be related to volume resuscitation however chest x-ray and troponin unremarkable -Echocardiogram is pending -May also just be related to his sepsis -Is not oxygen dependent at baseline and will wean oxygen as able Elevated serum creatinine -Baseline creatinine is unknown as of recent -Creatinine on admission was 1.44 -Will repeat tomorrow after hydration and volume resuscitation -Avoid nephrotoxins as able Elevated troponin -Likely related to septic shock -Check echocardiogram--> if no wall motion abnormality will defer cardiology and involvement Lactic acidosis -Related to the above -Patient appears to be compensating and acidosis seems to be resolving with fluid resuscitation Hypophosphatemia/hypomagnesemia/hypokalemia -Electrolytes are currently being replaced -Will repeat in a.m. Toxic/metabolic encephalopathy -Secondary to the above -Should improve with treatment of his underlying disease process Prostate cancer/BPH with obstruction -Once pressure stabilized we will start Flomax -Recently underwent radical prostatectomy -Encouraged outpatient follow-up Hypertension -Hold atenolol -Hold hydrochlorothiazide -Hold losartan -Reintroduce antihypertensives slowly once blood pressures allow hyperlipidemia -Continue home statin Obesity -BMI 31.9 -Recommend weight loss -Complicates treatment, prognosis, outcomes DVT prophylaxis -Continue enoxaparin 40 mg subcu daily CODE STATUS -Full code as was verified prior to admission Charges/Coding Visit Charges Inpatient E&M: 03208 Subs Hosp L2
--- NOTE | 2023-09-13 15:01 | PCM.OP.PRO ---
Procedure Report Date of Procedure: 09/13/23 Assessment & Plan Assessment/Plan (1) Sepsis: QUALIFIERS: Sepsis type: sepsis due to unspecified organism Sepsis acute organ dysfunction status: unspecified Qualified Code(s): A41.9 - Sepsis, unspecified organism PLAN: Procedures Radiology Radiology Access Procedures: PICC Procedure Time Out Time Out Informed consent given: Yes Consent signed: Yes Time out checklist: patient, procedure, site marked/identified, positioning of patient, supplies available and allergies confirmed Time out staff in room: Yes Time out verified: Yes Time out date: 09/13/23 Time out time: 13:34 PICC Line Consent Screening tool completed:: Yes Consent obtained:: Yes Consent given by (patient or responsible green party):: patient Line successful (if no, document why in comments):: Yes Insertion Reason for Insertion: Poor Venous Access Date of Insertion: 09/13/23 Ok to use: Yes Type of PICC inserted: Dual Power PICC PICC Lot #: [id number] PICC Reference #: [id number] Microintroducer Used: Yes (in kit) Ultrasound/Equipment Used: Probe Cover Kit Trimmed Length (cm): 47 Insertion Length (cm): 46 Exposed Length (cm): 1 Tip Placement: Caval Atrial Junction Placement Confirmation: 3CG Insertion Vein: Right Cephalic Insertion Attempts: 1 Local Anesthesia Used: Lidocaine 1% (in kit) Dressing Applied: Statlock and Tegaderm CHG Arm Measurement above site (in cm): 33 Patient Tolerated Procedure: Well Threading Difficulties: No Comments Comment: Patient identity was verified with two patient identifiers. Informed consent was obtained and time-out was completed. Hands were sanitized. The patient was positioned supine with right arm at 90 degrees. The patient's upper arm vasculature was assessed using ultrasound. Patency of the right basilic vein was confirmed and the vein was externally marked. An external measurement was obtained of 47 cm. External leads were applied to the patient's right upper chest and laterally and inferior of the umbilicus on the mid axillary line. Cap, mask, and prep gloves were donned. The underdrape was placed under the patient's arm. The site was prepped with chlorhexidine, and tourniquet was loosely applied. Prep gloves were discarded, and hands were sanitized. The sterile kit was opened with additional supplies dropped in. Sterile gown and gloves were donned, and the patient was draped. The sterile kit was assembled with needle, introducer, needless connectors, and each catheter lumen flushed with sterile normal saline. The marked site of insertion was anesthetized with 1% lidocaine from the kit. Patient tolerated well. The right basilic vein was then accessed using ultrasound guidance and guidewire was inserted to safety mira. The tourniquet was released. The access needle was removed while securing the guidewire in place. The site was again anesthetized with 1% lidocaine, prior to insertion of introducer sheath and dilator. Patient tolerated the insertion well. The catheter was trimmed to a length of 47 cm. Using 3C guidance, the catheter was then inserted through the introducer sheath, slowly. There was no resistance on insertion. The catheter followed the expected course of the vessel using 3CG tracking. The introducer sheath was retracted and peeled away, incrementally, while keeping the catheter secured. Maximal p-wave, without deflection, confirming placement in the cavoatrial junction, was obtained at an insertion length of 46 cm, leaving 1 cm external. The stylet was removed. A flushed needleless connector was attached to the lumen. Aspiration of the lumen was performed to remove any air and confirm blood return. Blood return was verified and each lumen was flushed with 10 ml of sterile normal saline in a pulsatile fashion. The each lumen was clamped with the last pulsed flush. Total sterile flushes used for the insertion was 7 10 ml syringes, 2 from the kit. Finally, the insertion site was cleaned with chlorhexidine, and the catheter was secured using a StatLock. The site was covered with a Tegaderm CHG Dressing and disinfecting caps were applied. Baseline arm circumference was obtained at the insertion site and measured 33 cm. The patient was provided with a patient education handout on PICC line care of infection prevention, heavy lifting restriction, maintaining mobility, and watching for any signs of infection. The primary nurse is aware that the PICC line is ready for use.
[2023-09-13] MEDS: HYDROmorphone 0.5 MG/0.5 ML SYRINGE IV (15:41)
[2023-09-13] MEDS: Atorvastatin Calcium 10 MG Tablet PO (22:49)
[2023-09-14] VITALS (50 sets, daily range): BP systolic 68–125; BP diastolic 49–95; PULSE 74–145; RESP 16–31; TEMP 36.6–37.1; O2SAT 90–100; BMI 33.4
[2023-09-14] MEDS: Acetaminophen 325 MG Tablet 650 MG PO ×6 (00:14→20:44)
[2023-09-14] MEDS: Norepinephrine 8 MG in 0.9% Normal Saline (250mL Bag) 242 ML 9.4 MG CONT INF (04:15)
[2023-09-14 04:46] LABS: Hematocrit 36.6 % (40-54); Hemoglobin 12.4 g/dL (13.0-16.5); Mean Corp Hgb Conc 33.9 g/dL (32-36); Mean Corpuscular Hgb 29.4 pg (27.0-32.0); Mean Corpuscular Volume 86.7 fL (80-94); Mean Platelet Vol. 10.2 fl (6.2-12.0); POSITIVE COUNT YES; POSITIVE DIFFERENTIAL YES; POSITIVE MORPHOLOGY YES; Platelet Count 59 K/mm3 (150-450); RBC Distribution Width CV 14.1 % (11.6-14.6); RBC Distribution Width SD 44.6 fl (35.1-43.9); Red Blood Count 4.22 M/mm3 (4.6-6.2); White Blood Count 12.3 K/mm3 (4.4-11.0)
[2023-09-14] MEDS: Piperacil/Tazobactam 3.375 GM in 0.9% Normal Saline (50mL MB+) 50 ML IV ×3 (05:13→20:44)
[2023-09-14 05:34] LABS: ALB/GLOB Ratio 0.9 RATIO (0.9-2.4); AST(SGOT) 150 U/L (15-37); Alanine Aminotransfer ALT/SGPT 141 U/L (16-61); Albumin, Serum 2.7 g/dL (3.2-5.0); Alkaline Phosphatase 63 U/L (45-117); Anion Gap 9 (5-15); BUN 27 mg/dL (7-18); BUN/Creat Ratio 20.3 RATIO (10-20); Calcium,Total 7.2 mg/dL (8.5-10.1); Chloride 105 mmol/L (98-107); Creatinine, Serum 1.33 mg/dL (0.70-1.30); EST Glomerular Filtration Rate 57 mL/min (>60); Est Glom Filt Rate - Afr Amer 69 mL/min (>60); Estimated Creatinine Clearance 63.93 ml/min; Globulin 2.9 g/dL (2.2-4.2); Glucose 96 mg/dL (74-106); Magnesium 2.3 mg/dL (1.6-2.6); Phosphorus 4.9 mg/dL (2.5-4.9); Potassium 3.1 mmol/L (3.5-5.1); Protein, Total 5.6 g/dL (6.4-8.2); Sodium Level 135 mmol/L (136-145)
[2023-09-14 06:02] LABS: Differential Indicated MANUAL DIFF
[2023-09-14 06:08] LABS: Lymphocyte 2 % (19-41); Metamyelocyte 5 % (0-1); Myelocyte 2 % (0-0); Neutrophil-Band 15 % (0-5); Neutrophil-Segmented 76 % (47-70); Total Cells Counted 100 (MANUAL DIFF)
[2023-09-14 06:10] LABS: Platelet Estimate MKD DEC (ADEQ)
[2023-09-14 06:12] LABS: Absolute Lymphocyte Count 0.25 X10^3/uL (0.83-4.51); Absolute Neutrophil Count 11.2 X10^3/uL (2.0-7.7)
[2023-09-14] MEDS: Potassium Chloride Oral Tablet 20 MEQ 60 MEQ PO (07:10)
--- NOTE | 2023-09-14 07:44 | PN.CC_ITS ---
Assessment & Plan Assessment/Plan (1) Sepsis: QUALIFIERS: Sepsis acute organ dysfunction status: unspecified Sepsis type: sepsis due to unspecified organism Qualified Code(s): A41.9 - Sepsis, unspecified organism (2) Urinary tract infection: PLAN: Plan RECOMMENDATIONS: 1. Continue antimicrobial therapy. 2. Continue Levophed to maintain a mean arterial pressure at or above 65 mmHg. 3. Potassium repletion as ordered. 4. Continue appropriate DVT prophylaxis. 5. Supplemental oxygen to maintain saturations at or above 90%. 6. Encourage incentive spirometer use and mobilize patient as tolerated. IMPRESSIONS: 1. Gram-negative septic shock Clinical concern for underlying gram-negative UTI with secondary hematogenous spread. The patient did develop fluid refractory hypotension, which required transfer to the medical intensive care unit and initiation of vasopressor support. The patient will be continued on Levophed to maintain a mean arterial pressure at or above 65 mmHg, along with antimicrobial therapy, pending finalized culture results. 2. Acute hypoxemic respiratory failure Clinical concern for pulmonary edema in the setting of volume resuscitation. Although troponin was elevated, BNP was unremarkable. Supplemental oxygen will be weaned to maintain saturations at or above 90%. Volume optimization with diuretics can be considered once the patient's hemodynamic status has improved. 3. Acute kidney injury Most likely prerenal in etiology in the setting #1. Continue current supportive care and monitor urine output. No current indication for renal replacement therapy. 4. Hypokalemia Aggressive electrolyte repletion as ordered. Recheck levels status post repletion. 5. Recent history of radical prostatectomy/obesity/hypertension/hyperlipidemia Complicates care, management, recovery and prognosis. Continue to hold home antihypertensives. TIME: 33 minutes of critical care time, independent of procedures, was spent addressing the patient's gram-negative septic shock, acute hypoxemic respiratory failure, acute kidney injury, review of all data and collaboration with care team. Subjective Subjective The patient was seen and examined at the bedside this morning. Events from the last 24 hours have been reviewed. The patient ultimately had to be initiated on Levophed yesterday and is currently infusing at 6 mcg/min. The patient is documented to be overall net +3.1 L for the hospitalization. The patient did report the presence of bilateral hand numbness and pain. Objective Data Objective Data The patient's most recent lab work, culture data and imaging studies have all been personally reviewed. Surface echocardiogram demonstrated normal LV size and function with an ejection fraction of 60%. Pulmonary artery systolic pressure was estimated to be 30 mmHg. Urine culture is pending. Blood cultures are demonstrating growth of gram-negative chavez, lactose operations manager station. Vital Signs: Vital Signs Temp Pulse Resp BP Pulse Ox O2 Del Method O2 Flow Rate 97.9 F 82 23 H 103/74 98 Nasal Cannula 3 09/14/23 06:00 09/14/23 06:30 09/14/23 06:30 09/14/23 06:30 09/14/23 06:30 09/14/23 06:00 09/14/23 06:30 FiO2 50 09/13/23 22:00 Oxygen Flow Rate (L/min) 3 Oxygen Delivery Method Nasal Cannula Weight: 226 lb 3.108 oz Body Mass Index (BMI) 33.4 Intake & Output: Intake and Output for Last 24 Hours 09/12/23 09/13/23 09/14/23 23:59 23:59 23:59 Intake Total 5948.3333 / 5948.3333 274.96 / 274.96 Output Total 2375 / 2375 700 / 700 Balance 3573.3333 / 3573.3333 -425.04 / -425.04 Lab / Micro Data Attestation: I reviewed the patient's lab results. 09/14/23 04:10 09/14/23 04:10 Labs: Laboratory Results - last 24 hr 09/13/23 06:25: Differential Comment SCANNED, Reactive Lymphocytes 1+, Phosphorus 1.0 L*, Troponin I High Sens 717 H*, B-Natriuretic Peptide 52.0 09/14/23 04:10: WBC 12.3 H, RBC 4.22 L, Hgb 12.4 L, Hct 36.6 L, MCV 86.7, MCH 29.4, MCHC 33.9, RDW Std Deviation 44.6 H, RDW Coeff of Selin 14.1, Plt Count 59 L , MPV 10.2, Neut % (Auto) Not Reportable, Absolute Neuts (auto) 11.2 H, Absolute Lymphs (auto) 0.25 L, Total Counted 100, Neutrophils % (Manual) 76 H, Band Neutrophils % 15 H, Lymphocytes % (Manual) 2 L, Metamyelocytes % 5 H, Myelocytes % 2 H, Diff Path Review May foll, Platelet Estimate MKD DEC, Sodium 135 L, Potassium 3.1 L, Chloride 105, Carbon Dioxide 21.0, Anion Gap 9, BUN 27 H, Creatinine 1.33 H, Estim Creat Clear Calc 63.93, Est GFR (MDRD) Af Amer 69, Est GFR (MDRD) Non-Af 57 L, BUN/Creatinine Ratio 20.3 H, Glucose 96, Calcium 7.2 L, Phosphorus 4.9, Magnesium 2.3, Total Bilirubin 2.70 H, AST 150 H, ALT 141 H, Alkaline Phosphatase 63, Total Protein 5.6 L, Albumin 2.7 L, Globulin 2.9, Albumin/Globulin Ratio 0.9 Micro: Microbiology 09/13/23 01:30 Blood Culture (Wb) - Anticubital Right Blood Culture - Preliminary 09/13/23 01:35 Blood Culture (Wb) - Left Forearm Blood Culture - Preliminary 09/13/23 01:58 Mucosa - Nose SARS-CoV-2, Influenza & RSV (PCR) - Final ABG Data ABG results: ABG 09/13/23 09:34 Specimen Type ART Sample Site R Radial pH 7.38 Bicarbonate Actual 18.5 L Total CO2 20 Base Excess -7 L O2 Saturation 97 O2 % 50.0 ABG pCO2 31.2 L ABG pO2 90 Rebel Test Positive O2 Delivery Device Venti Mask Vent Mode Not entered Radiography Diagnostic Testing: Radiology Impression Chest X-Ray 09/13/23 07:15 IMPRESSION: Mild degree of vascular congestion with increased markings at the left lung base suggestive of linear atelectasis with blunting of the left costophrenic angle. Borderline cardiomegaly. Electronically Signed: Phil Parisi MD at 8:32 EDT , Echocardiogram 09/13/23 08:37 Interpretation Summary The estimated ejection fraction is 60 %. No evidence for diastolic dysfunction. Trivial mitral valve insufficiency. Ordering Physician: Claire Arias Referring Physician: Garry tiwari Performed By: Adelita Avalos and Student Physical Exam Const alert and no apparent distress Constitutional Narrative: Obese. Sitting upright in bed. General Appearance: cooperative HEENT normocephalic and head/scalp atraumatic Eyes PERRL, EOMs intact bilaterally and conjunctivae normal Neck supple General: trachea midline Chest inspection of chest normal Resp normal respiratory effort and no use of accessory muscles Auscultation: Negative for rales, rhonchi or wheezes Cardio regular rate and regular rhythm GI normal to inspection, nondistended, normoactive bowel sounds Extremity no clubbing, cyanosis or edema Skin no rashes or lesions noted Neuro CN's II-XII intact bilaterally, moves all extremities and no focal motor deficit s Psych cooperative and affect normal Charges/Coding Procedures Hospitalists Procedures: 69481 Critical Care 1st Hr
[2023-09-14] MEDS: Sertraline 100 MG Tablet PO (08:19)
[2023-09-14] MEDS: Potassium Chloride 20mEq/100mL 20 MEQ/100 ML IV.SOLN. 100 MEQ IV BOLUS ×2 (09:27→10:33)
--- NOTE | 2023-09-14 12:02 | PN.HOSP_ITS ---
Reason for Visit Reason for Visit: Fever/chills/confusion Subjective Subjective Patient is up in a chair and feels much better today than did yesterday. He looks as if he is billing much better as well. No specific complaints today. Still intermittent fevers through the night. With Tmax of 103 degrees. I did talk to him and his about the fact that he probably has some obstructive sleep apnea. She agrees and has been trying to get him evaluated but he has been reluctant to do so. She did thank me for mentioning it to him. Will make referral at discharge. Objective Data Objective Data Vital Signs: Vital Signs Temp Pulse Resp BP Pulse Ox O2 Del Method O2 Flow Rate 97.9 F 86 20 H 110/82 H 96 Nasal Cannula 2 09/14/23 06:00 09/14/23 11:45 09/14/23 11:14 09/14/23 11:45 09/14/23 11:14 09/14/23 11:14 09/14/23 11:14 FiO2 50 09/13/23 22:00 Oxygen Flow Rate (L/min) 2 Oxygen Delivery Method Nasal Cannula Weight: 102.6 kg Body Mass Index (BMI) 33.4 Intake & Output: Intake and Output for Last 24 Hours 09/12/23 09/13/23 09/14/23 23:59 23:59 23:59 Intake Total 5948.3333 / 5948.3333 582.86 / 582.86 Output Total 2375 / 2375 1350 / 1350 Balance 3573.3333 / 3573.3333 -767.14 / -767.14 Lab / Micro Data 09/14/23 04:10 09/14/23 04:10 Labs: Laboratory Results - last 24 hr 09/14/23 04:10: WBC 12.3 H, RBC 4.22 L, Hgb 12.4 L, Hct 36.6 L, MCV 86.7, MCH 29.4, MCHC 33.9, RDW Std Deviation 44.6 H, RDW Coeff of Selin 14.1, Plt Count 59 L , MPV 10.2, Neut % (Auto) Not Reportable, Absolute Neuts (auto) 11.2 H, Absolute Lymphs (auto) 0.25 L, Total Counted 100, Neutrophils % (Manual) 76 H, Band Neutrophils % 15 H, Lymphocytes % (Manual) 2 L, Metamyelocytes % 5 H, Myelocytes % 2 H, Diff Path Review May , Platelet Estimate MKD DEC, Sodium 135 L, Potassium 3.1 L, Chloride 105, Carbon Dioxide 21.0, Anion Gap 9, BUN 27 H, Creatinine 1.33 H, Estim Creat Clear Calc 63.93, Est GFR (MDRD) Af Amer 69, Est GFR (MDRD) Non-Af 57 L, BUN/Creatinine Ratio 20.3 H, Glucose 96, Calcium 7.2 L, Phosphorus 4.9, Magnesium 2.3, Total Bilirubin 2.70 H, AST 150 H, ALT 141 H, Alkaline Phosphatase 63, Total Protein 5.6 L, Albumin 2.7 L, Globulin 2.9, Albumin/Globulin Ratio 0.9 Micro: Microbiology 09/13/23 02:00 Urine Catheter - [place] Urine Culture - Preliminary GNR lactose flatwork finisher hand 09/13/23 01:35 Blood Culture (Wb) - Left Forearm Blood Culture - Preliminary GNR lactose flatwork finisher hand 09/13/23 01:30 Blood Culture (Wb) - Anticubital Right Blood Culture - Preliminary GNR lactose flatwork finisher hand 09/13/23 01:58 Mucosa - Nose SARS-CoV-2, Influenza & RSV (PCR) - Final Radiography Diagnostic Testing: Radiology Impression Echocardiogram 09/13/23 08:37 Interpretation Summary The estimated ejection fraction is 60 %. No evidence for diastolic dysfunction. Trivial mitral valve insufficiency. Ordering Physician: Claire Arias Referring Physician: Garry tiwari Performed By: Adelita Avalos and Student Physical Exam Const alert, oriented x3, no apparent distress and well nourished Constitutional Narrative: Elderly male, obese, sitting up in a chair at the bedside, watching television and eating breakfast, is at the bedside, appears comfortable, no longer appears toxic HEENT normocephalic, head/scalp atraumatic and hearing grossly normal bilaterally HEENT Narrative: Mallampati is 3, no thrush Resp normal respiratory effort, normal air movement, no retractions, no use of accessory muscles and clear to auscultation bilaterally Auscultation: Negative for rales, rhonchi or wheezes Cardio regular rate, regular rhythm, S1 normal heart sound, S2 normal heart sound, no murmurs, no rub, no gallops and no clicks GI normal to inspection, nondistended, normoactive bowel sounds, soft to palpation and non-tender Extremity no clubbing, cyanosis or edema Extremity Narrative: Radial and pedal pulses are 2+ Neuro oriented x3, moves all extremities and no focal motor deficits Speech: speech normal Psych affect normal Psych Narrative: Very pleasant, eye contact is good, patient interacts appropriately and affect is much improved since he is feeling better Assessment & Plan Assessment/Plan (1) Sepsis: QUALIFIERS: Sepsis type: sepsis due to unspecified organism S epsis acute organ dysfunction status: unspecified Qualified Code(s): A41.9 - Sepsis, unspecified organism (2) Urinary tract infection: (3) Elevated troponin I level: (4) Acute hypoxic respiratory failure: (5) Hypomagnesemia: (6) Hypokalemia: (7) Hypophosphatemia: (8) Lactic acidosis: (9) Elevated serum creatinine: PLAN: Plan Sepsis shock secondary to probable gram-negative bacteremia due to UTI -Patient meets sepsis criteria with marked lactic acidosis, altered mental status, acute respiratory failure, fever and a source -Meets criteria for shock with lactate greater than 4 -Currently on Levophed at 5 mcg/min -Continue Zosyn -Urine and blood cultures ar for gram-negative chavez-lactose flatwork finisher hand -No signs of obstruction on imaging -Continue monitoring in the ICU -Appreciate pulmonary/critical care involvement -Will need close outpatient follow-up with urology after discharge Acute hypoxic respiratory failure -Likely related to the above -No signs of volume overload at this time -Sats are now 96% on 2 L nasal cannula and lungs are clear at this time Elevated serum creatinine -Baseline creatinine is unknown as of recent -Creatinine on admission was 1.44 and now 1.33 -Continue to trend -Avoid nephrotoxins as able Elevated troponin -Suspect demand ischemia related to septic shock -Echocardiogram shows normal EF with no wall motion abnormality Lactic acidosis -Resolved Hypophosphatemia/hypomagnesemia/hypokalemia -Phosphorus and magnesium have been normalized -Potassium is still low at 3.1 -Replacement given with oral K -Repeat in a.m. Thrombocytopenia -Anticipate related to sepsis and possibly antibiotic use -Continue to monitor -Subcu Lovenox on hold until platelet count is above 75,000 -Repeat lab in a.m. Hyperbilirubinemia/mild transaminitis -Highly suspect related to septic shock -Continue to monitor periodically for trend Toxic/metabolic encephalopathy -Resolved Prostate cancer/BPH with obstruction -Once pressure stabilized we will start Flomax -Recently underwent radical prostatectomy -Encouraged outpatient follow-up Hypertension -Hold atenolol -Hold hydrochlorothiazide -Hold losartan -Reintroduce antihypertensives slowly once blood pressures allow hyperlipidemia -Continue home statin Obesity -BMI 33.4 -Recommend weight loss -Complicates treatment, prognosis, outcomes DVT prophylaxis -Platelet count continues to drop likely related to septic shock with no signs of DIC -Will hold enoxaparin until platelet count is greater than 75,000 -Add SCDs CODE STATUS -Full code Charges/Coding Visit Charges Inpatient E&M: 36374 Subs Hosp L2
[2023-09-14] MEDS: Metoprolol Tartrate 5 MG/5 ML Vial 2.5 MG IV (13:39)
[2023-09-14 13:45] LABS: Pathologist Review Reviewed
[2023-09-14] MEDS: HYDROmorphone 0.5 MG/0.5 ML SYRINGE IV (15:28)
[2023-09-14] MEDS: Digoxin 250 MCG/ML Ampul IV (18:38)
[2023-09-14] MEDS: Atorvastatin Calcium 10 MG Tablet PO (20:45)
[2023-09-15] VITALS (32 sets, daily range): BP systolic 86–130; BP diastolic 60–94; PULSE 96–115; RESP 12–36; TEMP 36.4–37.1; O2SAT 92–98; BMI 33.3
[2023-09-15] MEDS: MELATONIN 3 MG TABLET PO ×2 (00:30→23:43)
[2023-09-15] MEDS: Acetaminophen 325 MG Tablet 650 MG PO ×2 (01:02→06:30)
[2023-09-15] MEDS: Ondansetron 4 MG/2 ML Vial IV ×2 (04:15→12:31)
[2023-09-15] MEDS: 0.9% Saline Lock 10 ML Syringe IV ×2 (04:15→10:25)
[2023-09-15 04:17] LABS: Hematocrit 40.8 % (40-54); Hemoglobin 14.1 g/dL (13.0-16.5); Mean Corp Hgb Conc 34.6 g/dL (32-36); Mean Corpuscular Hgb 29.5 pg (27.0-32.0); Mean Corpuscular Volume 85.4 fL (80-94); POSITIVE COUNT YES; POSITIVE MORPHOLOGY YES; Red Blood Count 4.78 M/mm3 (4.6-6.2); White Blood Count 11.6 K/mm3 (4.4-11.0)
[2023-09-15 04:42] LABS: ALB/GLOB Ratio 0.8 RATIO (0.9-2.4); AST(SGOT) 90 U/L (15-37); Alanine Aminotransfer ALT/SGPT 122 U/L (16-61); Albumin, Serum 2.8 g/dL (3.2-5.0); Alkaline Phosphatase 92 U/L (45-117); Anion Gap 5 (5-15); BUN 14 mg/dL (7-18); BUN/Creat Ratio 17.1 RATIO (10-20); Calcium,Total 8.3 mg/dL (8.5-10.1); Chloride 108 mmol/L (98-107); Creatinine, Serum 0.82 mg/dL (0.70-1.30); EST Glomerular Filtration Rate 100 mL/min (>60); Est Glom Filt Rate - Afr Amer 121 mL/min (>60); Estimated Creatinine Clearance 105.92 ml/min; Globulin 3.3 g/dL (2.2-4.2); Glucose 110 mg/dL (74-106); Potassium 3.9 mmol/L (3.5-5.1); Protein, Total 6.1 g/dL (6.4-8.2); Sodium Level 136 mmol/L (136-145)
[2023-09-15 05:23] LABS: Differential Indicated MANUAL DIFF
[2023-09-15 05:26] LABS: Eosinophil 1 % (0-5); Lymphocyte 11 % (19-41); Metamyelocyte 1 % (0-1); Monocyte 1 % (0-10); Neutrophil-Band 13 % (0-5); Neutrophil-Segmented 73 % (47-70); Total Cells Counted 100 (MANUAL DIFF)
[2023-09-15 05:28] LABS: Platelet Estimate MKD DEC (ADEQ)
[2023-09-15 05:29] LABS: Anisocytosis 1+; Macrocytosis 2+
[2023-09-15 05:30] LABS: Absolute Lymphocyte Count 1.27 X10^3/uL (0.83-4.51); Differential Comment SCANNED
[2023-09-15 05:32] LABS: Platelet Count 49 K/mm3 (150-450)
[2023-09-15] MEDS: Piperacil/Tazobactam 3.375 GM in 0.9% Normal Saline (50mL MB+) 50 ML IV (06:30)
[2023-09-15] MEDS: Amiodarone 150 MG in Dextrose 5%-Water (100mL Bag) 100 ML 600 MG IV BOLUS (10:15)
[2023-09-15] MEDS: Ceftriaxone 2 GM in 0.9% Normal Saline (50mL MB+) 50 ML IV (10:21)
[2023-09-15] MEDS: Sertraline 100 MG Tablet PO (10:26)
[2023-09-15] MEDS: Amiodarone 360 MG in Dextrose 5% Viaflo Bag 192.8 ML 33.3 MG CONT INF (10:27)
--- NOTE | 2023-09-15 10:54 | PCM.PN.TICU ---
Objective Data Objective Data Vital Signs: Vital Signs Last response Temperature 37.0 C 09/15/23 01:00 Temperature Source Axillary 09/15/23 01:00 Pulse Rate 105 H 09/15/23 06:00 Pulse Strength Normal (2+) 09/14/23 21:03 Respiratory Rate 25 H 09/15/23 06:00 Respiratory Effort Normal, Non-Labored 09/15/23 04:00 Respiratory Depth Normal 09/15/23 04:00 Respiratory Pattern Normal 09/15/23 04:00 Blood Pressure 97/71 09/15/23 10:15 Blood Pressure Mean 79 09/15/23 10:15 Blood Pressure Source Monitor 09/15/23 06:00 Blood Pressure Position Supine 09/15/23 06:00 Blood Pressure Location Left Arm 09/15/23 06:00 Pulse Ox 96 09/15/23 06:00 Oxygen Delivery Method Room Air 09/15/23 09:33 Oxygen Flow Rate (L/min) 2 09/14/23 11:14 Fraction of Inspired Oxygen (FIO2) 50 09/13/23 22:00 I&O: I&O Last 24 Hours 09/14/23 09/14/23 09/15/23 11:59 23:59 11:59 Intake Total 582.86 / 705.23 120.47 / 705.23 53.8 / 53.8 Output Total 1350 / 3150 900 / 3150 1650 / 1650 Balance -767.14 / -2444.77 -779.53 / -2444.77 -1596.2 / -1596.2 I&O: Total Stay 09/13/23 01:27 thru 09/15/23 07:59 Intake Total 4475.4633 Output Total 6241 Balance 430.4633 Current Meds Ordered / Administered: Current meds ordered / Administered Generic Name Dose Route Start Last Admin Trade Name Freq PRN Reason Stop Dose Admin Acetaminophen 650 mg 09/13/23 06:13 09/15/23 06:30 Acetaminophen 325 Mg Tablet PO 650 mg Q4H PRN PRN Administration Pain 1-10 Or Fever>100.7 Atorvastatin Calcium 10 mg 09/13/23 22:00 09/14/23 20:45 Atorvastatin Calcium 10 Mg Tablet PO 10 mg 2200 MAYRA Administration Hydromorphone HCl 0.5 mg 09/13/23 14:53 09/14/23 15:28 Hydromorphone 0.5 Mg/0.5 Ml Syringe IV 0.5 mg Q4H PRN PRN Administration Pain Score 6-10 Norepinephrine Bitartrate 8 mg 250 mls @ 9.375 mls/hr 09/14/23 03:35 09/15/23 07:59 / Sodium Chloride CONT INF Infused .[id number] MAYRA Titration Protocol 5 MCG/MIN Ceftriaxone Sodium 2 gm/ 50 mls @ 100 mls/hr 09/15/23 10:00 09/15/23 10:21 Sodium Chloride IV 100 mls/hr Q24 MAYRA Administration Amiodarone HCl 360 mg/ 200 mls @ 33.333 mls/hr 09/15/23 08:30 09/15/23 10:27 Dextrose CONT INF 09/15/23 14:29 1 mg/min .Q6H MAYRA 33.3 mls/hr Administration 1 MG/MIN Amiodarone HCl 360 mg/ 200 mls @ 16.667 mls/hr 09/15/23 14:30 Dextrose CONT INF 09/16/23 08:29 .Q12H MAYRA 0.5 MG/MIN Amiodarone HCl 360 mg/ 200 mls @ 16.667 mls/hr 09/16/23 08:30 Dextrose CONT INF .Q12H MAYRA 0.5 MG/MIN Melatonin 3 mg 09/13/23 04:56 09/15/23 00:30 Melatonin 3 Mg Tablet PO 3 mg QHS PRN PRN Administration INSOMNIA Ondansetron HCl 4 mg 09/13/23 04:56 09/15/23 04:15 Ondansetron 4 Mg/2 Ml Vial IV 4 mg Q8H PRN PRN Administration NAUSEA/VOMITING Polyethylene Glycol 17 gm 09/14/23 17:05 Polyethylene Glycol 3350 17 Gm Packet PO BID PRN PRN Constipation Sertraline HCl 100 mg 09/13/23 10:00 09/15/23 10:26 Sertraline 100 Mg Tablet PO 100 mg DAILY MAYRA Administration Sodium Chloride 10 - 40 ml 09/13/23 06:28 09/15/23 10:25 0.9% Saline Lock 10 Ml Syringe IV 10 ml UD PRN Administration SALINE FLUSH Lab / Micro Data 09/15/23 04:00 09/15/23 04:00 Labs: Laboratory Results - last 24 hr 09/14/23 04:10: Diff Path Review Reviewed 09/15/23 04:00: WBC 11.6 H, RBC 4.78, Hgb 14.1, Hct 40.8, MCV 85.4, MCH 29.5, MCHC 34.6, RDW Std Deviation 44.0 H, RDW Coeff of Selin 14.0, Plt Count 49 L*, MPV 11.0, Neut % (Auto) Not Reportable, Absolute Neuts (auto) 10.0 H, Absolute Lymphs (auto) 1.27, Total Counted 100, Neutrophils % (Manual) 73 H, Band Neutrophils % 13 H, Lymphocytes % (Manual) 11 L, Monocytes % (Manual) 1, Eosinophils % (Manual) 1, Metamyelocytes % 1, Differential Comment SCANNED, Diff Path Review September, Platelet Estimate MKD DEC, Anisocytosis 1+, Macrocytosis 2+, Sodium 136, Potassium 3.9, Chloride 108 H, Carbon Dioxide 23.0, Anion Gap 5, BUN 14, Creatinine 0.82, Estim Creat Clear Calc 105.92, Est GFR (MDRD) Af Amer 121, Est GFR (MDRD) Non-Af 100, BUN/Creatinine Ratio 17.1, Glucose 110 H, Calcium 8.3 L, Total Bilirubin 1.70 H, AST 90 H, ALT 122 H, Alkaline Phosphatase 92, Total Protein 6.1 L, Albumin 2.8 L, Globulin 3.3, Albumin/Globulin Ratio 0.8 L Micro: Microbiology 09/13/23 02:00 Urine Catheter - Gonzales Urine Culture - Final Klebsiella pneumoniae sp pneum 09/13/23 01:30 Blood Culture (Wb) - Anticubital Right Blood Culture - Final Klebsiella pneumoniae sp pneum 09/13/23 01:35 Blood Culture (Wb) - Left Forearm 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 Assessment and plan: Critical Care Time: The entirety of this encounter was done via Telemedicine Subjective Subjective Telemedicine Pulmonary/ICU Progress Note Brief summary: 67-year-old male, with a history as outlined below, who presented to the emergency department via EMS on September 12 with altered mentation, fevers and chills. The patient reported that approximately 7 weeks ago he underwent a radical prostatectomy at [facility]. He did have a urinary tract infection following that procedure which was treated with outpatient antibiotics, with subsequent improvement. The patient currently denies any abdominal pain, dysuria, urgency or frequency. He does not utilize supplemental oxygen at his baseline. He does not endorse any pre-existing pulmonary conditions. He has never been diagnosed with obstructive sleep apnea. In the ED noted to be febrile, tachycardic and tachypneic. He was initially hemodynamically stable. Laboratory evaluation was notable for acute kidney injury with a creatinine of 1.4 and lactate of 6.3. Troponin was elevated at 717 with a normal BNP. Urine analysis was notable for leukocyte esterase, nitrates and 3+ urine bacteria. CT abdomen/pelvis was unremarkable. Head CT demonstrated no acute intracranial process. The patient's most recent chest imaging study demonstrated a mild degree of pulmonary vascular congestion. The patient was initially ordered to receive IV fluids and antimicrobials. He was admitted to the progressive care unit. However, the patient ultimately developed hypotension, which necessitated transfer to the medical intensive care unit. S: Pt seen and examined. Reports feeling much better overall. Gonzales catheter removed earlier. Eating/drinking well. Mobilizing. Off NEpi since midnight but is currently on amio gtt due to AF. Amio @ 0.5 PE: General: Well developed, in no distress HEENT: anicteric Sclera, nl nose; supple neck, no masses Cardiovascular: irreg; +S1/S2; No rubs, gallops; no displaced PM Respiratory: diminished; no crackles, wheezes, or rhonchi Abdominal: Non-tender; Non distended; hypoBS x 4; No Hepatosplenomegaly Extremities: Warm, well perfused; No clubbing, cyanosis; capillary refill < 2 sec Skin: intact, no rashes Neurological: no gross deficits appreciated A/P: #Acute hypoxemic respiratory failure: ?pulm edema 2* volum resuscitation vs other; cont weaning O2 to keep sats ~90%; encourage mobilization/IS use; will trial gentle diuresis today #Gram-negative septic shock: sp NEpi to keep MAP > 65; cont Abx; repeat BCx today to document clearance given recurrent UTIs since procedure #Acute kidney injury: cont monitoring renal function; strict I/Os #Hypokalemia: cont replacement as indicated #AF/Flutter RVR: appears new onset; cont amio gtt #Recent history of radical prostatectomy/obesity/hypertension/hyperlipidemia: cont supportive management; F/U outpatient urologist Leonard Guerra MD CCT: 50 min Entirety of encounter done via telemedicine
[2023-09-15 11:05] LABS: International Normalized Ratio 0.9; Partial Thromboplast Time 26.6 Seconds (24.1-36.2); Prothrombin Time (Protime)PT. 12.5 SECONDS (11.7-14.9)
[2023-09-15 11:08] LABS: Fibrinogen 538 mg/dl (203-444)
[2023-09-15 11:12] LABS: D-Dimer Quantitative (DVT/PE) > 20.00 FEU/ug/m (0.27-0.49)
--- NOTE | 2023-09-15 11:36 | ART_ITS ---
Reason For Study: Cyanosis in fingers Procedure A bilateral upper extremity continuous wave Doppler with analog waveform analysis and segmental pressures. Left Segmental Pressures Left brachial= 120mmHg. Left ulnar= 156mmHg. Left radial= 150mmHg. Left digit = 120 mmHg. The left radial waveforms are triphasic. The left ulnar waveforms are triphasic. Right Segmental Pressures Right ulnar= 155mmHg. Right radial= 149mmHg. Right digit = 127 mmHg. The right radial waveforms are triphasic. The right ulnar waveforms are triphasic. Indices The right wrist-brachial index by the ulnar artery is 1.29. The right wrist-brachial index by the radial artery is 1.24. The right digital-brachial index is 1.06. The left wrist-brachial index by the ulnar artery is 1.30. The leftt wrist-brachial index by the radial artery is 1.25. The left digital-brachial index is 1.00. VL/Upper Extremity Arterial Study Interpretation Summary Right wrist-brachial index 1.29, normal. Digit index and Doppler/PVR waveforms of the right arm normal at rest. Left wrist-brachial index 1.3, normal. Digit index and Doppler/PVR waveforms of the left arm normal at rest. Ordering Physician: Leonard Guerra Referring Physician: Garry Moran Performed By: Melissa Haywood RVT
--- NOTE | 2023-09-15 11:40 | VDLE_ITS ---
Reason For Study: Elevated D-dimer RIGHT LEFT GSV is normal. GSV is normal. CFV is compressible, spontaneous, phasic, CFV is compressible, spontaneous, phasic, competent and demonstrates normal competent, and demonstrates normal augmentation. augmentation. FV is compressible, spontaneous, phasic, FV is compressible, spontaneous, phasic, competent and demonstrates normal competent and demonstrates normal augmentation. augmentation. POP V is compressible, spontaneous, phasic, POP V is compressible, spontaneous, phasic, competent and demonstrates normal competent and demonstrates normal augmentation. augmentation. T/P Trunk is compressible. T/P Trunk is compressible. PTV is compressible. PTV is compressible. RT PerV is compressible. LT PerV is compressible. Procedure This is a venous duplex using B-mode, color flow and spectral Doppler. Exam performed portable in patient room. A preliminary report was called and/or faxed to [facility]. VL/Venous Duplex US - Porfirio Extrem Interpretation Summary Deep veins of the bilateral lower extremities are patent and compressible segme ntally. There is no evidence of bilateral lower extremity deep vein thrombosis. The bilateral great saphenous veins appear patent and compressible segmentally. Ordering Physician: Claire Arias Referring Physician: Garry Moran Performed By: Melissa Haywood RVT
--- NOTE | 2023-09-15 11:40 | CT_ITS ---
STUDY: CTA CHEST REASON FOR EXAM: Male, 67 years old. Elevated d-dimer RADIATION DOSAGE (If Supplied By Facility): CTDIvol = ( 11.42 ) mGy, DLP = ( 536.11 ) mGycm TECHNIQUE: The examination was performed with the intravenous administration of IV 100mL Isovue-370. Post-processing of the angiographic images was performed, with multiplanar reformation and 3D reconstruction. Individualized dose optimization techniques were used for this CT. COMPARISON: Chest x-ray September 13, 2023 FINDINGS: PICC on the right extends to the right atrium. Normal enhancement of the main pulmonary artery and right and left pulmonary arteries. Normal enhancement of the bilateral peripheral pulmonary arteries. There is no demonstrated pulmonary embolism. There is atherosclerotic calcification of the aortic arch with tortuosity. There is no demonstrated aortic dissection. There are calcifications of the coronary arteries. Normal mediastinum. Normal hilar regions. Normal visualized trachea and bronchi. The lungs are well expanded. There is lower lung atelectasis. Normal pleura. Normal chest wall structures. There are degenerative changes of thoracic spine. Normal visualized upper abdomen. CT/CTA Chest W/WO Contrast IMPRESSION: CTA chest examination, without a demonstrated pulmonary embolism or arterial dissection. Electronically Signed: Arnold Goncalves MD at 13:11 EDT ,
--- NOTE | 2023-09-15 12:29 | PCM.PN.HOSP ---
Reason for Visit Reason for Visit: Fever/chills/confusion Subjective Subjective Patient states he is feeling much better today. Nurse was concerned because his fingers have been a little bit dusky however they do appear to be improving as she applies heat to them. We were concerned that maybe there be a circulation problem with the use of the Levophed however with the improvement with just warmth my suspicion for this decreases. Objective Data Objective Data Vital Signs: Vital Signs Temp Pulse Resp BP Pulse Ox O2 Del Method O2 Flow Rate 98.7 F 103 H 27 H 115/89 H 97 Room Air 2 09/15/23 08:30 09/15/23 11:00 09/15/23 11:00 09/15/23 11:00 09/15/23 11:00 09/15/23 11:00 09/14/23 11:14 FiO2 50 09/13/23 22:00 Oxygen Flow Rate (L/min) 2 Oxygen Delivery Method Room Air Weight: 102.4 kg Body Mass Index (BMI) 33.3 Intake & Output: Intake and Output for Last 24 Hours 09/13/23 09/14/23 09/15/23 23:59 23:59 23:59 Intake Total 5948.3333 / 5948.3333 703.33 / 705.23 53.8 / 53.8 Output Total 2375 / 2375 2250 / 3150 1650 / 1650 Balance 3573.3333 / 3573.3333 -1546.67 / -2444.77 -1596.2 / -1596.2 Lab / Micro Data 09/15/23 04:00 09/15/23 04:00 Labs: Laboratory Results - last 24 hr 09/14/23 04:10: Diff Path Review Reviewed 09/15/23 04:00: WBC 11.6 H, RBC 4.78, Hgb 14.1, Hct 40.8, MCV 85.4, MCH 29.5, MCHC 34.6, RDW Std Deviation 44.0 H, RDW Coeff of Selin 14.0, Plt Count 49 L*, MPV 11.0, Neut % (Auto) Not Reportable, Absolute Neuts (auto) 10.0 H, Absolute Lymphs (auto) 1.27, Total Counted 100, Neutrophils % (Manual) 73 H, Band Neutrophils % 13 H, Lymphocytes % (Manual) 11 L, Monocytes % (Manual) 1, Eosinophils % (Manual) 1, Metamyelocytes % 1, Differential Comment SCANNED, Diff Path Review May foll, Platelet Estimate MKD DEC, Anisocytosis 1+, Macrocytosis 2+, Sodium 136, Potassium 3.9, Chloride 108 H, Carbon Dioxide 23.0, Anion Gap 5, BUN 14, Creatinine 0.82, Estim Creat Clear Calc 105.92, Est GFR (MDRD) Af Amer 121, Est GFR (MDRD) Non-Af 100, BUN/Creatinine Ratio 17.1, Glucose 110 H, Calcium 8.3 L, Total Bilirubin 1.70 H, AST 90 H, ALT 122 H, Alkaline Phosphatase 92, Total Protein 6.1 L, Albumin 2.8 L, Globulin 3.3, Albumin/Globulin Ratio 0.8 L 09/15/23 10:00: PT 12.5, INR 0.9, APTT 26.6, Fibrinogen 538 H, D-Dimer Quant (PE/DVT) > 20.00 H* Micro: Microbiology 09/13/23 02:00 Urine Catheter - Gonzales Urine Culture - Final Klebsiella pneumoniae sp pneum 09/13/23 01:30 Blood Culture (Wb) - Anticubital Right Blood Culture - Final Klebsiella pneumoniae sp pneum 09/13/23 01:35 Blood Culture (Wb) - Left Forearm 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 09/13/23 01:58 Mucosa - Nose SARS-CoV-2, Influenza & RSV (PCR) - Final Physical Exam Const alert, oriented x3, no apparent distress and well nourished Constitutional Narrative: Elderly male, obese, sitting up in a chair at the bedside, is at the bedside, appears comfortable, appears nontoxic, at bedside HEENT normocephalic, head/scalp atraumatic and hearing grossly normal bilaterally HEENT Narrative: Mallampati 3, no thrush Eyes PERRL, EOMs intact bilaterally and conjunctivae normal Neck no lymphadenopathy and supple Resp normal respiratory effort, normal air movement, no retractions, no use of accessory muscles and clear to auscultation bilaterally Auscultation: Negative for rales, rhonchi or wheezes Cardio regular rate, regular rhythm, S1 normal heart sound, S2 normal heart sound, no murmurs, no rub, no gallops, no clicks and peripheral pulses 2+ throughout GI normal to inspection, nondistended, normoactive bowel sounds, soft to palpation and non-tender Extremity no clubbing, cyanosis or edema Extremity Narrative: Radial and pedal pulses are 2+, distal fingers are slightly erythematous but no purple hue noted, radial pulses are 2+ and bounding, cap refill is good Skin skin turgor normal, no jaundice, no petechiae and no mottling Neuro oriented x3, moves all extremities and no focal motor deficits Speech: speech normal Psych affect normal Psych Narrative: Very pleasant, eye contact is good, patient interacts appropriately Assessment & Plan Assessment/Plan (1) Sepsis: QUALIFIERS: Sepsis type: sepsis due to unspecified organism Sepsis acute organ dysfunction status: unspecified Qualified Code(s): A41.9 - Sepsis, unspecified organism (2) Urinary tract infection: (3) Elevated troponin I level: (4) Acute hypoxic respiratory failure: (5) Hypomagnesemia: (6) Hypokalemia: (7) Hypophosphatemia: (8) Lactic acidosis: (9) Elevated serum creatinine: PLAN: Plan Sepsis shock secondary to probable gram-negative bacteremia due to UTI -Patient meets sepsis criteria with marked lactic acidosis, altered mental status, acute respiratory failure, fever and a source -Met criteria for shock with lactate greater than 4 and ultimately required pressors -Off pressors for about 8 hours -Blood and urine cultures both positive for Klebsiella pneumonia that is resistant to ampicillin and Unasyn but sensitive to Zosyn -Will narrow to ceftriaxone 2 g daily and would treat for total of 14 days as this is a complicated UTI with concomitant bacteremia Day 3 of 14 -No signs of obstruction on imaging -Continue monitoring in the ICU -Appreciate pulmonary/critical care involvement -Will need close outpatient follow-up with urology after discharge Acute hypoxic respiratory failure -Resolved -Now on room air New onset A-fib with RVR -Did not respond to IV metoprolol or digoxin -Amiodarone bolus with drip initiated in hopes of cardioversion -Has been in A-fib less than 24 hours -Unable to anticoagulate due to thrombocytopenia with a platelet count of 49,000 -Consider anticoagulation once platelets are above 100,000 if A-fib persists -TSH on admission was 0.51 -Echocardiogram is already been performed and shows normal EF and no significant structural abnormalities -Highly suspect this is related to sepsis and hopefully will cardiovert -If he does would recommend outpatient event monitor at discharge to ensure he is not having atrial fibrillation as an outpatient that requires anticoagulation and rate control JUSTIN -Baseline creatinine is unknown as of recent -Creatinine on admission was 1.44 and now down to 0.82 and this difference meets criteria for JUSTIN -Continue to trend -Avoid nephrotoxins as able Elevated troponin -Suspect demand ischemia related to septic shock -Echocardiogram shows normal EF with no wall motion abnormality Hypophosphatemia/hypomagnesemia/hypokalemia -Resolved Thrombocytopenia -Anticipate related to sepsis and possibly antibiotic use -Checked D-dimer/fibrinogen/coags -D-dimer was elevated however fibrinogen was also elevated with normal coags so this argues against DIC -With elevated D-dimer will check CTA of the chest as well as lower extremity Dopplers to rule out clot however anticoagulation is contraindicated at this time and if there is a large clot burden he may need consideration for IVC filter -Continue to monitor -Subcu Lovenox on hold until platelet count is above 75,000 -Repeat lab in a.m. Hyperbilirubinemia/mild transaminitis -Trending down with resolution of his shock and sepsis Toxic/metabolic encephalopathy -Resolved Prostate cancer/BPH with obstruction -Once pressure stabilized we will start Flomax -Recently underwent radical prostatectomy -Encouraged outpatient follow-up Hypertension -Hold atenolol -Hold hydrochlorothiazide -Hold losartan -Reintroduce antihypertensives slowly once blood pressures allow hyperlipidemia -Continue home statin Obesity -BMI 33.3 -Recommend weight loss -Complicates treatment, prognosis, outcomes DVT prophylaxis -Platelet count continues to drop likely related to septic shock with no signs of DIC -Will hold enoxaparin until platelet count is greater than 75,000 -Continue SCDs CODE STATUS -Full code Charges/Coding Visit Charges Inpatient E&M: 03723 Subs Hosp L2
[2023-09-15] MEDS: Furosemide 40 MG/4 ML Vial IV (13:48)
[2023-09-15] MEDS: LORazepam 0.5 MG Tablet PO ×2 (16:30→21:02)
[2023-09-15] MEDS: Amiodarone 360 MG in Dextrose 5% Viaflo Bag 192.8 ML 16.7 MG CONT INF (17:28)
[2023-09-15] MEDS: Potassium Chloride Oral Tablet 20 MEQ 40 MEQ PO (17:30)
[2023-09-15] MEDS: Atorvastatin Calcium 10 MG Tablet PO (21:01)
[2023-09-16] VITALS (21 sets, daily range): BP systolic 102–150; BP diastolic 52–102; PULSE 92–122; RESP 14–28; TEMP 36.4–37; O2SAT 93–98; BMI 31.8
[2023-09-16 04:01] LABS: Absolute Lymphocyte Count 1.07 X10^3/uL (0.83-4.51); Absolute Neutrophil Count 11.4 X10^3/uL (2.0-7.7); Basophil# 0.06 X10^3/uL; Basophil% 0.5 % (0-1); Eosinophil# 0.02 X10^3/uL; Eosinophils% 0.2 % (0-5); Hematocrit 40.2 % (40-54); Lymphocyte # 1.07 X10^3/ul (0.83-4.51); Lymphocyte % 8.2 % (19-41); Mean Corp Hgb Conc 34.8 g/dL (32-36); Mean Corpuscular Hgb 29.4 pg (27.0-32.0); Mean Corpuscular Volume 84.5 fL (80-94); Mean Platelet Vol. 10.7 fl (6.2-12.0); Monocyte# 0.51 X10^3/uL; Monocyte% 3.9 % (0-10); NRBC Flagged by Analyzer 0 % (0-5); Neutrophil # 11.35 X10^3/uL (2.7-7.7); Neutrophil % 86.7 % (47-70); POSITIVE COUNT YES; Platelet Count 55 K/mm3 (150-450); RBC Distribution Width CV 13.6 % (11.6-14.6); RBC Distribution Width SD 42.4 fl (35.1-43.9); Red Blood Count 4.76 M/mm3 (4.6-6.2); White Blood Count 13.1 K/mm3 (4.4-11.0)
[2023-09-16 04:19] LABS: ALB/GLOB Ratio 0.8 RATIO (0.9-2.4); AST(SGOT) 61 U/L (15-37); Alanine Aminotransfer ALT/SGPT 96 U/L (16-61); Albumin, Serum 2.9 g/dL (3.2-5.0); Alkaline Phosphatase 152 U/L (45-117); Anion Gap 6 (5-15); BUN 12 mg/dL (7-18); BUN/Creat Ratio 14.8 RATIO (10-20); Calcium,Total 8.8 mg/dL (8.5-10.1); Chloride 102 mmol/L (98-107); Creatinine, Serum 0.81 mg/dL (0.70-1.30); EST Glomerular Filtration Rate 102 mL/min (>60); Est Glom Filt Rate - Afr Amer 123 mL/min (>60); Estimated Creatinine Clearance 107.23 ml/min; Globulin 3.6 g/dL (2.2-4.2); Glucose 109 mg/dL (74-106); Magnesium 1.7 mg/dL (1.6-2.6); Potassium 3.2 mmol/L (3.5-5.1); Protein, Total 6.5 g/dL (6.4-8.2); Sodium Level 134 mmol/L (136-145)
[2023-09-16] MEDS: Amiodarone 360 MG in Dextrose 5% Viaflo Bag 192.8 ML 16.7 MG CONT INF (05:32)
--- NOTE | 2023-09-16 06:54 | PN.HOSP_ITS ---
Reason for Visit Reason for Visit: Fever/chills/confusion Subjective Subjective Patient states he is feeling so much better. Has not required pressors in 24 hours. Still in A-fib but rate control is much better. States he is having some minimal intermittent hallucinations that seem to be improving. He states has had these before postsurgical and when has been ill. Objective Data Objective Data Vital Signs: Vital Signs Temp Pulse Resp BP Pulse Ox O2 Del Method O2 Flow Rate 98 F 95 14 122/90 H 93 Room Air 2 09/16/23 06:00 09/16/23 06:00 09/16/23 06:00 09/16/23 06:00 09/16/23 06:00 09/16/23 06:00 09/14/23 11:14 FiO2 50 09/13/23 22:00 Oxygen Flow Rate (L/min) 2 Oxygen Delivery Method Room Air Weight: 97.7 kg Body Mass Index (BMI) 31.8 Intake & Output: Intake and Output for Last 24 Hours 09/14/23 09/15/23 09/16/23 23:59 23:59 23:59 Intake Total 703.33 / 705.23 1106.8 / 1456.8 1150 / 1150 Output Total 2250 / 3150 4425 / 4725 700 / 700 Balance -1546.67 / -2444.77 -3318.2 / -3268.2 450 / 450 Lab / Micro Data 09/16/23 03:40 09/16/23 03:40 Labs: Laboratory Results - last 24 hr 09/15/23 10:00: PT 12.5, INR 0.9, APTT 26.6, Fibrinogen 538 H, D-Dimer Quant (PE/DVT) > 20.00 H* 09/16/23 03:40: WBC 13.1 H, RBC 4.76, Hgb 14.0, Hct 40.2, MCV 84.5, MCH 29.4, MCHC 34.8, RDW Std Deviation 42.4, RDW Coeff of Selin 13.6, Plt Count 55 L, MPV 10.7, Immature Gran % (Auto) 0.500, Neut % (Auto) 86.7 H, Lymph % (Auto) 8.2 L, [place] % (Auto) 3.9, Eos % (Auto) 0.2, Baso % (Auto) 0.5, Absolute Neuts (auto) 11.4 H, Absolute Lymphs (auto) 1.07, Nucleated RBC % 0, Sodium 134 L, Potassium 3.2 L, Chloride 102, Carbon Dioxide 26.0, Anion Gap 6, BUN 12, Creatinine 0.81, Estim Creat Clear Calc 107.23, Est GFR (MDRD) Af Amer 123, Est GFR (MDRD) Non-Af 102, BUN/Creatinine Ratio 14.8, Glucose 109 H, Calcium 8.8, Phosphorus 2.0 L, Magnesium 1.7, Total Bilirubin 1.60 H, AST 61 H, ALT 96 H, Alkaline Phosphatase 152 H, Total Protein 6.5, Albumin 2.9 L, Globulin 3.6, Albumin/Globulin Ratio 0.8 L Micro: Microbiology 09/13/23 02:00 Urine Catheter - Gonzales Urine Culture - Final Klebsiella pneumoniae sp pneum 09/13/23 01:30 Blood Culture (Wb) - Anticubital Right Blood Culture - Final Klebsiella pneumoniae sp pneum 09/13/23 01:35 Blood Culture (Wb) - Left Forearm Blood Culture - 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 Electronically Signed: Arnold Goncalves MD at 13:11 EDT Reading Location ID and State: [address] [place] [address] , Service support , Physical Exam Const alert, oriented x3, no apparent distress and well nourished Constitutional Narrative: Elderly male, obese, sitting up in a chair at the bedside, patient reclining in watching television, starts to fall asleep at the end of our conversation, appears comfortable, appears nontoxic HEENT normocephalic, head/scalp atraumatic and hearing grossly normal bilaterally HEENT Narrative: Mallampati 3, no thrush Resp normal respiratory effort, no retractions, no use of accessory muscles and clear to auscultation bilaterally Auscultation: Negative for rales, rhonchi or wheezes Cardio regular rhythm, S1 normal heart sound, S2 normal heart sound, no murmurs, no rub, no gallops and no clicks Cardio Narrative: Irregularly irregular rhythm with regular rate GI normal to inspection, nondistended, normoactive bowel sounds, soft to palpation, non-tender and non-distended Extremity Extremity Narrative: No clubbing or cyanosis, fingers appear improved from yesterday, trace edema from volume resuscitation however improved from yesterday with diuresis Neuro oriented x3, moves all extremities and no focal motor deficits Speech: speech normal Psych affect normal Psych Narrative: Very pleasant, eye contact is good, patient interacts appropriately Assessment & Plan Assessment/Plan (1) Sepsis: QUALIFIERS: Sepsis type: sepsis due to unspecified organism Sepsis acute organ dysfunction status: unspecified Qualified Code(s): A41.9 - Sepsis, unspecified organism (2) Urinary tract infection: (3) Elevated troponin I level: (4) Acute hypoxic respiratory failure: (5) Hypomagnesemia: (6) Hypokalemia: (7) Hypophosphatemia: (8) Lactic acidosis: (9) Elevated serum creatinine: PLAN: Plan Sepsis shock secondary to Klebsiella pneumoniae bacteremia due to UTI -Patient meets sepsis criteria with marked lactic acidosis, altered mental status, acute respiratory failure, fever and a source -Met criteria for shock with lactate greater than 4 and ultimately required pressors -Off pressors for about >24 hours -Blood and urine cultures both positive for Klebsiella pneumoniae that is resistant to ampicillin and Unasyn but sensitive to Zosyn -Continue ceftriaxone 2 g daily-anibiotics will narrow on 09/15/2023 Day 4 -No signs of obstruction on imaging -Appreciate pulmonary/critical care involvement -Will need close outpatient follow-up with urology after discharge -Transfer out of the ICU Acute hypoxic respiratory failure -Resolved -Now on room air New onset A-fib with RVR -Heart rates are better on amiodarone drip however patient still remains in A- fib -Will been in A-fib for 48 hours today -Unable to anticoagulate due to thrombocytopenia with a platelet count of 55,000 -Consider anticoagulation once platelets are above 75 to 100,000 if A-fib persists -TSH on admission was 0.51 -Echocardiogram is already been performed and shows normal EF and no significant structural abnormalities -Highly suspect this is related to his sepsis however he is still in A-fib--> patient with no known history -Cardiology consultation for assistance in management since he has been persistent JUSTIN -Resolved Elevated troponin -Suspect demand ischemia related to septic shock -Echocardiogram shows normal EF with no wall motion abnormality -Would recommend outpatient cardiology follow-up for stress testing once he is medically stable Hypophosphatemia/hypomagnesemia/hypokalemia -Patient with recurrent hypokalemia and hypophosphatemia today -40 mmol of K-Phos given -Repeat lab in a.m. Thrombocytopenia -Likely related to sepsis -D-dimer elevated however fibrinogen is also elevated and coags are normal which is not consistent with DIC -Platelet counts are starting to recover -Sandeep was 49,000 -Subcu Lovenox on hold until platelet count is above 75,000 -Repeat lab in a.m. Elevated D-dimer -Likely related to infection -CTA was negative for PE -Lower extremity Dopplers are pending Hyperbilirubinemia/mild transaminitis -Continues to improve -No further need to follow Toxic/metabolic encephalopathy -Resolved -Patient having intermittent hallucinations however he states these are improving and he does have a history of these when he has been ill or postoperatively Prostate cancer/BPH with obstruction -Recently underwent radical prostatectomy -Encouraged outpatient follow-up -Flomax has been on his med list however no longer verified so we will not start -Postvoid bladder scan was performed and was significant for only 2 cc Hypertension -Hold atenolol -Hold hydrochlorothiazide -Hold losartan -Reintroduce antihypertensives slowly once blood pressures allow hyperlipidemia -Continue home statin Nocturnal hypoxia/apnea -Highly suspect patient has obstructive sleep apnea -Discussed with both he and his and have recommended outpatient polysomnography after discharge -Referral placed on discharge instructions Obesity -BMI 33.3 -Recommend weight loss -Complicates treatment, prognosis, outcomes DVT prophylaxis -Platelet count continues to drop likely related to septic shock with no signs of DIC -Will hold enoxaparin until platelet count is greater than 75,000 -Continue SCDs CODE STATUS -Full code Charges/Coding Visit Charges Inpatient E&M: 75539 Subs Hosp L3
[2023-09-16] MEDS: Potassium Phosphate 40 MM in 0.9% Normal Saline (500mL Bag) 500 ML 62.5 MM IV (08:32)
--- NOTE | 2023-09-16 09:38 | PN.HOSP_ITS ---
Reason for Visit Reason for Visit: Diagnoses Sepsis, unspecified organism (09/13/23) Other disorders of phosphorus metabolism (09/13/23) Hypomagnesemia (09/13/23) Acidosis, unspecified (09/13/23) Hypokalemia (09/13/23) Acute respiratory failure with hypoxia (09/13/23) Urinary tract infection, site not specified (09/13/23) Other specified abnormal findings of blood chemistry (09/13/23) Subjective Subjective Patient has no complaints at this time. He states he is feeling much better than he did previously. He reports he still being some very intermittent hallucinations which she has had previously with infections and hospitalizations as well as postoperatively. No complaints at this time other than being sleepy. Urinating well with Gonzales removal and no significant residual on bladder scan. Objective Data Objective Data Vital Signs: Vital Signs Temp Pulse Resp BP Pulse Ox O2 Del Method O2 Flow Rate 98 F 95 14 122/90 H 93 Room Air 2 09/16/23 06:00 09/16/23 06:00 09/16/23 06:00 09/16/23 06:00 09/16/23 06:00 09/16/23 06:00 09/14/23 11:14 FiO2 50 09/13/23 22:00 Oxygen Flow Rate (L/min) 2 Oxygen Delivery Method Room Air Weight: 97.7 kg Body Mass Index (BMI) 31.8 Intake & Output: Intake and Output for Last 24 Hours 09/14/23 09/15/23 09/16/23 23:59 23:59 23:59 Intake Total 703.33 / 705.23 1106.8 / 1456.8 1200.38 / 1200.38 Output Total 2250 / 3150 4425 / 4725 700 / 700 Balance -1546.67 / -2444.77 -3318.2 / -3268.2 500.38 / 500.38 Lab / Micro Data 09/16/23 03:40 09/16/23 03:40 Labs: Laboratory Results - last 24 hr 09/15/23 10:00: PT 12.5, INR 0.9, APTT 26.6, Fibrinogen 538 H, D-Dimer Quant (PE/DVT) > 20.00 H* 09/16/23 03:40: WBC 13.1 H, RBC 4.76, Hgb 14.0, Hct 40.2, MCV 84.5, MCH 29.4, MCHC 34.8, RDW Std Deviation 42.4, RDW Coeff of Selin 13.6, Plt Count 55 L, MPV 10.7, Immature Gran % (Auto) 0.500, Neut % (Auto) 86.7 H, Lymph % (Auto) 8.2 L, [place] % (Auto) 3.9, Eos % (Auto) 0.2, Baso % (Auto) 0.5, Absolute Neuts (auto) 11.4 H, Absolute Lymphs (auto) 1.07, Nucleated RBC % 0, Sodium 134 L, Potassium 3.2 L, Chloride 102, Carbon Dioxide 26.0, Anion Gap 6, BUN 12, Creatinine 0.81, Estim Creat Clear Calc 107.23, Est GFR (MDRD) Af Amer 123, Est GFR (MDRD) Non-Af 102, BUN/Creatinine Ratio 14.8, Glucose 109 H, Calcium 8.8, Phosphorus 2.0 L, Magnesium 1.7, Total Bilirubin 1.60 H, AST 61 H, ALT 96 H, Alkaline Phosphatase 152 H, Total Protein 6.5, Albumin 2.9 L, Globulin 3.6, Albumin/Globulin Ratio 0.8 L Micro: Microbiology 09/13/23 02:00 Urine Catheter - Gonzales Urine Culture - Final Klebsiella pneumoniae sp pneum 09/13/23 01:30 Blood Culture (Wb) - Anticubital Right Blood Culture - Final Klebsiella pneumoniae sp pneum 09/13/23 01:35 Blood Culture (Wb) - Left Forearm Blood Culture - 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 Electronically Signed: Arnold Goncalves MD at 13:11 EDT , Physical Exam Const alert, oriented x3, no apparent distress and well nourished Constitutional Narrative: Elderly male, obese, sitting up in a chair at the bedside, patient reclining in watching television, starts to fall asleep at the end of our conversation, appears comfortable, appears nontoxic HEENT normocephalic, head/scalp atraumatic and hearing grossly normal bilaterally HEENT Narrative: Mallampati 3, no thrush Resp normal respiratory effort, normal air movement, no retractions, no use of accessory muscles and clear to auscultation bilaterally Auscultation: Negative for rales, rhonchi or wheezes Cardio regular rate, regular rhythm, S1 normal heart sound, S2 normal heart sound, no murmurs, no rub, no gallops and no clicks Cardio Narrative: Irregularly irregular rhythm with regular rate GI normal to inspection, nondistended, normoactive bowel sounds, soft to palpation and non-tender Extremity normal to inspection, full ROM, no clubbing, cyanosis or edema and no pedal edema Extremity Narrative: No clubbing or cyanosis, fingers appear improved from yesterday, trace edema from volume resuscitation however improved from yesterday with diuresis Skin no rashes or lesions noted, skin turgor normal, no jaundice, no petechiae and no mottling Neuro oriented x3, moves all extremities and no focal motor deficits Speech: speech normal Psych affect normal Psych Narrative: Very pleasant, eye contact is good, patient interacts appropriately Assessment & Plan Assessment/Plan (1) Sepsis: QUALIFIERS: Sepsis type: sepsis due to unspecified organism Sepsis acute organ dysfunction status: unspecified Qualified Code(s): A41.9 - Sepsis, unspecified organism (2) Urinary tract infection: (3) Elevated troponin I level: (4) Acute hypoxic respiratory failure: (5) Hypomagnesemia: (6) Hypokalemia: (7) Hypophosphatemia: (8) Lactic acidosis: (9) Elevated serum creatinine: PLAN: Plan Sepsis shock secondary to Klebsiella pneumoniae bacteremia due to UTI -Patient meets sepsis criteria with marked lactic acidosis, altered mental status, acute respiratory failure, fever and a source -Met criteria for shock with lactate greater than 4 and ultimately required pressors -Off pressors for about >24 hours -Blood and urine cultures both positive for Klebsiella pneumoniae that is resistant to ampicillin and Unasyn but sensitive to Zosyn -Continue ceftriaxone 2 g daily-anibiotics narrowed on 09/15/2023 Day 4 of 14 -No signs of obstruction on imaging -Appreciate pulmonary/critical care involvement -Will need close outpatient follow-up with urology after discharge -Transfer out of the ICU New onset A-fib with RVR -Heart rates are better on amiodarone drip however patient still remains in A- fib -Will been in A-fib for 48 hours today -Unable to anticoagulate due to thrombocytopenia with a platelet count of 55,000 -Consider anticoagulation once platelets are above 75 to 100,000 if A-fib persists -TSH on admission was 0.51 -Echocardiogram is already been performed and shows normal EF and no significant structural abnormalities -Highly suspect this is related to his sepsis however he is still in A-fib--> patient with no known history -Cardiology consultation for assistance in management since he has been persistent Elevated troponin -Suspect demand ischemia related to septic shock -Echocardiogram shows normal EF with no wall motion abnormality -Would recommend outpatient cardiology follow-up for stress testing once he is medically stable Hypophosphatemia/hypomagnesemia/hypokalemia -Patient with recurrent hypokalemia and hypophosphatemia today -40 mmol of K-Phos given -Repeat lab in a.m. Thrombocytopenia -Likely related to sepsis -D-dimer elevated however fibrinogen is also elevated and coags are normal which is not consistent with DIC -Platelet counts are starting to recover -Sandeep was 49,000 -Subcu Lovenox on hold until platelet count is above 75,000 -Repeat lab in a.m. Elevated D-dimer -Likely related to infection -CTA was negative for PE -Lower extremity Dopplers are pending Hyperbilirubinemia/mild transaminitis -Continues to improve -No further need to follow Toxic/metabolic encephalopathy -Resolved -Patient having intermittent hallucinations however he states these are improving and he does have a history of these when he has been ill or postoperatively Prostate cancer/BPH with obstruction -Recently underwent radical prostatectomy -Encouraged outpatient follow-up -Flomax has been on his med list however no longer verified so we will not start -Postvoid bladder scan was performed and was significant for only 2 cc Hypertension -Hold atenolol -Hold hydrochlorothiazide -Hold losartan -Reintroduce antihypertensives slowly once blood pressures allow hyperlipidemia -Continue home statin Nocturnal hypoxia/apnea -Highly suspect patient has obstructive sleep apnea -Discussed with both he and his and have recommended outpatient polysomnography after discharge -Referral placed on discharge instructions Obesity -BMI 33.3 -Recommend weight loss -Complicates treatment, prognosis, outcomes DVT prophylaxis -Platelet count continues to drop likely related to septic shock with no signs of DIC -Will hold enoxaparin until platelet count is greater than 75,000 -Continue SCDs CODE STATUS -Full code Charges/Coding Visit Charges Inpatient E&M: 79891 Subs Hosp L2
[2023-09-16] MEDS: Ceftriaxone 2 GM in 0.9% Normal Saline (50mL MB+) 50 ML IV (10:05)
[2023-09-16] MEDS: Sertraline 100 MG Tablet PO (10:05)
--- NOTE | 2023-09-16 11:33 | PCM.PN.TICU ---
Objective Data Objective Data Vital Signs: Vital Signs Last response Temperature 36.7 C 09/16/23 08:00 Temperature Source Oral 09/16/23 08:00 Pulse Rate 93 09/16/23 10:00 Pulse Strength Normal (2+) 09/14/23 21:03 Respiratory Rate 26 H 09/16/23 10:00 Respiratory Effort Normal 09/16/23 08:00 Respiratory Depth Normal 09/16/23 08:00 Respiratory Pattern Normal 09/16/23 08:00 Blood Pressure 108/71 09/16/23 10:00 Blood Pressure Mean 83 09/16/23 10:00 Blood Pressure Source Monitor 09/16/23 10:00 Blood Pressure Position Sitting 09/16/23 10:00 Blood Pressure Location Left Arm 09/16/23 10:00 Pulse Ox 97 09/16/23 10:14 Oxygen Delivery Method Room Air 09/16/23 10:14 Oxygen Flow Rate (L/min) 2 09/14/23 11:14 Fraction of Inspired Oxygen (FIO2) 50 09/13/23 22:00 I&O: I&O Last 24 Hours 09/15/23 09/15/23 09/16/23 11:59 23:59 11:59 Intake Total 53.8 / 1456.8 1053 / 1456.8 1250.38 / 1250.38 Output Total 1650 / 4725 2775 / 4725 1050 / 1050 Balance -1596.2 / -3268.2 -1722 / -3268.2 200.38 / 200.38 I&O: Total Stay 09/13/23 01:27 thru 09/16/23 10:55 Intake Total 9008.8404 Output Total 89306 Balance -1091.1567 Current Meds Ordered / Administered: Current meds ordered / Administered Generic Name Dose Route Start Last Admin Trade Name Freq PRN Reason Stop Dose Admin Acetaminophen 650 mg 09/13/23 06:13 09/15/23 06:30 Acetaminophen 325 Mg Tablet PO 650 mg Q4H PRN PRN Administration Pain 1-10 Or Fever>100.7 Atorvastatin Calcium 10 mg 09/13/23 22:00 09/15/23 21:01 Atorvastatin Calcium 10 Mg Tablet PO 10 mg 2200 MAYRA Administration Ceftriaxone Sodium 2 gm/ 50 mls @ 100 mls/hr 09/15/23 10:00 09/16/23 10:55 Sodium Chloride IV Infused Q24 MAYRA Infusion Amiodarone HCl 360 mg/ 200 mls @ 16.667 mls/hr 09/16/23 08:30 09/16/23 10:06 Dextrose CONT INF Not Given .Q12H MAYRA 0.5 MG/MIN Potassium Phosphate 40 mm/ 513.3333 mls @ 62.5 mls/hr 09/16/23 06:49 09/16/23 08:32 Sodium Chloride IV 09/16/23 15:01 62.5 mls/hr X1 ONE Administration Lorazepam 0.5 mg 09/15/23 16:08 09/15/23 21:02 Lorazepam 0.5 Mg Tablet PO 0.5 mg Q6H PRN PRN Administration ANXIETY/AGITATION Melatonin 3 mg 09/13/23 04:56 09/15/23 23:43 Melatonin 3 Mg Tablet PO 3 mg QHS PRN PRN Administration INSOMNIA Ondansetron HCl 4 mg 09/13/23 04:56 09/15/23 12:31 Ondansetron 4 Mg/2 Ml Vial IV 4 mg Q8H PRN PRN Administration NAUSEA/VOMITING Polyethylene Glycol 17 gm 09/14/23 17:05 Polyethylene Glycol 3350 17 Gm Packet PO BID PRN PRN Constipation Sertraline HCl 100 mg 09/13/23 10:00 09/16/23 10:05 Sertraline 100 Mg Tablet PO 100 mg DAILY MAYRA Administration Sodium Chloride 10 - 40 ml 09/13/23 06:28 09/15/23 10:25 0.9% Saline Lock 10 Ml Syringe IV 10 ml UD PRN Administration SALINE FLUSH Lab / Micro Data 09/16/23 03:40 09/16/23 03:40 Labs: Laboratory Results - last 24 hr 09/16/23 03:40: WBC 13.1 H, RBC 4.76, Hgb 14.0, Hct 40.2, MCV 84.5, MCH 29.4, MCHC 34.8, RDW Std Deviation 42.4, RDW Coeff of Selin 13.6, Plt Count 55 L, MPV 10.7, Immature Gran % (Auto) 0.500, Neut % (Auto) 86.7 H, Lymph % (Auto) 8.2 L, [place] % (Auto) 3.9, Eos % (Auto) 0.2, Baso % (Auto) 0.5, Absolute Neuts (auto) 11.4 H, Absolute Lymphs (auto) 1.07, Nucleated RBC % 0, Sodium 134 L, Potassium 3.2 L, Chloride 102, Carbon Dioxide 26.0, Anion Gap 6, BUN 12, Creatinine 0.81, Estim Creat Clear Calc 107.23, Est GFR (MDRD) Af Amer 123, Est GFR (MDRD) Non-Af 102, BUN/Creatinine Ratio 14.8, Glucose 109 H, Calcium 8.8, Phosphorus 2.0 L, Magnesium 1.7, Total Bilirubin 1.60 H, AST 61 H, ALT 96 H, Alkaline Phosphatase 152 H, Total Protein 6.5, Albumin 2.9 L, Globulin 3.6, Albumin/Globulin Ratio 0.8 L Micro: Microbiology 09/13/23 02:00 Urine Catheter - Gonzales Urine Culture - Final Klebsiella pneumoniae sp pneum Imaging Radiology Impression Chest CTA 09/15/23 11:40 IMPRESSION: CTA chest examination, without a demonstrated pulmonary embolism or arterial dissection. Electronically Signed: Arnold Goncalves MD at 13:11 EDT , Assessment and Plan . Assessment and plan: Critical Care Time: The entirety of this encounter was done via Telemedicine Subjective Subjective Telemedicine Pulmonary/ICU Progress Note Pt downgraded out of ICU and not seen. Critical care will be available as needed
--- NOTE | 2023-09-16 15:06 | CON.PCM.CA_ITS ---
Assessment & Plan Assessment/Plan (1) Elevated troponin I level: PLAN: Likely type II secondary to sepsis. Echo showed no regional wall motion abnormalities. (2) Atrial fibrillation: QUALIFIERS: Atrial fibrillation type: unspecified Qualified Co de(s): I48.91 - Unspecified atrial fibrillation PLAN: Switch to amiodarone 200 mg p.o. daily after 24 hours of IV amiodarone. If there is recovery of platelet function or if okayed by heme-onc service then antiplatelet or anticoagulation could be considered. HPI Consult Data Date of Consult: 09/16/23 HPI Narrative Reason for Consultation: Atrial fibrillation HPI Narrative: RICARDO MERCADO, is a 67 M who presents with sepsis. Patient was also found to be in A-fib with RVR and amnio drip has been started. The rate is now controlled. He is not on anticoagulation or antiplatelet therapy because of significant thrombocytopenia. [facility] Medical History (Updated 09/16/23 @ 15:[address] Harjinder Gaxiola MD) Anxiety Carpal tunnel syndrome on both sides Cellulitis of left hand Depression Hypercholesterolemia Hypertension Kidney stones Laceration of left hand Renal cancer Home Medications atenolol 50 mg tablet 50 mg PO DAILY 09/06/13 [History Last Taken 12/13/20] atorvastatin 10 mg tablet 10 mg PO DAILY CHOLESTEROL 12/13/20 [History Last Taken 12/13/20] hydrochlorothiazide 12.5 mg capsule 12.5 mg PO DAILY FLUID 12/13/20 [History Last Taken 12/13/20] losartan 100 mg tablet 100 mg PO DAILY BP 12/13/20 [History Last Taken 12/13/20] sertraline 100 mg tablet 100 mg PO DAILY DEPRESSION 12/13/20 [History Last Taken 12/13/20] Allergy/AdvReac Type Severity Reaction Status Date / Time No Known Allergies Allergy Verified 09/13/23 01:28 Surgical History (Updated 09/13/23 @ 06:24 by Yanci Dowling) H/O partial nephrectomy History of appendectomy Social History Smoking Status: Never smoker substance use type: does not use Physical Exam Const alert and oriented x3 HEENT normocephalic Eyes no scleral icterus Resp normal respiratory effort Risk Stratification Risk Stratification Applicable: No Objective Data Vital Signs: Vital Signs Temp Pulse Resp BP Pulse Ox O2 Del Method O2 Flow Rate 97.8 F 93 24 H 127/88 H 94 Room Air 2 09/16/23 12:00 09/16/23 13:00 09/16/23 13:00 09/16/23 13:00 09/16/23 13:00 09/16/23 13:00 09/14/23 11:14 FiO2 50 09/13/23 22:00 Oxygen Flow Rate (L/min) 2 Oxygen Delivery Method Room Air Weight: 215 lb 6.266 oz Body Mass Index (BMI) 31.8 Intake & Output: Intake and Output for Last 24 Hours 09/14/23 09/15/23 09/16/23 23:59 23:59 23:59 Intake Total 703.33 / 705.23 1106.8 / 1456.8 1324.70 / 1324.70 Output Total 2250 / 3150 4425 / 4725 1050 / 1050 Balance -1546.67 / -2444.77 -3318.2 / -3268.2 274.70 / 274.70 Lab / Micro Data 09/16/23 03:40 09/16/23 03:40 Labs: Laboratory Results - last 24 hr 09/16/23 03:40: WBC 13.1 H, RBC 4.76, Hgb 14.0, Hct 40.2, MCV 84.5, MCH 29.4, MCHC 34.8, RDW Std Deviation 42.4, RDW Coeff of Selin 13.6, Plt Count 55 L, MPV 10.7, Immature Gran % (Auto) 0.500, Neut % (Auto) 86.7 H, Lymph % (Auto) 8.2 L, [place] % (Auto) 3.9, Eos % (Auto) 0.2, Baso % (Auto) 0.5, Absolute Neuts (auto) 11.4 H, Absolute Lymphs (auto) 1.07, Nucleated RBC % 0, Sodium 134 L, Potassium 3.2 L, Chloride 102, Carbon Dioxide 26.0, Anion Gap 6, BUN 12, Creatinine 0.81, Estim Creat Clear Calc 107.23, Est GFR (MDRD) Af Amer 123, Est GFR (MDRD) Non-Af 102, BUN/Creatinine Ratio 14.8, Glucose 109 H, Calcium 8.8, Phosphorus 2.0 L, Magnesium 1.7, Total Bilirubin 1.60 H, AST 61 H, ALT 96 H, Alkaline Phosphatase 152 H, Total Protein 6.5, Albumin 2.9 L, Globulin 3.6, Albumin/Globulin Ratio 0.8 L Micro: Microbiology 09/15/23 13:45 Blood Culture (Wb) - Other Blood Culture - Preliminary Cardiology Labs/Tests 09/16/23 03:40: WBC 13.1 H, RBC 4.76, Hgb 14.0, Hct 40.2, MCV 84.5, MCH 29.4, MCHC 34.8, Plt Count 55 L, MPV 10.7, Immature Gran % (Auto) 0.500, Neut % (Auto) 86.7 H, Lymph % (Auto) 8.2 L, [place] % (Auto) 3.9, Eos % (Auto) 0.2, Baso % (Auto) 0.5, Absolute Neuts (auto) 11.4 H, Nucleated RBC % 0, Sodium 134 L, Potassium 3.2 L, Chloride 102, Carbon Dioxide 26.0, Anion Gap 6, BUN 12, Creatinine 0.81, Est GFR (MDRD) Af Amer 123, Est GFR (MDRD) Non-Af 102, BUN/Creatinine Ratio 14.8, Glucose 109 H, Calcium 8.8, Phosphorus 2.0 L, Magnesium 1.7, Total Bilirubin 1.60 H Rhythm: EKG: ECHO: Stress Test: Cardiac Cath: PCI: CT Surgery: Holter monitor: EPS: PPM: CXR: Chest CT Scan:
[2023-09-16] MEDS: Amiodarone 200 MG Tablet PO (16:21)
[2023-09-16] MEDS: Atorvastatin Calcium 10 MG Tablet PO (21:34)
[2023-09-17 04:00] VITALS: BP 146/87; PULSE 86; RESP 16; TEMP 36.6; O2SAT 96
[2023-09-17 05:08] VITALS: BMI 31.7
[2023-09-17 07:05] LABS: Hematocrit 39.2 % (40-54); Hemoglobin 13.4 g/dL (13.0-16.5); Mean Corp Hgb Conc 34.2 g/dL (32-36); Mean Corpuscular Hgb 28.9 pg (27.0-32.0); Mean Corpuscular Volume 84.7 fL (80-94); Mean Platelet Vol. 10.8 fl (6.2-12.0); POSITIVE COUNT YES; Platelet Count 68 K/mm3 (150-450); RBC Distribution Width CV 13.7 % (11.6-14.6); RBC Distribution Width SD 42.2 fl (35.1-43.9); Red Blood Count 4.63 M/mm3 (4.6-6.2); White Blood Count 11.3 K/mm3 (4.4-11.0)
[2023-09-17 07:08] LABS: Scan Indicated on CBC? Y/N NO
[2023-09-17 07:28] LABS: Anion Gap 7 (5-15); BUN 12 mg/dL (7-18); BUN/Creat Ratio 19.9 RATIO (10-20); Calcium,Total 8.9 mg/dL (8.5-10.1); Chloride 105 mmol/L (98-107); EST Glomerular Filtration Rate 143 mL/min (>60); Est Glom Filt Rate - Afr Amer 172 mL/min (>60); Estimated Creatinine Clearance 105.96 ml/min; Glucose 111 mg/dL (74-106); Phosphorus 2.7 mg/dL (2.5-4.9); Potassium 3.5 mmol/L (3.5-5.1); Sodium Level 137 mmol/L (136-145)
[2023-09-17 08:16] VITALS: BP 142/99; PULSE 102; RESP 18; TEMP 36.4; O2SAT 94
[2023-09-17] MEDS: Amiodarone 200 MG Tablet PO (08:24)
[2023-09-17] MEDS: Sertraline 100 MG Tablet PO (08:24)
[2023-09-17] MEDS: Ceftriaxone 2 GM in 0.9% Normal Saline (50mL MB+) 50 ML IV (10:04)
[2023-09-17] MEDS: 0.9% Saline Lock 10 ML Syringe IV (10:04)
--- NOTE | 2023-09-17 12:34 | PCM.PN.HOSP ---
Reason for Visit Reason for Visit: Diagnoses Sepsis, unspecified organism (09/13/23) Other disorders of phosphorus metabolism (09/13/23) Hypomagnesemia (09/13/23) Acidosis, unspecified (09/13/23) Hypokalemia (09/13/23) Unspecified atrial fibrillation (09/13/23) Acute respiratory failure with hypoxia (09/13/23) Urinary tract infection, site not specified (09/13/23) Other specified abnormal findings of blood chemistry (09/13/23) Subjective Subjective Patient is a 67-year-old gentleman with recent prostatectomy for prostate cancer presented with fever chills and confusion and assessment of septic shock made admitted for subsequent inpatient managemen Objective Data Objective Data Vital Signs: Vital Signs Temp Pulse Resp BP Pulse Ox O2 Del Method O2 Flow Rate 97.6 F L 102 H 18 142/99 H 94 Room Air 2 09/17/23 08:16 09/17/23 08:16 09/17/23 08:16 09/17/23 08:16 09/17/23 08:16 09/17/23 08:20 09/14/23 11:14 FiO2 50 09/13/23 22:00 Oxygen Flow Rate (L/min) 2 Oxygen Delivery Method Room Air Weight: 97.4 kg Body Mass Index (BMI) 31.7 Intake & Output: Intake and Output for Last 24 Hours 09/15/23 09/16/23 09/17/23 23:59 23:59 23:59 Intake Total 1106.8 / 1456.8 2384.8333 / 3284.8333 1510 / 1510 Output Total 4425 / 4725 1050 / 1050 Balance -3318.2 / -3268.2 1334.8333 / 2234.8333 1510 / 1510 Lab / Micro Data 09/17/23 06:45 09/17/23 06:45 Labs: Laboratory Results - last 24 hr 09/17/23 06:45: WBC 11.3 H, RBC 4.63, Hgb 13.4, Hct 39.2 L, MCV 84.7, MCH 28.9, MCHC 34.2, RDW Std Deviation 42.2, RDW Coeff of Selin 13.7, Plt Count 68 L, MPV 10.8, Sodium 137, Potassium 3.5, Chloride 105, Carbon Dioxide 25.0, Anion Gap 7, BUN 12, Creatinine 0.60 L, Estim Creat Clear Calc 105.96, Est GFR (MDRD) Af Amer 172, Est GFR (MDRD) Non-Af 143, BUN/Creatinine Ratio 19.9, Glucose 111 H, Calcium 8.9, Phosphorus 2.7 Micro: Microbiology 09/15/23 13:45 Blood Culture (Wb) - Other Bacteria Detection (PCR) - Final Staphylococcus epidermidis 09/15/23 13:45 Blood Culture (Wb) - Other Blood Culture - Preliminary Staphylococcus epidermidis 09/13/23 02:00 Urine Catheter - [place] Urine Culture - Final Klebsiella pneumoniae sp pneum 09/13/23 01:30 Blood Culture (Wb) - Anticubital Right Blood Culture - Final Klebsiella pneumoniae sp pneum 09/13/23 01:35 Blood Culture (Wb) - Left Forearm Blood Culture - Final GNR lactose 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 SKIN: Perioral vesicular rash PSYCH; Flat affect Assessment & Plan Assessment/Plan (1) Urinary tract infection: PLAN: Plan Patient is a 67-year-old gentleman with recent prostatectomy for prostate cancer presented with fever chills and confusion and assessment of septic shock made admitted for subsequent inpatient management. 1. Septic shock ? Secondary to UTI with Klebsiella pneumoniae. Managed per protocol septic shock has since resolved 2. Acute complicated urinary tract infection with Klebsiella pneumoniae ? Patient presented with septic shock treatment initiated per protocol with IV fluid resuscitation broad-spectrum antibiotic therapy after cultures have been sent. Patient remains on ceftriaxone based on sensitivities 3. Acute metabolic encephalopathy ? Secondary to septic shock and UTI has since resolved 4. Bacteremia ? With staph epi suspected to be secondary to contaminant however given how sick patient was repeat cultures sent. Consult placed to ID 6. New onset A-fib with RVR ? Patient responded to amiodarone. Echo did not demonstrate any structural heart disease. Rate is controlled patient not on systemic anticoagulation given his low platelet count 7. Thrombocytopenia ? Thought to be secondary to sepsis monitoring with daily CBC with differential 8. Elevated troponin ? Secondary to myocardial injury as a result of septic shock echo did not show any regional wall motion abnormalities 9. Hypokalemia ? Corrected per protocol 10. Hypomagnesemia Corrected per protocol repeat labs ordered for monitoring 11. Hypophosphatemia ? Corrected per protocol with repeat labs ordered for monitoring 12. Acute transaminitis ? Secondary to patient septic shock stabilized 13. Essential hypertension ? Patient antihypertensives held on admission given his low blood pressure plan is to reintroduce as tolerated 14. Class I obesity with BMI of 31.7 ? Weight loss advised 15. Recent prostate CA diagnosis ? Status post prostatectomy at [facility] 7 weeks prior to his admission patient to follow-up with his primary urology for subsequent care 16. Dyslipidemia -Patient is on statin therapy, continued at home dose 17. Suspected sleep apnea ? Patient to undergo outpatient sleep study 18. DVT prophylaxis ? Bilateral SCDs only Time spent in the patient's overall evaluation,decision-making process, review of diagnostic data, adjustment of management, discussion with other providers, nursing nursing and ancillary staff involved in patient's care documentation, 52 Minutes Charges/Coding Visit Charges Inpatient E&M: 13557 [facility]
--- NOTE | 2023-09-17 13:11 | PCM.CONS.GEN ---
Assessment & Plan Assessment/Plan (1) Sepsis: QUALIFIERS: Sepsis type: sepsis due to unspecified organism Sepsis acute organ dysfunction status: unspecified Qualified Code(s): A41.9 - Sepsis, unspecified organism (2) Bacteremia due to Klebsiella pneumoniae: PLAN: Much improved. Urinary source. CT showed no stones, abscess, hydro. On ceftriaxone, will continue while inpatient. Admitted 09/12. Plan on discharge home with 6 more days po keflex 500mg tid. Single repeat bcx with CoNS, suspect contaminant. Will follow, thank you HPI Consult Data Date of Consult: 09/17/23 HPI Narrative Reason for Consultation: bacteremia HPI Narrative: RICARDO MERCADO, is a 67 M with prostate cancer, had radical prostatectomy about 8 weeks ago at [facility]. Had uti about a month ago with dysuria, frequency. Has been feeling fine recently, but evening 09/11 had acute onset shakes, chills, confusion, nausea. Came to ED 09/12, admitted to icu on zosyn after dose of vanc. Now out of icu, abx narrowed to ceftriaxone, feeling better. No abd pain, no urinary symptoms. No blood in stool, no abd pain. Full ROS performed and neg except as noted above. [facility] Medical History Anxiety Carpal tunnel syndrome on both sides Cellulitis of left hand Depression Hypercholesterolemia Hypertension Kidney stones Laceration of left hand Renal cancer Home Medications atenolol 50 mg tablet 50 mg PO DAILY 09/06/13 [History Last Taken 12/13/20] atorvastatin 10 mg tablet 10 mg PO DAILY CHOLESTEROL 12/13/20 [History Last Taken 12/13/20] hydrochlorothiazide 12.5 mg capsule 12.5 mg PO DAILY FLUID 12/13/20 [History Last Taken 12/13/20] losartan 100 mg tablet 100 mg PO DAILY BP 12/13/20 [History Last Taken 12/13/20] sertraline 100 mg tablet 100 mg PO DAILY DEPRESSION 12/13/20 [History Last Taken 12/13/20] Allergy/AdvReac Type Severity Reaction Status Date / Time No Known Allergies Allergy Verified 09/13/23 01:28 Surgical History (Updated 09/13/23 @ 06:24 by Yanci Dowling) H/O partial nephrectomy History of appendectomy Social History Smoking Status: Never smoker substance use type: does not use Physical Exam Const alert, oriented x3 and no apparent distress General Appearance: cooperative HEENT normocephalic and head/scalp atraumatic Eyes PERRL and EOMs intact bilaterally Neck supple and No nodes Resp normal air movement and clear to auscultation bilaterally Cardio regular rate and regular rhythm GI soft to palpation, non-tender and non-distended Extremity General Extremity: Negative for edema Skin no rashes or lesions noted Neuro CN's II-XII intact bilaterally Lab / Micro Data Attestation: I reviewed the patient's lab results. 09/17/23 06:45 09/17/23 06:45 Labs: Laboratory Results - last 24 hr 09/17/23 06:45: WBC 11.3 H, RBC 4.63, Hgb 13.4, Hct 39.2 L, MCV 84.7, MCH 28.9, MCHC 34.2, RDW Std Deviation 42.2, RDW Coeff of Selin 13.7, Plt Count 68 L, MPV 10.8, Sodium 137, Potassium 3.5, Chloride 105, Carbon Dioxide 25.0, Anion Gap 7, BUN 12, Creatinine 0.60 L, Estim Creat Clear Calc 105.96, Est GFR (MDRD) Af Amer 172, Est GFR (MDRD) Non-Af 143, BUN/Creatinine Ratio 19.9, Glucose 111 H, Calcium 8.9, Phosphorus 2.7 Micro: Microbiology 09/15/23 13:45 Blood Culture (Wb) - Other Bacteria Detection (PCR) - Final Staphylococcus epidermidis 09/15/23 13:45 Blood Culture (Wb) - Other Blood Culture - Preliminary Staphylococcus epidermidis
[2023-09-17 14:20] VITALS: BP 134/103; PULSE 93; RESP 14; TEMP 36.4; O2SAT 94
--- NOTE | 2023-09-17 14:47 | DS.PCM_ITS ---
Providers Date of Admission: 09/13/23 Date of Discharge: 09/17/23 Primary Care Physician: Dr. Garry Moran MD Consultations 09/13/23 07:07 Consult: Service Dog Trainer / Pulmonary Medicine Routine Consulting Provider: Intensivists/Pulmonary Med Reason for Consult: septic shock due to UTI EMERGENT Consult: No Notified: Yes Date Notified: 09/13/23 Time Notified: 07:07 Method of Notification: Verbal 09/16/23 06:48 Consult: Cardiology Routine Consulting Provider: Harjinder Gaxiola Reason for Consult: troponin elevation and new afib with rvr EMERGENT Consult: No Notified: No Date Notified: 09/16/23 Time Notified: 06:48 09/16/23 08:30 Consult: Cardiology Routine Consulting Provider: Harjinder Gaxiola Reason for Consult: continued new AFib EMERGENT Consult: No Notified: Yes Date Notified: 09/16/23 Time Notified: 07:30 Method of Notification: Text 09/17/23 09:29 Consult: Infectious Disease Routine Consulting Provider: Reginald Nassar Reason for Consult: bacteremia EMERGENT Consult: No Notified: Yes Date Notified: 09/17/23 Time Notified: 09:29 Method of Notification: Text Reason For Visit: SEPSIS WITHOUT SHOCK SECONDARY TO UTI Diagnosis Discharge Diagnosis (1) Sepsis: Status: Acute Code(s): A41.9 - Sepsis, unspecified organism Qualifiers: Sepsis type: sepsis due to unspecified organism Sepsis acute organ dysfunction status: unspecified Qualified Code(s): A41.9 - Sepsis, unspecified organism (2) Bacteremia due to Klebsiella pneumoniae: Status: Acute Code(s): R78.81 - Bacteremia; B96.1 - Klebsiella pneumoniae [K. pneumoniae] as the cause of diseases classified elsewhere Plan Patient is a 67-year-old gentleman with recent prostatectomy for prostate cancer presented with fever chills and confusion and assessment of septic shock made admitted for subsequent inpatient management. 1. Septic shock ? Secondary to UTI with Klebsiella pneumoniae. Managed per protocol septic shock has since resolved 2. Acute complicated urinary tract infection with Klebsiella pneumoniae ? Patient presented with septic shock treatment initiated per protocol with IV fluid resuscitation broad-spectrum antibiotic therapy after cultures have been sent. Patient remains on ceftriaxone based on sensitivities ? Patient was discharged on Keflex 3. Acute metabolic encephalopathy ? Secondary to septic shock and UTI has since resolved 4. Bacteremia ? With staph epi suspected to be secondary to contaminant however given how sick patient was repeat cultures sent. Consult placed to ID ? Patient was seen by Dr. Nassar recommended no additional treatment 6. New onset A-fib with RVR ? Patient responded to amiodarone. Echo did not demonstrate any structural heart disease. Rate is controlled patient not on systemic anticoagulation given his low platelet count ? Patient was discharged on amiodarone 7. Thrombocytopenia ? Thought to be secondary to sepsis monitoring with daily CBC with differential 8. Elevated troponin ? Secondary to myocardial injury as a result of septic shock echo did not show any regional wall motion abnormalities 9. Hypokalemia ? Corrected per protocol 10. Hypomagnesemia Corrected per protocol repeat labs ordered for monitoring 11. Hypophosphatemia ? Corrected per protocol with repeat labs ordered for monitoring 12. Acute transaminitis ? Secondary to patient septic shock stabilized 13. Essential hypertension ? Patient antihypertensives held on admission given his low blood pressure plan is to reintroduce as tolerated 14. Class I obesity with BMI of 31.7 ? Weight loss advised 15. Recent prostate CA diagnosis ? Status post prostatectomy at [facility] 7 weeks prior to his admission patient to follow-up with his primary urology for subsequent care 16. Dyslipidemia -Patient is on statin therapy, continued at home dose 17. Suspected sleep apnea ? Patient to undergo outpatient sleep study 18. DVT prophylaxis ? Bilateral SCDs only Time spent in the patient's overall evaluation,decision-making process, review of diagnostic data, adjustment of management, discussion with other providers, nursing nursing and ancillary staff involved in patient's care documentation, 52 Minutes Medications at Discharge Home Medications atenolol 50 mg tablet 50 mg PO DAILY 09/06/13 atorvastatin 10 mg tablet 10 mg PO DAILY CHOLESTEROL 12/13/20 hydrochlorothiazide 12.5 mg capsule 12.5 mg PO DAILY FLUID 12/13/20 losartan 100 mg tablet 100 mg PO DAILY BP 12/13/20 sertraline 100 mg tablet 100 mg PO DAILY DEPRESSION 12/13/20 amiodarone 200 mg tablet 200 mg PO DAILY #60 tabs 09/17/23 cephalexin 500 mg capsule 500 mg PO TID #15 caps 09/17/23 Physical Exam Narrative GENERAL: cooperative HEENT: Atraumatic; normocephalic EYES; Anicteric, Normal Conjunctiva NECK; supple, normal thyroid, RESPIRATORY: Diminished to auscultation CARDIOVASCULAR: Regular S1 S2, GI: soft, normoactive bowel sounds, : No Renal angle tenderness; EXTREMITIES: No edema, no clubbing, MUSCULOSKELETAL: no muscle wasting NEURO: Awake; no lateralizing signs. SKIN: Perioral vesicular rash PSYCH; Flat affect Weight / BMI Weight Weight: 97.4 kg Body Mass Index (BMI) 31.7 ABG / Lab / Microbiology Data 09/17/23 06:45 09/17/23 06:45 Laboratory: Laboratory Results - last 24 hr 09/17/23 06:45: WBC 11.3 H, RBC 4.63, Hgb 13.4, Hct 39.2 L, MCV 84.7, MCH 28.9, MCHC 34.2, RDW Std Deviation 42.2, RDW Coeff of Selin 13.7, Plt Count 68 L, MPV 10.8, Sodium 137, Potassium 3.5, Chloride 105, Carbon Dioxide 25.0, Anion Gap 7, BUN 12, Creatinine 0.60 L, Estim Creat Clear Calc 105.96, Est GFR (MDRD) Af Amer 172, Est GFR (MDRD) Non-Af 143, BUN/Creatinine Ratio 19.9, Glucose 111 H, Calcium 8.9, Phosphorus 2.7 Microbiology: Microbiology 09/15/23 13:45 Blood Culture (Wb) - Other Bacteria Detection (PCR) - Final Staphylococcus epidermidis 09/15/23 13:45 Blood Culture (Wb) - Other Blood Culture - Preliminary Staphylococcus epidermidis 09/13/23 02:00 Urine Catheter - [place] Urine Culture - Final Klebsiella pneumoniae sp pneum 09/13/23 01:30 Blood Culture (Wb) - Anticubital Right Blood Culture - Final Klebsiella pneumoniae sp pneum 09/13/23 01:35 Blood Culture (Wb) - Left Forearm Blood Culture - Final GNR lactose voicer 09/13/23 01:58 Mucosa - Nose SARS-CoV-2, Influenza & RSV (PCR) - Final D/C Instructions Discharge Diet: No restrictions Discharge Activity: Return to Normal Activity Call your doctor if you observe: Fever of 101 or Higher, Shortness of breath, Fainting spells and Chest pain Meaningful Use Info Meaningful Use Meaningful Use Diagnoses (Choose all that apply): None applicable Ischemic Stroke Statin Dosing Therapy Reference: STATIN DOSE THERAPY REFERENCE: * Patients > 75 years receive moderate or high dose statin therapy. * Patients 75 years or YOUNGER should receive HIGH intensity statin dose unless contraindicated. You will be required to document reason for non-treatment if statin daily dose does not meet guidelines. HIGH DOSE STATIN THERAPY DAILY Atorvastatin > than or = to 40 mg Rosuvastatin > than or = to 20 mg Amlodipine + Atorvastatin > than or = to 2.5/40 mg Ezetimibe + Simvastatin 10/80 mg Simvastatin 80mg Discharge Plan Admission Admit Date/Time: 09/13/23 04:32 Primary Reason for Your Visit: Fevers/chills/confusion Attending Provider: Tim Kiran Primary Care Provider: Garry Moran Consulting Providers: Michael Carmona; Harjinder Gaxiola; Claire Arias; Reginald Nassar Instructions Additional Instructions / Restrictions: 1. Please call urologist and schedule an appointment for 1 week after discharge since you were diagnosed with septic shock related to a urinary tract infection with recent instrumentation. Discharge Orders/Prescriptions Prescriptions: New amiodarone 200 mg Tablet 200 mg PO DAILY Qty: 60 0RF cephalexin 500 mg capsule 500 mg PO TID Qty: 15 0RF Continued atenolol 50 MG tablet 50 mg PO DAILY sertraline 100 mg tablet 100 mg PO DAILY hydrochlorothiazide 12.5 mg capsule 12.5 mg PO DAILY losartan 100 mg tablet 100 mg PO DAILY atorvastatin 10 mg tablet 10 mg PO DAILY Referrals / Follow Up: Garry Moran MD [Primary Care Provider] - Nataliia Roche NP, [employer] [Med Staff - [facility] Practice Prof] - See Referral Note (Call office and set up appointment for sleep study evaluation) Disposition Disposition (needs filled in before D/C Order can be placed): Home, Self Care Charges/Coding Visit Charges Inpatient E&M: 36648 Disch Hosp >30min
--- NOTE | 2023-09-17 15:00 | PHA.DC.MC.R ---
Pharmacy [facility] has performed discharge medication reconciliation and counseling for this patient. The patient's discharge medication list was reviewed for discrepancies and discrepancies were resolved. The patient was counseled on the following discharge medications and changes in medications for homegoing were reviewed. The Reason for Use, instructions for use, and potential side effects were reviewed for all new medications. The patient's questions regarding all of their medications were answered. 1. Amiodarone 200 mg PO daily 2. Cephalexin 500 mg PO TID x 5 days The patient was able to verbally demonstrate an understanding of their discharge medications. Medications at Discharge Home Medications atenolol 50 mg tablet 50 mg PO DAILY 09/06/13 atorvastatin 10 mg tablet 10 mg PO DAILY CHOLESTEROL 12/13/20 hydrochlorothiazide 12.5 mg capsule 12.5 mg PO DAILY FLUID 12/13/20 losartan 100 mg tablet 100 mg PO DAILY BP 12/13/20 sertraline 100 mg tablet 100 mg PO DAILY DEPRESSION 12/13/20 amiodarone 200 mg tablet 200 mg PO DAILY #60 tabs 09/17/23 cephalexin 500 mg capsule 500 mg PO TID #15 caps 09/17/23
--- NOTE | 2023-09-17 15:27 | CASEMGMT ---
Patient has order for discharge. No therapy recommended at discharge. RN CM in to discuss needs at discharge. Patient denies needs or help at discharge. Patient had no further questions or concerns.
[2023-09-18 15:08] LABS: Pathologist Review Reviewed
== END 2023-09-17 16:04 | disposition home or self-care (01) | DRG 871 ==
LOC: ED 04:43 → PCU 06:45 → ICU 07:48 → PCU 09-17 07:15
PROVIDERS: Internal Medicine; Admitting Provider Hospitalist; Emergency Provider Emergency Medicine; PCP Internal Medicine; Visit Provider Internal Medicine
DX: A41.59 Other Gram-negative sepsis (principal); G92.8 Other toxic encephalopathy; J96.01 Acute respiratory failure with hypoxia; R65.21 Severe sepsis with septic shock; N17.9 Acute kidney failure, unspecified; E87.20 Acidosis, unspecified; N39.0 Urinary tract infection, site not specified; I48.91 Unspecified atrial fibrillation; F39 Unspecified mood [affective] disorder; I10 Essential (primary) hypertension; E78.00 Pure hypercholesterolemia, unspecified; G47.33 Obstructive sleep apnea (adult) (pediatric); E66.9 Obesity, unspecified; Z68.33 Body mass index [BMI] 33.0-33.9, adult; Z79.899 Other long term (current) drug therapy
CPT/HCPCS: 36415; 36569; 36600; 51702; 70450; 71045; 71275; 74177; 80048; 80053; 80076; 81001; 82140; 82803; 83605; 83735; 83880; 84100; 84145; 84443; 84484; 85025; 85027; 85379; 85384; 85610; 85730; 87040; 87077; 87086; 87088; 87149; 87186; 87631; 93005; 93306; 93923; 93970; 97116; 97161; 97165; 99285; J7030; J7040; J7050; J7120; Q9967; A4216; J1940; J2405

== ENCOUNTER 2023-09-18 11:54 | Emergency (ER) | payer OTHER, SELFPAY ==
[2023-09-18 11:55] VITALS: BP 133/86; PULSE 92; RESP 14; TEMP 36.1; O2SAT 99; BMI 30.2
--- NOTE | 2023-09-18 12:59 | EDS_ITS ---
HPI History of Present Illness Chief Complaint: Rash [facility] Medical History Anxiety Carpal tunnel syndrome on both sides Cellulitis of left hand Depression Hypercholesterolemia Hypertension Kidney stones Laceration of left hand Renal cancer Home Medications atenolol 50 mg tablet 50 mg PO DAILY 09/06/13 [History Last Taken 12/13/20] atorvastatin 10 mg tablet 10 mg PO DAILY CHOLESTEROL 12/13/20 [History Last Taken 12/13/20] hydrochlorothiazide 12.5 mg capsule 12.5 mg PO DAILY FLUID 12/13/20 [History Last Taken 12/13/20] losartan 100 mg tablet 100 mg PO DAILY BP 12/13/20 [History Last Taken 12/13/20] sertraline 100 mg tablet 100 mg PO DAILY DEPRESSION 12/13/20 [History Last Taken 12/13/20] amiodarone 200 mg tablet 200 mg PO DAILY #60 tabs 09/17/23 [Rx Last Taken Un known] cephalexin 500 mg capsule 500 mg PO TID #15 caps 09/17/23 [Rx Last Taken Unknown] sulfamethoxazole 800 mg-trimethoprim 160 mg tablet (Bactrim DS) 1 tab PO BID 7 days #14 tabs 09/18/23 [Rx Last Taken Unknown] Allergy/AdvReac Type Severity Reaction Status Date / Time No Known Allergies Allergy Verified 09/18/23 12:00 Surgical History (Updated 09/13/23 @ 06:24 by Yanci Dowling) H/O partial nephrectomy History of appendectomy Social History Smoking Status: Never smoker substance use type: does not use EXAM Physical Exam Const Vital Signs: 09/18/23 11:55 Temperature 97 F L Temperature Source Temporal Pulse Rate 92 Respiratory Rate 14 Blood Pressure 133/86 H Blood Pressure Mean 101 Pulse Ox 99 Oxygen Delivery Method Room Air MDM MDM MDM Narrative Medical decision making narrative: HISTORY OF PRESENT ILLNESS: 67-year-old male presents with rash on his face. Notes he saw dermatology just prior to arrival. [employer]beater on impetigo but was concerned given his recent admission for sepsis. Patient denies any confusion, fever, vomiting, does not feel sick. REVIEW OF SYSTEMS: Pertinent positives: Facial rash Pertinent negatives: Fever, vomiting PHYSICAL EXAM: Nursing triage notes reviewed, Vital signs reviewed Constitutional: please see mdm HENT: MMM Eyes: Pupils equal round and reactive to light, Extraocular muscles intact Neck: No stridor, no JVD, full neck ROM Lungs: Clear to auscultation, No wheezing or rales. No increased work of breathing, no conversational dyspnea, no accessory muscle use, no nasal flaring. No respiratory distress noted Heart: Regular rate and rhythm, No murmurs, No rubs and No gallops, 2+ distal pulses (radial, femoral, posterior tibial) in all extremities Abdomen: Soft, there is no tenderness, rigidity, rebound or guarding, no obvious peritoneal signs, no palpable pulsatile abdominal masses, no auscultated abdominal bruit : No CVAT Extremities: No edema Neuro: No focal neurological deficits, cranial nerves II through XII intact, 5/5 strength in all extremities. Intact sensation to light touch in all extremities, 2+ reflexes bilateral patella tendons. Normal gait. No ataxia. Skin: Erythematous, dietrich discoloration underneath the nose to the upper lip, no fluctuance induration, no crepitus or bullae MEDICAL DECISION MAKING: Chief Complaint: Facial rash External records reviewed: Recent hospitalization for urosepsis. Discharged on 09/17/2023. Blood cultures reviewed from 09/15/2023 grew staph epididymitis. Urine culture grew Klebsiella Factors affecting care: Atrial fibrillation, hypertension, hyperlipidemia, Social determinants of health: Elderly History obtained from others: none Consults: none [facility] Narrative: Patient was hemodynamically stable, afebrile and nontoxic-appearing. I considered the following differential diagnosis: Cellulitis, erysipelas, malar rash, rosacea ALL IMAGES (IF OBTAINED) HAVE BEEN PERSONALLY REVIEWED AND INTERPRETED BY MYSELF. CBC without leukocytosis, severe anemia, no thrombocytopenia. Lactate is wnl indicating no end-organ hypoperfusion and/or hypoxia. BMP without evidence of significant electrolyte abnormalities, no anion gap, no acute kidney injury. The synthesis of the patient's lab suggests no signs of sepsis or endorgan hypoperfusion. Is appropriate oral antibiotics and discharge. The patient and/or family, caregivers express understanding. The patient and/or family, caregivers agrees with the plan. Shared decision making: I will have a discussion with the patient and or visitors regarding risk/benefits of further testing or admission. They will be made aware of of the risk/benefits inherent in this decision they will be given the opportunity to voice understanding. Total critical care time today provided was at least 0 [] minutes. This excludes separately billable procedures. Critical care time (if documented) is secondary to the patient having high probability of clinically significant/life threatening deterioration in the patient's condition which required my urgent intervention. Impression: 1. Impetigo 2. Rash Dispo: Discharge home This note was generated with [employer] dictation software. It may contain incorrect words, spelling, and punctuation that were not noted in review of the chart prior to signing. Lab Data Labs: Laboratory Results - last 24 hr 09/18/23 13:45 WBC 10.9 RBC 4.93 Hgb 14.7 Hct 42.9 MCV 87.0 MCH 29.8 MCHC 34.3 RDW Std Deviation 43.9 RDW Coeff of Selin 13.8 Plt Count 172 MPV 11.3 Immature Gran % (Auto) 4.000 H Neut % (Auto) 59.0 Lymph % (Auto) 23.3 [place] % (Auto) 12.4 H Eos % (Auto) 0.8 Baso % (Auto) 0.5 Absolute Neuts (auto) 6.4 Absolute Lymphs (auto) 2.55 Nucleated RBC % 0 Differential Comment SCANNED Reactive Lymphocytes 1+ Sodium 136 Potassium 4.2 Chloride 106 Carbon Dioxide 25.0 Anion Gap 5 BUN 15 Creatinine 0.71 Estim Creat Clear Calc 103.66 Est GFR (MDRD) Af Amer 143 Est GFR (MDRD) Non-Af 118 BUN/Creatinine Ratio 21.1 H Glucose 88 Lactic Acid 1.5 Calcium 9.2 Discharge Plan Triage Chief Complaint: Rash ED Provider: Giacomo Bach Dx/Rx/DC Orders Clinical Impression: Impetigo Instructions: ED Impetigo Prescriptions: New sulfamethoxazole-trimethoprim [Bactrim DS] 800-160 mg tablet 1 tab PO BID 7 Days Qty: 14 0RF No Action atenolol 50 MG tablet 50 mg PO DAILY sertraline 100 mg tablet 100 mg PO DAILY hydrochlorothiazide 12.5 mg capsule 12.5 mg PO DAILY losartan 100 mg tablet 100 mg PO DAILY atorvastatin 10 mg tablet 10 mg PO DAILY amiodarone 200 mg Tablet 200 mg PO DAILY Qty: 60 0RF cephalexin 500 mg capsule 500 mg PO TID Qty: 15 0RF Primary Care Provider: Garry Moran Referrals: Garry Moran MD [Primary Care Provider] - Activity Restrictions/Additional Instructions: Thank you for trusting us with your care today! Please take Tylenol (2 pills, 650 mg), ibuprofen (2 pills, 400 mg) every 6 hours as needed for pain and fever control. Please take antibiotics until course complete. Please return to the emergency department if your symptoms change or worsen. Specifically develop fever, confusion, you cannot tolerate antibiotics by mouth. Please follow with your primary care physician for further outpatient evaluation and management. Disposition Disposition: Home, Self Care
[2023-09-18] MEDS: Vancomycin HCl 1,500 MG in 0.9% Normal Saline (500mL Bag) 500 ML 250 MG IV (13:44)
[2023-09-18 13:56] LABS: Absolute Lymphocyte Count 2.55 X10^3/uL (0.83-4.51); Absolute Neutrophil Count 6.4 X10^3/uL (2.0-7.7); Basophil# 0.05 X10^3/uL; Basophil% 0.5 % (0-1); Eosinophil# 0.09 X10^3/uL; Eosinophils% 0.8 % (0-5); Hematocrit 42.9 % (40-54); Hemoglobin 14.7 g/dL (13.0-16.5); Lymphocyte # 2.55 X10^3/ul (0.83-4.51); Lymphocyte % 23.3 % (19-41); Mean Corp Hgb Conc 34.3 g/dL (32-36); Mean Corpuscular Hgb 29.8 pg (27.0-32.0); Mean Platelet Vol. 11.3 fl (6.2-12.0); Monocyte# 1.36 X10^3/uL; Monocyte% 12.4 % (0-10); NRBC Flagged by Analyzer 0 % (0-5); Neutrophil # 6.44 X10^3/uL (2.7-7.7); POSITIVE MORPHOLOGY YES; Platelet Count 172 K/mm3 (150-450); RBC Distribution Width CV 13.8 % (11.6-14.6); RBC Distribution Width SD 43.9 fl (35.1-43.9); Red Blood Count 4.93 M/mm3 (4.6-6.2); White Blood Count 10.9 K/mm3 (4.4-11.0)
[2023-09-18 13:57] LABS: Differential Indicated SCAN CRITERIA MET
[2023-09-18 14:11] LABS: Anion Gap 5 (5-15); BUN 15 mg/dL (7-18); BUN/Creat Ratio 21.1 RATIO (10-20); Calcium,Total 9.2 mg/dL (8.5-10.1); Chloride 106 mmol/L (98-107); Creatinine, Serum 0.71 mg/dL (0.70-1.30); EST Glomerular Filtration Rate 118 mL/min (>60); Est Glom Filt Rate - Afr Amer 143 mL/min (>60); Estimated Creatinine Clearance 103.66 ml/min; Glucose 88 mg/dL (74-106); Potassium 4.2 mmol/L (3.5-5.1); Sodium Level 136 mmol/L (136-145)
[2023-09-18 14:25] LABS: Lactic Acid 1.5 mmol/L (0.4-1.9)
[2023-09-18 14:27] LABS: Differential Comment SCANNED; Reactive Lymphocyte 1+
[2023-09-18 15:55] VITALS: BP 140/75; BP 142/80; PULSE 72; PULSE 80; RESP 16; RESP 18; TEMP 36.7; O2SAT 100; O2SAT 99
== END 2023-09-18 16:16 | disposition home or self-care (01) ==
PROVIDERS: Emergency Provider Emergency Medicine; PCP Internal Medicine; Visit Provider Emergency Medicine
DX: L01.00 Impetigo, unspecified (principal); R21 Rash and other nonspecific skin eruption
CPT/HCPCS: 80048; 83605; 85025; 96365; 96366; 99282; J7040

== ENCOUNTER → 2024-01-22 | Outpatient (CLI) | payer MEDICARE, BC, SELFPAY | END | disposition home or self-care (01) | LOC: SL 08:01 | PROVIDERS: PCP Internal Medicine; Referring Provider Nurse Practitioner Acute Care; Visit Provider Nurse Practitioner Acute Care | DX: G47.33 Obstructive sleep apnea (adult) (pediatric) (principal); G47.10 Hypersomnia, unspecified | CPT/HCPCS: 95806 ==

== ENCOUNTER → 2024-02-05 | Outpatient (CLI) | payer MEDICARE, BC, SELFPAY | END | disposition home or self-care (01) | LOC: SL 20:06 | PROVIDERS: PCP Internal Medicine; Referring Provider Nurse Practitioner Acute Care; Visit Provider Nurse Practitioner Acute Care | DX: G47.33 Obstructive sleep apnea (adult) (pediatric) (principal) | CPT/HCPCS: 95811 ==